=== PATIENT | female | born 1980 | race Caucasian/White ===

== ENCOUNTER 2021-05-07 05:01 | Emergency (ER) | payer SELFPAY ==
[2021-05-07 05:15] VITALS: RESP 20
[2021-05-07] MEDS: Haloperidol Lactate 5 MG/ML VIAL IM (05:15)
[2021-05-07] MEDS: diphenhydrAMINE HCL 50 MG/ML VIAL IM (05:15)
[2021-05-07 05:17] VITALS: BMI 25.0
[2021-05-07 05:30] VITALS: RESP 22
[2021-05-07 05:45] VITALS: RESP 18
--- NOTE | 2021-05-07 05:46 | ED_ITS ---
HPI - Psych General Chief Complaint: Psychiatric Symptoms Stated Complaint: Crisis Time Seen by Provider: 05/07/21 05:46 Source: EMS Mode of arrival: EMS Limitations: altered mental status History of Present Illness HPI Narrative: Patient is brought by EMS and escorted by police department. Patient is under the influence of alcohol. Patient made suicidal statements to hang herself while intoxicated. EMS gave her 2 mg of Versed EN route to the hospital, on arrival patient needed to be restrained, loud, being disruptive, refused to change, threatening the staff. Patient received Haldol 5 mg IM and Benadryl 50 mg IM. Related Data Allergies Allergy/AdvReac Type Severity Reaction Status Date / Time No Known Allergies Allergy Unverified 07/11/20 15:28 [No Known Allergies*] Review of Systems Review of Systems: Yes Unobtainable due to mental status and Other (Intoxicated) [facility] Past Medical History Medical History Alcohol abuse Social History Social History Patient : No Physical Exam Vital Signs: Vital Signs: Last Vital Signs Resp 16 05/07/21 06:15 Body Mass Index 25.0 Appearance: After being physically and chemically restrained, patient is alert, somnolent, easily arousable. Eyes: Pupils equal, round and reactive to light. ENT: Pharynx normal. Mild epistaxis, bleeding controlled Neck: Normal inspection. Neck supple. No lymph nodes noted. No crepitus CVS: Normal heart rate and rhythm. Pulses normal. Normal S1 and S2 Respiratory: No respiratory distress. Breath sounds normal. No Wheezing. No rales Abdomen: Soft and nontender. No rigidity. No distention. good BS x4 Skin: Skin warm and dry. Normal skin color. Normal skin turgor. Extremities: No lower extremity edema. No lower extremity edema. No Lacerations. No Rash Neuro: Oriented X 3. No motor deficit. No sensory deficit. Moving all extermities. No slurred speech. Course Course Course Narrative: Patient was chemically restrained and physically restrained. The restraints were removed 35 minutes after they were 1st placed. Patient is somnolent calm and cooperative. Once patient maurice up, she can be re-evaluated for suicidal ideation. sign out given to DR. Ball Discharge Plan Discharge Clinical Impression: Alcohol intoxication
[2021-05-07 06:00] VITALS: RESP 18
--- NOTE | 2021-05-07 06:00 | PC.NURSE ---
Patient was in mechanical restraint at time of arrival, escorted by PD, loud and disruptive, violent, combative. heavily intoxicated, no [id number], refused to do foreign exchange dealer, patient received 2 mg of versed IM with no effect, patient was put in four point restraint and administered Haldol 5 mg IM and Benadryl 50 IM, administered as ordered, patient was placed on one to one observation, at 0545 RL & LL restraint released as trial, and then @ 0555 LA & RA restraint released as ordered by provider. Patient is not changed to hospital gown, currently appears sleeping, no distress observed/reported, respiration +/=/non-labored bilaterally, will continue to monitor.
[2021-05-07 06:15] VITALS: RESP 16
--- NOTE | 2021-05-07 07:17 | PC.NURSE ---
report taken from khloe underwood pt came in restrained w pd escort d/t aggressive behaviors. ?etoh. on first contact w this rn, pt is attempting to ambulate to restroom, pt appears in street clothes, changed over w security program manager. pt has unsteady gait, but safe w standby assist. back to room w/o incident. breakfast tray at bedside. pt remembers some details about overnight events in recollection w vadim rn. in behavioral control.
[2021-05-07 09:18] LABS: COVID-19 Test Negative (Negative); IDNOW Serial# 9DD0AD1C
--- NOTE | 2021-05-07 09:18 | PC.NURSE ---
pt asking to leave, ambulating w steady gait, appears agitated. educated about pod process and ordered lab tests. pt agreeable to give urine after drinking some cold water. asking to speak w provider once labs have returned, pt in disagreement about circumstances that brought pt to pod under sec 12. denies si/hi thoughts. admits to multi substance use last night, explaining behaviors last night as due to that influence. sitting in [place] watching television in behavioral control.
[2021-05-07 09:39] LABS: Amphetamine Screen Urine Not Detected (Not Detect); Barbiturates, Urine Not Detected (Not Detect); Benzodiazepines Screen Urine POSITIVE (Not Detect); Cannabinoid Screen Urine Not Detected (Not Detect); Cocaine Screen Urine POSITIVE (Not Detect); Opiate Screen Urine Not Detected (Not Detect); Phencyclidine Screen Urine Not Detected (Not Detect)
--- NOTE | 2021-05-07 11:24 | MHC.CARE ---
CARE Team meets with patient, after she presented to the ED early this morning, and threatened to hang herself while under the influence of alcohol, cocaine and benzodiazepines. Pt is now clinically sober and adamantly denies SI. She denies hx of suicide attempt, inpt hospitalization or depression. She does vaguely acknowledge that she is struggling with addiction. Pt is fixated on being discharged from the ED. She does not consent to CARE Team calling her family members who she lives with, seemingly upset that she did not get to go to [place] with them this morning, but she does give verbal permission for CARE Team to call her close friend, Arpan [phone]. CARE Team speaks with Arpan, who is in daily contact with pt. He states that she has been struggling since a recent arrest. Pt was pulled over after going through a red light and was found to have elicit drugs on her. She is now on probation and was sent to rehab. She relapsed after rehab and was recently in a detox program, but relapsed again after leaving this program. 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 She owns a home that is now being rented out because she moved in with her boyfriend, but they recently broke up. Pt moved in with her mother, which has been a significant stressor. Pt's friend Arpan is concerned about pt's drinking and he was provided education regarding the sect 35 process. He denies any concerns relating to suicidality or depression. Pt denies numerous offers for CARE Team to assist her with getting back into substance use tx. Plan is for pt's friend Arpan to come and pick her up at 1230. Plan is discussed with VEE Sampson, who agrees with this plan.
== END 2021-05-07 12:17 | disposition home or self-care (01) ==
PROVIDERS: Emergency Provider Emergency Medicine
DX: F10.129 Alcohol abuse with intoxication, unspecified (principal); Y90.9 Presence of alcohol in blood, level not specified; R45.851 Suicidal ideations; Z20.822 Contact with and (suspected) exposure to COVID-19; Z79.899 Other long term (current) drug therapy
CPT/HCPCS: 36415; 80307; 87635; 96372; 99284; J1200

== ENCOUNTER 2022-11-02 12:04 | Outpatient (REF) | payer MEDICAID, SELFPAY ==
--- NOTE | ~2022-11-02 | MM_ITS ---
EXAMINATION: MM SCREENING DIGITAL BREAST TOMOSYNTHESIS, BILATERAL CLINICAL INFORMATION: Screening. Asymptomatic. The lifetime risk of breast cancer based on the Tyrer-Cuzick Model is 19.6%. Additional annual screening with breast MRI may be of benefit in women with a score of 20% or greater. COMPARISON: Mammography: None TECHNIQUE: Digital breast tomosynthesis is performed in both the craniocaudal and mediolateral oblique views along with computer-aided detection (CAD). Synthesized 2D images are generated from the tomosynthesis. FINDINGS: There are scattered areas of fibroglandular density (ACR BI-RADS breast composition Category b). There are no significant masses, abnormal calcifications, or other abnormalities. MM/MM tomosynthesis screening BI IMPRESSION: No specific mammographic evidence to suggest malignancy. ASSESSMENT: BI-RADS 1: Negative RECOMMENDATION: Routine annual mammography screening. This patient's information was entered into a reminder system with a target due date for their next mammogram.
== END 2022-11-02 12:05 | disposition home or self-care (01) ==
LOC: HO.MAMMO 12:04
PROVIDERS: PCP Registered Nurse; Visit Provider Registered Nurse
DX: Z12.31 Encounter for screening mammogram for malignant neoplasm of breast (principal)
CPT/HCPCS: 77063; 77067

== ENCOUNTER 2023-08-26 10:54 | Outpatient (REF) | payer MEDICAID, SELFPAY | END 2023-08-26 10:55 | disposition home or self-care (01) | LOC: HO.CHCLDS 10:54 | PROVIDERS: Visit Provider Student in an Organized Health Care Education/Training Program | DX: B89 Unspecified parasitic disease (principal) | CPT/HCPCS: 87086 ==

== ENCOUNTER 2023-08-30 13:27 | Outpatient (REF) | payer MEDICAID, SELFPAY ==
[2023-08-30 16:03] LABS: Adenovirus F 40/41 Not Detected (Not Detect.); Astrovirus Not Detected (Not Detect.); Campylobacter Not Detected (Not Detect.); Cryptosporidium Not Detected (Not Detect.); Cyclospora cayetanensis Not Detected (Not Detect.); E. coli EAEC Not Detected (Not Detect.); E. coli EPEC Not Detected (Not Detect.); E. coli ETEC Not Detected (Not Detect.); E. coli STEC Not Detected (Not Detect.); Entamoeba histolytica Not Detected (Not Detect.); Giardia lamblia Not Detected (Not Detect.); Norovirus GI/GII Not Detected (Not Detect.); Plesiomonas shigelloides Not Detected (Not Detect.); Rotavirus A Not Detected (Not Detect.); Salmonella Not Detected (Not Detect.); Sapovirus Not Detected (Not Detect.); Shigella sp./EIEC Not Detected (Not Detect.); Vibrio Not Detected (Not Detect.); Vibrio Cholerae Not Detected (Not Detect.); Yersinia enterocolitica Not Detected (Not Detect.)
== END 2023-08-30 13:28 | disposition home or self-care (01) ==
LOC: HO.CHCLNP 13:27
PROVIDERS: Visit Provider Student in an Organized Health Care Education/Training Program
DX: B89 Unspecified parasitic disease (principal)
CPT/HCPCS: 87507

== ENCOUNTER → 2023-11-08 12:15 | Outpatient (BNV) | payer MEDICAID, SELFPAY | PROVIDERS: PCP Registered Nurse; Visit Provider Radiology Diagnostic Radiology | DX: Z12.31 Encounter for screening mammogram for malignant neoplasm of breast (principal) | CPT/HCPCS: 77063; 77067 ==

== ENCOUNTER 2023-11-08 12:23 | Outpatient (REF) | payer MEDICAID, SELFPAY ==
--- NOTE | ~2023-11-08 | MM_ITS ---
EXAMINATION: MM SCREENING DIGITAL BREAST TOMOSYNTHESIS, BILATERAL CLINICAL INFORMATION: Screening. Asymptomatic. COMPARISON: Mammography: This study is compared with prior exams dating back to 2022. TECHNIQUE: Digital breast tomosynthesis is performed in both the craniocaudal and mediolateral oblique views along with computer-aided detection (CAD). Synthesized 2D images are generated from the tomosynthesis. FINDINGS: There are scattered areas of fibroglandular density (ACR BI-RADS breast composition Category b). There are no significant masses, abnormal calcifications, or other abnormalities. MM/MM tomosynthesis screening BI IMPRESSION: No mammographic evidence of malignancy. ASSESSMENT: BI-RADS BI-RADS 1 - Negative RECOMMENDATION: Routine annual mammography screening. 1 year F/U This examination should not preclude the clinical evaluation of a suspicious palpable abnormality. This patient's information was entered into a reminder system with a target due date for their next mammogram.
== END 2023-11-08 12:24 | disposition home or self-care (01) ==
LOC: HO.MAMMO 12:23
PROVIDERS: PCP Registered Nurse; Visit Provider Registered Nurse
DX: Z12.31 Encounter for screening mammogram for malignant neoplasm of breast (principal)
CPT/HCPCS: 77063; 77067

== ENCOUNTER 2023-11-12 18:53 | Inpatient (IN) | payer MEDICAID, SELFPAY ==
--- NOTE | ~2023-11-12 | CT_ITS ---
EXAMINATION: CT ABDOMEN AND PELVIS WITHOUT CONTRAST CLINICAL INFORMATION: Flank pain. Hematuria. COMPARISON: None available. TECHNIQUE: Multidetector volumetric imaging was performed from the superior aspect of the liver through the pubic symphysis. Sagittal and coronal reformatted images were obtained on the technologist's workstation. This CT examination was performed using dose optimization techniques as appropriate, variously including the following: *Automated exposure control *Adjustment of mA and/or kV according to patient size (this includes techniques or standardized protocols for targeted exams where dose is matched to indication/reason for exam; i.e. extremities or head) *Use of iterative reconstruction technique DLP: 461 mGy-cm FINDINGS: LUNG BASES: The visualized lung bases are unremarkable. LIVER, GALLBLADDER, AND BILIARY TREE: The liver is normal in size, shape, and attenuation. No focal hepatic lesion or biliary ductal dilatation is present. The gallbladder is unremarkable with no evidence of radiopaque gallstones, gallbladder wall thickening, or obvious pericholecystic inflammatory changes. PANCREAS: Unremarkable. SPLEEN: Unremarkable. ADRENAL GLANDS: Unremarkable. KIDNEYS AND URETERS: The kidneys are normal in size, shape, and attenuation. No hydronephrosis, hydroureter, or calculi seen. No perinephric stranding. BLADDER: Unremarkable. GASTROINTESTINAL TRACT: Diverticulosis. The small and large bowel are otherwise unremarkable. The appendix is unremarkable. Small hiatal hernia. Stomach is otherwise normal ABDOMINAL WALL: No significant hernia is appreciated. LYMPH NODES: Normal. VASCULAR: Unremarkable. PELVIC VISCERA: Unremarkable. OSSEOUS STRUCTURES: Left hip replacement. Old trauma to the left acetabulum and several screws CT/CT abdomen pelvis wo IV con IMPRESSION: No stone or hydronephrosis. Diverticulosis. No evidence of diverticulitis. Small esophageal hernia. Fleischner guidelines were followed.
[2023-11-12 19:48] VITALS: BP 162/113; PULSE 84; RESP 18; TEMP 36.3; O2SAT 97; BMI 28.3
--- NOTE | 2023-11-12 19:48 | ED_ITS ---
HPI - Abdominal Pain General Chief Complaint: Urogenital-Female Stated Complaint: ?Kidney issues/seen at urgent care Time Seen by Provider: 11/12/23 21:25 Related Data Home Medications Medication Instructions Recorded Confirmed clonidine HCl 0.1 mg tablet 0.1 mg PO TID PRN Anxiety 11/13/23 11/13/23 hydroxyzine HCl 25 mg tablet 50 mg PO DAILY PRN Anxiety 11/13/23 11/13/23 lisdexamfetamine 50 mg capsule 50 mg PO DAILY 11/13/23 11/13/23 (Vyvanse) quetiapine 100 mg tablet 100 - 200 mg PO DAILY PRN Sleep 11/13/23 11/13/23 topiramate 50 mg tablet 50 mg PO QPM PRN Headache 11/13/23 11/13/23 Allergies Allergy/AdvReac Type Severity Reaction Status Date / Time No Known Allergies Allergy Verified 11/24/23 10:25 [No Known Allergies*] PMFSH Past Medical History Onset Date is defined in the Problem List Problems that require an onset date and time if occurred within 24 hrs of arrival to the ED Aortic Dissection and Rupture; Neurologic impairment; Cardiopulmonary Arrest; Endotracheal Intubation; Insertion or Replacement of Mechanical Circulatory Assist Device Medical History Insomnia ADHD Mood disorder Alcohol abuse Surgical History (Updated 11/24/23 @ 10:27 by Tawana Dinh MA) History of foot surgery History of hip surgery Family History Family History (Updated 11/24/23 @ 10:28 by Tawana Dinh MA) Father Heart disease Paternal Grandfather Diabetes Social History Social History Household Members: None Housing: Apartment Do you presently have visiting nurse or other home services: No Unable to assess alcohol history related to: Refusing to respond Patient Tobacco Use Status: Current everyday Tobacco user Tobacco use type: Cigarette Cigarettes Per Day: 5 Years Smoked: 30 Substance Use Type: Crack/Cocaine and Marijuana service: No Physical Exam ED Vital Signs: BMI result Body Mass Index 28.3 Course Course Course Narrative: RME-19:50PM - 43yoF presenting to the ED with complaints of increased urination, hematuria, bilateral flank pain concerned for kidney issues. Referred by urgent care. Sister has significant history of kidney disease. There is a family history of kidney stones and cyst. Plan: Labs, CT scan of abdomen pelvis, UA. Patient will be sent back to the waiting room to be evaluated the ED. Medical Decision Making Lab Data 11/13/23 04:58 11/13/23 04:58 Labs: Lab Results 11/12/23 11/12/23 11/12/23 Range/Units 20:22 20:23 20:26 WBC 11.5 H (4.8-10.8) X10*3/uL RBC 3.79 L (4.20-5.50) X10*6/uL Hgb 13.0 (12.0-16.0) g/dl Hct 37.8 (37.0-47.0) % MCV 99.7 H (80.0-98.0) fL MCH 34.3 H (27.0-33.0) pg MCHC 34.4 (31.0-35.0) g/dl RDW 12.9 (11.0-16.0) % Plt Count 578 H (160-400) X10*3/uL MPV 11.6 (9.4-12.3) fL Immature Gran % (Auto) 0.3 (0.0-0.4) % Neut % (Auto) 69.8 (45-73) % Lymph % (Auto) 20.3 (20-40) % Canyon % (Auto) 6.5 (2-11) % Eos % (Auto) 1.9 (0-4) % Baso % (Auto) 1.2 (0-2) % Lymph # (Auto) 2.3 (1.2-4.9) X10*3/uL Canyon # (Auto) 0.8 (0.1-1.2) X10*3/uL Eos # (Auto) 0.2 (0.0-0.4) X10*3/uL Baso # (Auto) 0.1 (0.0-0.2) X10*3/uL Abs Immat Gran (auto) 0.04 H (0.00-0.03) X10*3/uL Absolute Neuts (auto) 8.0 (2.0-8.3) x10*3/uL Absolute Nucleated RBC 0.000 (0.0-0.012) X10*3/uL Nucleated RBC % (auto) 0.0 (0.0-0.2) /100WBC PT 11.0 L (11.1-13.3) SEC INR 0.9 (0.9-1.1) Sodium 143 (135-145) mmol/L Potassium 4.1 (3.3-5.1) mmol/L Chloride 104 (96-108) mmol/L Carbon Dioxide 27 (22-29) mmol/L Anion Gap 16 (12-20) BUN 49 H (9-16) mg/dL Creatinine 4.43 H* (0.5-1.4) mg/dL Estim Creat Clear Calc 15.1 Estimated GFR 11 Random Glucose 93 (60-115) mg/dL Calcium 10.4 H (8.4-10.2) mg/dL Magnesium 1.8 (1.6-2.6) mg/dL Total Bilirubin 0.4 (0.0-1.0) mg/dL AST 12 (5-31) U/L ALT 51 H (0-31) U/L Alkaline Phosphatase 88 (39-117) U/L Total Protein 7.4 (6.5-8.0) g/dL Albumin 3.9 (3.5-5.0) g/dL Beta HCG, Quant < 2 mIU/mL Urine Color Yellow Urine Appearance Clear Urine pH 6.5 (5.0-9.0) Ur Specific Seymour 1.010 (1.005-1.025) Urine Protein Trace (Neg-Trace) mg/dL Urine Glucose (UA) Negative (Negative) mg/dL Urine Ketones Negative (Negative) mg/dL Urine Blood Small (1+) H (Negative) Urine Nitrite Negative (Negative) Ur Leukocyte Esterase Trace H (Negative) Urine RBC 0-2 (0-2) /HPF Urine WBC 11-20 H (0-5) /HPF Ur Squamous Epith Cells 0-2 (0-2) /HPF Urine Bacteria None Seen (None Seen) Hyaline Casts 0-2 (0-2) /LPF Medications Administered Discontinued Medications Generic Name Dose Route Start Last Admin Trade Name Freq PRN Reason Stop Dose Admin Acetaminophen 650 mg 11/12/23 22:26 11/13/23 10:57 Acetaminophen 325 Mg Tablet PO 650 mg Q6H PRN Administration Pain, Mild (Pain Scale 1-3) Clonidine HCl 0.1 mg 11/13/23 13:36 11/13/23 15:38 Clonidine Hcl 0.1 Mg Tablet PO 0.1 mg TID PRN Administration Anxiety Protocol Diazepam 5 mg 11/13/23 06:18 11/13/23 06:46 Diazepam 10 Mg/2 Ml Cartridge IVPUSH 11/13/23 06:19 5 mg STAT STA Administration Enoxaparin Sodium 40 mg 11/12/23 22:30 11/13/23 02:41 Enoxaparin Sodium 40 Mg/0.4 Ml Syringe SUBCUT Not Given Q24H ALEJANDRO Enoxaparin Sodium 30 mg 11/12/23 22:46 11/13/23 02:42 Enoxaparin Sodium 40 Mg/0.4 Ml Syringe SUBCUT Not Given Q24H ALEJANDRO Enoxaparin Sodium 30 mg 11/12/23 23:00 11/12/23 23:46 Enoxaparin Sodium 30 Mg/0.3 Ml Syringe SUBCUT 30 mg Q24H ALEJANDRO Administration Hydromorphone HCl 0.5 mg 11/12/23 23:34 11/12/23 23:47 Hydromorphone Hcl 0.5 Mg/0.5 Ml Syringe IVPUSH 11/12/23 23:35 0.5 mg ONCE ONE Administration Protocol Ceftriaxone Sodium 1 gm/ 50 mls @ 100 mls/hr 11/12/23 22:30 11/13/23 02:00 Sodium Chloride IV Infused Q24H ALEJANDRO Infusion Sodium Chloride 1,000 mls @ 999 mls/hr 11/12/23 22:25 11/13/23 02:00 Ns IV 11/12/23 23:25 Infused .Q1H1M STA Infusion Sodium Chloride 1,000 mls @ 75 mls/hr 11/13/23 07:30 11/13/23 10:52 Ns IVCONT Not Given .[id number] ALEJANDRO Oxycodone HCl 5 mg 11/12/23 22:25 11/13/23 10:44 Oxycodone Hcl Immed Release 5 Mg Tablet PO 5 mg Q6H PRN Administration Pain, Severe (Pain Scale 7-10) Quetiapine Fumarate 100 mg 11/13/23 04:07 11/13/23 04:18 Quetiapine Fumarate 100 Mg Tablet PO 11/13/23 04:08 100 mg ONCE ONE Administration Sodium Chloride 3 ml 11/13/23 00:00 11/13/23 15:11 0.9 % Sodium Chloride Flush 3 Ml Syringe IVFLUSH Not Given QSHIFT [facility] Discharge Plan Discharge Clinical Impression: Renal failure, Abdominal pain Patient Disposition: Admitted As Inpatient Interventions: Admission Worksheet (ED) Last Done: 11/13/23 00:27 Discharge Date/Time: 11/13/23 00:52
[2023-11-12 20:27] LABS: MANUAL DIFF FLAG NO
[2023-11-12 20:33] LABS: Appearance Urine Clear; Color Urine Yellow; Glucose Urine UA Negative (Negative); Leukocyte Esterase Urine Trace (Negative); Nitrite Urine Negative (Negative); PH 6.5 (5.0-9.0); UMIC TRIGGER UACC YES; Urine Blood Small (1+) (Negative); Urine Ketones Negative (Negative); Urine Protein Trace mg/dL (Neg-Trace)
[2023-11-12 20:35] LABS: Basophils Absolute Auto 0.1 X10*3/uL (0.0-0.2); Basophils Percent Auto 1.2 % (0-2); Eosinophils Absolute Auto 0.2 X10*3/uL (0.0-0.4); Eosinophils Percent Auto 1.9 % (0-4); Hematocrit 37.8 % (37.0-47.0); Imm Gran Abs Auto 0.04 X10*3/uL (0.00-0.03); Imm Gran Pct Auto 0.3 % (0.0-0.4); Lymphocytes Absolute Auto 2.3 X10*3/uL (1.2-4.9); Lymphocytes Percent Auto 20.3 % (20-40); Mean Corpuscular HGB Conc 34.4 g/dl (31.0-35.0); Mean Corpuscular Hemoglobin 34.3 pg (27.0-33.0); Mean Corpuscular Volume 99.7 fL (80.0-98.0); Mean Platelet Volume 11.6 fL (9.4-12.3); Monocytes Absolute Auto 0.8 X10*3/uL (0.1-1.2); Monocytes Percent Auto 6.5 % (2-11); Neutrophils Percent Auto 69.8 % (45-73); Platelet Count 578 X10*3/uL (160-400); Red Blood Count 3.79 X10*6/uL (4.20-5.50); Red Cell Distribution Width 12.9 % (11.0-16.0); White Blood Count 11.5 X10*3/uL (4.8-10.8)
[2023-11-12 20:39] LABS: Bacteria Urine None Seen (None Seen); Hyaline Casts Urine 0-2 /LPF (0-2); RBC Urine 0-2 /HPF (0-2); Squamous Epithelial Cell Urine 0-2 /HPF (0-2); UACC Culture Trigger YES
[2023-11-12 20:43] LABS: INTERNATIONAL NORM RATIO 0.9 (0.9-1.1)
[2023-11-12 20:48] LABS: Anion Gap 16 (12-20); Carbon Dioxide 27 mmol/L (22-29); Chloride 104 mmol/L (96-108); Magnesium 1.8 mg/dL (1.6-2.6); Potassium 4.1 mmol/L (3.3-5.1); Sodium 143 mmol/L (135-145)
[2023-11-12 20:49] LABS: Alanine Aminotransferase 51 U/L (0-31); Albumin Level 3.9 g/dL (3.5-5.0); Alkaline Phosphatase 88 U/L (39-117); Aspartate Amino Transferase 12 U/L (5-31); Bilirubin Total 0.4 mg/dL (0.0-1.0); Blood Urea Nitrogen 49 mg/dL (9-16); Calcium 10.4 mg/dL (8.4-10.2); Glucose Random 93 mg/dL (60-115); HCG Quantitative < 2 mIU/mL; Total Protein 7.4 g/dL (6.5-8.0)
[2023-11-12 20:51] LABS: Creatinine Clr Calc Pharmacy 15.1; Estimated Glomerular Filt Rate 11
[2023-11-12 21:40] VITALS: BP 151/116; PULSE 89; RESP 14; TEMP 37; O2SAT 96
--- OUTSIDE RECORDS SUMMARY | 2023-11-12 21:50 | XMS_ITS | Continuity of Care Document ---
Author Name Unknown Organization [facility] Address [address] [place] [address]- Care Team Providers Care Licensed Sales Assistant Name Role Phone Ariadna LONG, Amaya Jeffries Primary Care Physici an Encounter [facility] Date(s): 04/04/21 - 05/04/21 [facility] [address], [place] [address] Immunizations Given and Recorded Vaccine Date Status Refusal Reason tetanus/diphtheria/pertussis, acel(Tdap) 04/08/09 Given Medications Ativan 1 mg oral tablet 1 tablet, By Mouth, 3 times a day, PRN Anxiety, 0 Refills Start Date: 04/12/09 Stop Date: 04/19/09 Status: Ordered Crutches See Instructions, # 1 pair, weight bearing crutches, 04/08/09 14:55:54 Start Date: 04/08/09 Status: Ordered esomeprazole 20 mg oral enteric coated capsule 1 capsule = 20 mg, By Mouth, Daily, # 30 capsule, 1 Refills, EC Capsule Start Date: 10/01/09 Stop Date: 12/04/09 Status: Ordered MS Contin 100 mg oral tablet, extended release 1 tablet, By Mouth, Every 12 hours, # 28 tablet, 0 Refills, ER Tablet Start Date: 10/05/09 Stop Date: 10/19/09 Status: Ordered MS Contin 15 mg oral tablet, extended release 1 tablet = 15 mg, By Mouth, Every 8 hours, # 42 tablet, 0 Refills Start Date: 10/05/09 Stop Date: 10/19/09 Status: Ordered MS Contin 15 mg oral tablet, extended release 1 tablet = 15 mg, By Mouth, Every 12 hours, # 28 tablet, 0 Refills Start Date: 10/05/09 Stop Date: 10/19/09 Status: Ordered oxycodone 15 mg oral tablet 1 tablet = 15 mg, By Mouth, Every 4 to 6 hours, PRN Pain , Moderate, # 40 tablet, 0 Refills, Tablet Start Date: 10/21/09 Stop Date: 10/29/09 Status: Ordered oxycodone 15 mg oral tablet 1 tablet = 15 mg, By Mouth, Every 4 to 6 hours, PRN Pain , Moderate, # 60 tablet, 0 Refills, Tablet Start Date: 10/21/09 Stop Date: 10/29/09 Status: Ordered oxycodone 15 mg oral tablet 1 tablet = 15 mg, By Mouth, Every 4 to 6 hours, PRN Pain , Moderate, # 60 tablet, 0 Refills, Tablet Start Date: 10/05/09 Stop Date: 10/12/09 Status: Ordered oxycodone 40 mg oral tablet, extended release 1 tablet = 40 mg, By Mouth, Every 12 hours, # 28 tablet, 0 Refills, ER Tablet Start Date: 10/04/09 Stop Date: 10/19/09 Status: Ordered Vicodin 500 mg-5 mg oral tablet 1 tablet, By Mouth, Every 4 hours, # 18 tablet, 0 Refills Start Date: 04/08/09 Stop Date: 04/11/09 Status: Ordered Zoloft 100 mg oral tablet = 100 mg, By Mouth, Daily, 0 Refills Start Date: 04/12/09 Stop Date: 05/11/09 Status: Ordered Problem List Condition Effective Dates Status Health Status Inform ant Chronic, continuous use of opioids(Confirmed) Active Hypersomnia(Confirmed) Active
--- OUTSIDE RECORDS SUMMARY | 2023-11-12 21:50 | XMS_ITS | Continuity of Care Document ---
Author Name Unknown Organization [facility] [employer] Address [address], [address] [place] [address]- Care Team Providers Care Polisher Eyeglass Frames Name Role Phone Deneen LONG, Hannah Rojas Primary Care Physicia n [id number] [address], [address] [place] [address]- Attending Physician: Thania Hinton MD Admitting Physician: Thania Hinton MD Referring Physician: Hannah Brothers NP Allergies, Adverse Reactions, Alerts No Known Allergies Immunizations Given and Recorded Vaccine Date Status Refusal Reason SARS-CoV-2 (COVID-19) mRNA BNT-162b2 vac 04/20/21 Recorded tetanus/diphtheria/pertussis, acel(Tdap) 04/08/09 Given hepatitis B adult vaccine 12/22/00 Recorded hepatitis B adult vaccine 11/17/00 Recorded Medications cloNIDine 0.1 mg oral tablet 0.1 mg, 1, tablet, By Mouth, Refills 0, Maintenance, 05/04/23 9:55:00 EDT, Partial fill upon patient request if the prescription is for a schedule II opioid drug. Start Date: 05/04/23 Status: Ordered Crutches See Instructions, # 1 pair, weight bearing crutches, 04/08/09 14:55:54 Start Date: 04/08/09 Status: Ordered Disulfiram By Mouth, Refills 0, Maintenance, 05/04/23 9:56:00 EDT, Partial fill upon patient request if the prescription is for a schedule II opioid drug. Start Date: 05/04/23 Status: Ordered QUEtiapine 200 mg oral tablet 200 mg, 1, tablet, By Mouth, Refills 0, Maintenance, 05/04/23 9:55:00 EDT, Partial fill upon patient request if the prescription is for a schedule II opioid drug. Start Date: 05/04/23 Status: Ordered Topiramate By Mouth, 0 Refills, Maintenance, 05/04/23 9:56:00 EDT, Partial fill upon patient request if the prescription is for a schedule II opioid drug. Start Date: 05/04/23 Status: Ordered Vyvanse 50 mg oral capsule 1 capsule = 50 mg, By Mouth, Daily in AM, 0 Refills, Maintenance, 05/04/23 9:51:00 EDT, Capsule, Partial fill upon patient request if the prescription is for a schedule II opioid drug. Start Date: 05/04/23 Status: Ordered Problem List Condition Confirmation Course Effective Dates Status Health St atus Informant Anxiety Confirmed Active Chronic, continuous use of opioids Confirmed Active Hypersomnia Confirmed Active Obese class I Confirmed Active Social History Social History Type Response Smoking Status 5-9 cigarettes (betw een 1/4 to 1/2 pack)/day in last 30 days entered on: 05/03/23 Sex Patient Care team information Care Team Personnel Name: Kareen HOGAN, Elma Position: Crystal SN RN Member Role: Primary Care Nurse Name: Hannah Brothers NP Position: Reference Physician Member Role: PCP Address: Address: [address] [place] [phone]- Care Team Related Persons Name: FRANCISCODENISE Address: home [address] [place] [address] Name: JOSH TURNER Address: [address] [place] [address]
--- OUTSIDE RECORDS SUMMARY | 2023-11-12 21:50 | XMS_ITS | Continuity of Care Document ---
Author Name Unknown Organization [facility] [employer] Address [address], [address] [place] [address]- Care Team Providers Care Senior Systems Architect Name Role Phone Deneen LONG, Hannah Rojas Primary Care Physicia n Encounter [facility] Date(s): 04/07/23 - 05/07/23 [facility] [address], [address] [place] [address]- Allergies, Adverse Reactions, Alerts No Known Allergies [...] Care team information Care Team Personnel Name: Elma Mathur RN Position: Crystal ARIAS RN Member Role: Primary Care Nurse Name: Hannah Brothers NP Position: Reference Physician Member Role: PCP Address: Address: [address] [place] [id number]- Care Team Related Persons Name: DENISE SINGH Address: home [address] [place] [address] Name: AJ TURNER Address: [address] [place] [address]
--- OUTSIDE RECORDS SUMMARY | 2023-11-12 21:50 | XMS_ITS | Continuity of Care Document ---
Author Name Unknown Organization [facility] ter Address [address] [place] [address]- Care Team Providers Care Medical Records Auditor Name Role Phone Ariadna LONG, Amaya Jeffries Primary Care Physici an Encounter [facility] Date(s): 01/05/23 - 01/05/[address] [address]- Discharge Disposition: A-D/C Home Attending Physician: Aaron Hager MD Admitting Physician: Aaron Hager MD Referring Physician: Not on Staff, Referring MD Allergies, Adverse Reactions, Alerts No Known Allergies Immunizations Given and Recorded Vaccine Date Status Refusal Reason SARS-CoV-2 (COVID-19) mRNA BNT-162b2 vac 04/20/21 Recorded tetanus/diphtheria/pertussis, acel(Tdap) 04/08/09 Given hepatitis B adult vaccine 12/22/00 Recorded hepatitis B adult vaccine 11/17/00 Recorded Medications Acetaminophen Tablet 650 mg, Tablet, By Mouth, Once, STAT, 01/05/23 12:50:00 EDT, Stop date 01/05/23 12:50:00 EDT Start Date: 01/05/23 Stop Date: 01/05/23 Status: Completed Ativan 1 mg oral tablet 1 tablet, [...] Date: 10/05/09 Stop Date: 10/19/09 Status: Ordered ondansetron 4 mg oral tablet, disintegrating 1 tablet = 4 mg, By Mouth, Every 8 hours, PRN as needed for nausea/vomiting, for 3 days, # 9 tablet, 0 Refills, Acute 01/08/23 15:01:00 EDT, 01/05/23 15:01:00 EDT, DIS Tablet, [facility] #[id number], Partial fill upon patient request if the presc... Start Date: 01/05/23 Stop Date: 01/08/23 Status: Ordered oxycodone 15 mg oral tablet [...] Date: 10/04/09 Stop Date: 10/19/09 Status: Ordered traZODone 300 mg oral tablet 1 tablet = 300 mg, By Mouth, Daily at bedtime, # 90 tablet, 3 Refills, Maintenance, 04/18/21 11:44:00 EDT, Tablet, [facility] #[id number], Partial fill upon patient request if the prescription is for a schedule II opioid drug., 158, cm, 04/04/21... Start Date: 04/18/21 Stop Date: 04/13/22 Status: Ordered Vicodin 500 mg-5 mg oral tablet 1 tablet, By Mouth, Every 4 hours, # 18 tablet, 0 Refills Start Date: 04/08/09 Stop Date: 04/11/09 Status: Ordered Zoloft 100 mg oral tablet = 100 mg, By Mouth, Daily, 0 Refills Start Date: 04/12/09 Stop Date: 05/11/09 Status: Ordered Problem List Condition Confirmation Course Effective Dates Status Health St atus Informant Chronic, continuous use of opioids Confirmed Active Hypersomnia Confirmed Active Results Radiology Reports * Exam Date Time Procedure Performing Provider Status 01/05/23 12:17 PM Chest 2 Views Frontal and Lat Hugo Kern; Auth (Verified) Notes: (Chest 2 Views Frontal and Lat) Reason For Exam: Angina RESULT: Chest 2 Views Frontal and Lat Chest 2 Views Frontal and Lat Hx of Present Illness: pt BIBA w c o withdrawl symptoms. Pt's last drink this morning. Pt claims she is due to visit her tomorrow with whom she does not drink. Pt claims she does not experience DTs if she has been medicated hospitalized beforehand. No interest in detox; Reason: Angina; Clinical Question(s): CHF COMPARISON: 04/08/2009. Report 02/01/2014. FINDINGS: No acute cardiopulmonary process IMPRESSION: No acute abnormality. WSN: [id number] Ordering Physician: Alessandra Jones Dictated By: Kory Gant MD Dictated Date/Time: 01/05/23 12:28 p Reviewed By: Kory Gant MD Signed By: Kory Gant MD Signed Date/Time: 01/05/23 12:28 pm Transcribed By: ANETTE Transcribed Date/Time: 01/05/23 12:27 pm Vital Signs Most recent to oldest [Reference Range]: 1 2 3 Oxygen Saturation [94-100 %] 99 % (01/05/23 3:53 PM) 98 % (01/05/23 11:36 AM) Pulse Rate [55-90 bpm] 94 bpm *H* (01/05/23 3:53 PM) 60 bpm (01/05/23 2:00 PM) 106 bpm *H* (01/05/23 12:16 PM) Blood Pressure [90-138/55-84 mm Hg] 139/86mm Hg *H* (01/05/23 3:53 PM) 136/90mm Hg (01/05/23 2:00 PM) 139/96mm Hg *H* (01/05/23 12:16 PM) Respiratory Rate [16-30 br/min] 18 br/min (01/05/23 3:53 PM) 16 br/min (01/05/23 2:08 PM) 18 br/min (01/05/23 2:00 PM) Temperature [96.8-100.4 DegF] 97.9 DegF (01/05/23 3:53 PM) 98 DegF (01/05/23 12:16 PM) 98.5 DegF (01/05/23 11:36 AM) Mode of Delivery (Oxygen) Room air (01/05/23 11:36 AM) Temperature Route Oral (01/05/23 3:53 PM) Oral (01/05/23 12:16 PM) Oral (01/05/23 11:36 AM) EKG study * Event Display: ECG 12-Lead Authored Date: Please click on pdf link to open report * Event Display: ECG 12-Lead Authored Date: Ventricular Rate: 99 BPM Atrial Rate: 99 BPM P-R Interval: 154 ms QRS Duration: 82 ms Q-T Interval: 350 ms QTC Calculation(Bazett): 449 ms P Simpson: 53 degrees R Simpson: 29 degrees T Simpson: 26 degrees Normal sinus rhythm Septal infarct , age undetermined Abnormal ECG No previous ECGs available Confirmed by GREGG PORTER DO ([id number]) on 01/05/2023 12:09:35 PM [place]: GREGG PORTER DO * Event Display: EKG Authored Date: Note * Alessandra Martin: PERFORM Event Display: Patient Education Leaflets Authored Date: Alcohol Withdrawal ?? [id number] Alcohol Withdrawal Alcohol withdrawal often starts after prolonged heavy drinking, and then you suddenly stop drinking. Or you cut down on your alcohol use. It is not one thing. It is a complex combination of signs andsymptoms that often occur together and define a certain problem or condition. ??? Alcohol withdrawal is potentially life-threatening. It is a medical emergency. ??? It can startas early as a couple of hours after your last drink. Or it may take 1 to 3 days to develop. ??? It can last from days to a week or more. ??? It can worsen very quickly. Signs and symptoms There are??several stages of alcohol withdrawal. But they overlap, as do their signs and symptoms. In the earlier stages, it most often includes: ??? Anxiety ??? Shakiness ??? Nausea and vomiting ???Sweating ??? Insomnia ??? Headaches ??? Fever ??? Mood swings, irritability, agitation, restlessness ?? Delirium tremens (DTs) DTs are a severe and life-threatening complication. If??DTs happen, they often start about 3 to 5 days after your last drink. They are potentially life threatening, so medical care should be sought. Symptoms of DTs include: ??? Sudden and severe mental or nervous system changes ??? Uncontrollable tremors ??? Severe disorientation, confusion, hallucinations ??? Heart racing, or irregular heartbeat??? High blood pressure ??? Seizures ??? Possible coma and ?? Home care ??? You'll need plenty of rest and fluids over the next several days. Eat regular meals and drink plenty of fluids to prevent dehydration. Don't drink any more alcohol. During this time, itis best that you're not alone. Stay with family or friends who can help and support you. You can also admit yourself to a residential detox program. ??? Don't drive until all symptoms are gone and you are feeling better. If you've had a seizure, don't drive until you've been examined by a healthcare provider. ??? If you were given sedative medicine to reduce your symptoms, don't take it more often than prescribed. Never take it with alcohol. ?? Follow-up care Once you've gone through the withdrawal symptoms, you've fought half of the garrido. To avoid the risk of going back to your past drinking pattern, it's vital that you get follow-up support and treatment. ??? Alcoholics Anonymous (AA) offers support through a self-help fellowship. There are no dues or fees. Search the internet or go to the AA website at www.aa.org to find a local meeting place. ??? [employer] offers support to families of alcohol users. Go to the Al-Anon website at www.al01Games Technologyanon.org . ??? Residential alcohol detox programs are available. Search the internet for treatment centers [facility]. ?? Call 911 Call 911 if any of these occur: ??? Seizure ??? Trouble breathing or slow, irregular breathing ??? Chest pain ??? Sudden weakness on a side of the body or sudden trouble speaking ??? Heavy bleeding or vomiting blood ??? Very drowsy or trouble awakening ??? Fainting or loss of consciousness ??? Rapid heart rate ?? When to get medical advice Call your healthcare provider right away??if any of these occur: ??? Severe shakiness ??? Hallucinations ??? Fever over 100.4?? F (38.0?? C) ??? Headache, confusion, extreme drowsiness, inability to awaken ??? Increasing upper abdominal pain ??? Repeated vomiting ?? Last Reviewed Date: 2021 ?? [id number] [employer]. All rights reserved. This information is not intended as a substitute for professional medical care. Always follow your healthcare professional's instructions. ?? * Pepper , CIS S: JOHNSON Gant MD, Kory P: VERIFY Event Display: Result: Authored Date: [id number] Chest 2 Views Frontal and Lat Hx of Present Illness: pt BIBA w c o withdrawl symptoms. Pt's last drink this morning. Pt claims she is due to visit her tomorrow with whom she does not drink. Pt claims she does not experience DTs if she has been medicated hospitalized beforehand. No interest in detox; Reason: Angina; Clinical Question(s): CHF COMPARISON: 04/08/2009. Report 02/01/2014. FINDINGS: No acute cardiopulmonary process IMPRESSION: No acute abnormality. WSN: [id number] Ordering Physician: Alessandra Jones Dictated By: Kory Gant MD Dictated Date/Time: 01/05/23 12:28 p Reviewed By: Kory Gant MD Signed By: Kory Gant MD Signed Date/Time: 01/05/23 12:28 pm Transcribed By: CSB Transcribed Date/Time: 01/05/23 12:27 pm Patient Care team information Care Team Personnel Name: Elma Mathur RN Position: [facility] SN RN Member Role: Primary Care Nurse Name: Ariadna LONG, Amaya Jeffries Position: [facility] PCO Associate Professional Member Role: PCP Address: Address: [address] [place] [address]- Name: Alessandra Martin Position: [facility] Associate Professional Member Role: ED Physician Scrap Preparer Address: Address: [address] [place] [address] [place] [address]- [place] Name: Anjelica Sharp Position: [facility] ED RN W/OE and Tasks Member Role: Patient Care Provider Name: Aaron Hager MD Position: [facility] ED Medicine MD Member Role: Admitting Physician Address: Address: [address] [facility] [place] [address]- [place] Name: Jackson Arguello Position: [facility] ED TA GERHARD Member Role: Search Engine Optimizer Care Team Related Persons Name: DENISE SINGH Address: home [address] [place] [address] Name: AJ TURNER Address: [address] [place] [address]
--- OUTSIDE RECORDS SUMMARY | 2023-11-12 21:50 | XMS_ITS | Continuity of Care Document ---
Author Name Unknown Organization [facility] ter Address [address] [place] [address]- Care Team Providers Care Answering Service Agent Name Role Phone Deneen LONG, Hannah Rojas Primary Care Physicia n Encounter [facility] Date(s): 06/12/23 - 06/12/[address] [address]- Encounter Diagnosis Right hip pain(Final) - 06/12/23 Congenital hip dysplasia(Final) - 06/12/23 Discharge Disposition: A-D/C Home Attending Physician: Antoni Pitt MD Admitting Physician: Antoni Pitt MD Referring Physician: Not on Staff, Referring [...] Confirmed Active Obese class I Confirmed Active Results Radiology Reports * Exam Date Time Procedure Performing Provider Status 06/12/23 3:11 PM XR Femur 2 Views Right Bein , Julieth; Au th (Verified) Notes: (XR Femur 2 Views Right) Reason For Exam: with Pain;Trauma RESULT: Femur 2 Views Right Femur 2 Views Right INDICATION: Hx of Present Illness: Right hip pain after walking on beach sand. Hx of hip problems and dislocations. Since getting here pt feeling better and now ambulatory but pain still remains; Reason: Trauma; with Pain; Clinical Question(s): Fracture COMPARISON: None. FINDINGS: Unremarkable soft tissue. There is no fracture or dislocation. Joint space is maintained. IMPRESSION: Normal. WSN: [id number] Ordering Physician: Antoni Pitt Dictated By: Jasmin Ward MD Dictated Date/Time: 06/12/23 3:27 pm Reviewed By: Jasmin Ward MD Signed By: Jasmin Ward MD Signed Date/Time: 06/12/23 3:27 pm Transcribed By: ANETTE Transcribed Date/Time: 06/12/23 3:27 pm * Exam Date Time Procedure Performing Provider Status 06/12/23 3:11 PM XR Femur 2 Views Left Bein , Julieth; Aut h (Verified) Notes: (XR Femur 2 Views Left) Reason For Exam: with Pain;Trauma RESULT: Femur 2 Views Left Femur 2 Views Left INDICATION: Hx of Present Illness: Right hip pain after walking on beach sand. Hx of hip problems and dislocations. Since getting here pt feeling better and now ambulatory but pain still remains; Reason: Trauma; with Pain; Clinical Question(s): Fracture COMPARISON: None. FINDINGS: Status post left total hip replacement. Surgical hardware is intact. No fracture or subluxation. Rest of the left femur is intact. IMPRESSION: No acute finding. WSN: [id number] Ordering Physician: Antoni Pitt Dictated By: Jasmin Ward MD Dictated Date/Time: 06/12/23 3:27 pm Reviewed By: Jasmin Ward MD Signed By: Jasmin Ward MD Signed Date/Time: 06/12/23 3:27 pm Transcribed By: ANETTE Transcribed Date/Time: 06/12/23 3:26 pm * Exam Date Time Procedure Performing Provider Status 06/12/23 3:11 PM Pelvis 1 or 2 Views Julieth Lott; Auth (Verified) Notes: (Pelvis 1 or 2 Views) Reason For Exam: With Pain;Trauma RESULT: Pelvis 1 or 2 Views Pelvis 1 or 2 Views Hx of Present Illness: Right hip pain after walking on beach sand. Hx of hip problems and dislocations. Since getting here pt feeling better and now ambulatory but pain still remains; Reason: Trauma;With Pain; Clinical Question(s): Fracture COMPARISON: 10/02/2009 FINDINGS: Status post left total hip replacement. Surgical hardware is intact. No fracture or subluxation. Multiple surgical screws in the left superior acetabulum. Unchanged fallopian tube occlusion device. IMPRESSION: No acute finding. WSN: [id number] Ordering Physician: Antoni Pitt Dictated By: Jasmin Ward MD Dictated Date/Time: 06/12/23 3:26 pm Reviewed By: Jasmin Ward MD Signed By: Jasmin Ward MD Signed Date/Time: 06/12/23 3:26 pm Transcribed By: ANETTE Transcribed Date/Time: 06/12/23 3:24 pm Vital Signs Most recent to oldest [Reference Range]: 1 2 Weight 90 kg (06/12/23 12:49 PM) Oxygen Saturation [94-100 %] 100 % (06/12/23 12:49 PM) 100 % (06/12/23 12:45 PM) Pulse Rate [55-90 bpm] 75 bpm (06/12/23 12:49 PM) 100 bpm *H* (06/12/23 12:45 PM) Blood Pressure [90-138/55-84 mm Hg] 188/ 75mm Hg *H* (06/12/23 12:49 PM) Respiratory Rate [16-30 br/min] 16 br/mi n (06/12/23 12:49 PM) Temperature [96.8-100.4 DegF] 98.0 DegF (06/12/23 12:49 PM) Mode of Delivery (Oxygen) Room air (06/12/23 12:49 PM) Room air (06/12/23 12:45 PM) Blood pressure sites Arm, left (06/12/23 12:49 PM) Temperature Route Oral (06/12/23 12:49 PM) Dry Weight 90 kg (06/12/23 12:49 PM) Social History Social History Type Response Smoking Status 5-9 cigarettes (betw een 1/4 to 1/2 pack)/day in last 30 days entered on: 05/03/23 Sex Patient Care team information Care Team Personnel Name: Elma Mathur RN Position: [facility] SN RN Member Role: Primary Care Nurse Name: Hannah Brothers NP Position: Reference Physician Member Role: PCP Address: Address: [address] [place] [id number] Name: Antoni Pitt MD Position: [facility] ED Medicine MD Member Role: Admitting Physician Address: Address: [address] [place] [address]- Name: Francisco Cooper Position: [facility] ED TA [facility] Member Role: Patient Care Provider Name: Sushila Vizcaino RN Position: [facility] ED RN W/OE and Tasks Member Role: Patient Care Provider Name: Ann Hylton NP Position: [facility] Associate Professional Member Role: ED Physician Wool Washer Address: Address: [address] [place] [address] Care Team Related Persons Name: FRANCISCO, DENISE Address: [address] [place] [address] Name: AJ TURNER Address: [address] [place] [address]
--- OUTSIDE RECORDS SUMMARY | 2023-11-12 21:50 | XMS_ITS | Continuity of Care Document ---
Author Name Unknown Organization [facility] Address [address] [place] [address]- Care Team Providers Care Knockout Man Name Role Phone Kathryn Cannon NP Primary Care Physician Encounter [facility] [place] Date(s): 04/04/21 - 04/11/21 [facility] [address] [place], [place] [address] Attending Physician: Ary Mann NP Immunizations Given and Recorded Vaccine Date Status [...] Date: 04/12/09 Stop Date: 05/11/09 Status: Ordered Vital Signs Most recent to oldest [Reference Range]: 1 Height 158 cm (04/04/21 2:04 PM)
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
--- OUTSIDE RECORDS SUMMARY | 2023-11-12 21:50 | XMS_ITS | Continuity of Care Document ---
Author Name Unknown Organization [facility] Address [address] [place] [address]- Care Team Providers Care Lead Oracle Developer Name Role Phone Deneen LONG, Hannah Rojas Primary Care Physicia n Encounter [facility] [place] Date(s): 04/29/23 - 05/29/23 [facility] [address] [place] [address]- Attending Physician: Stephanie Mendenhall Admitting Physician: AdmtrStephanie Referring Physician: Admtr, Ar8 Allergies, Adverse Reactions, Alerts No Known Allergies [...] Personnel Name: Kareen HOGAN, Elma Position: [facility] RN Member Role: Primary Care Nurse Name: Hannah Brothers NP Position: Reference Physician Member Role: PCP Address: Address: [address] [place] [address]- Care Team Related Persons Name: DENISE SINGH Address: [address] [place] [address] Name: AJ TURNER Address: [address] [place] [address]
--- OUTSIDE RECORDS SUMMARY | 2023-11-12 21:50 | XMS_ITS | Continuity of Care Document ---
Author Name Unknown Organization [facility] ter Address [address] [place] [address]- Care Team Providers Care Social Media Marketing Manager Name Role Phone Deneen LONG, Hannah Rojas Primary Care Physicia n Encounter [facility] [place] Date(s): 06/14/23 - 06/14/[address] [address]- Encounter Diagnosis Formication(Final) - 06/14/23 Cocaine use(Final) - 06/14/23 Alcohol abuse(Final) - 06/14/23 Discharge Disposition: A-D/C Home Attending Physician: Dom Yadav MD Admitting Physician: Dom Yadav MD Referring Physician: Not on Staff, Referring [...] Confirmed Active Obese class I Confirmed Active Vital Signs Most recent to oldest [Reference Range]: 1 Oxygen Saturation [94-100 %] 94 % (06/14/23 12:33 AM) Pulse Rate [55-90 bpm] 120 bpm *H* (06/14/23 12:33 AM) Respiratory Rate [16-30 br/min] 18 br/mi n (06/14/23 12:33 AM) Mode of Delivery (Oxygen) Room air (06/14/23 12:33 AM) Social History Social History Type Response Smoking Status 5-9 cigarettes (betw een 1/4 to 1/2 pack)/day in last 30 days entered on: 05/03/23 Sex Patient Care team information Care Team Personnel Name: Kareen HOGAN, Elma Position: [facility] SN RN Member Role: Primary Care Nurse Name: Hannah Brothers NP Position: Reference Physician Member Role: PCP Address: Address: [address] [place] [address]- Name: Ann Martinez MD Position: [facility] Resident Member Role: ED Resident Address: Address: [address] [place] [address] [place] [address]- Name: Dom Yadav MD Position: [facility] Resident Member Role: ED Attending Physician Address: Address: [address] [place] [address] [place] [address]- [place] Name: Mahnaz Downing RN Position: S ED RN W/OE and Tasks Member Role: Patient Care Provider Care Team Related Persons Name: DENISE SINGH Address: home [address] [place] [address] Name: AJ TURNER Address: [address] [place] [address]
--- OUTSIDE RECORDS SUMMARY | 2023-11-12 21:50 | XMS_ITS | Continuity of Care Document ---
Author Name Unknown Organization [facility] ter Address [address] [place] [address]- Care Team Providers Care Bit Tapper Name Role Phone Deneen LONG, Hannah Rojas Primary Care Physicia n Encounter [facility] [place] Date(s): 07/11/23 - 09/10/[address] [address]- Attending Physician: Thania Hinton MD Admitting Physician: Thania Hinton MD Allergies, Adverse Reactions, Alerts No Known [...] Reference Physician Member Role: PCP Address: Address: [address] [place] [address]- Care Team Related Persons Name: DENISE SINGH Address: [address] [place] [address] Name: JOSH TURNER Address: [address] [place] [address]
--- OUTSIDE RECORDS SUMMARY | 2023-11-12 21:50 | XMS_ITS | Continuity of Care Document ---
Author Name Unknown Organization [facility] ter Address [address] [place] [address]- Care Team Providers Care Instrument Technologist Name Role Phone Ariadna LONG, Amaya Jeffries Primary Care Physici an Encounter [facility] Date(s): 08/28/22 - 08/28/[address] [address]- Encounter Diagnosis Agitation(Final) - 08/28/22 Discharge Disposition: A-D/C Home Attending Physician: Anthony Garcia MD Admitting Physician: Anthony Garcia MD Referring Physician: Not on Staff, Referring MD Allergies, Adverse Reactions, Alerts No Known Allergies Immunizations Given and Recorded Vaccine Date Status Refusal Reason SARS-CoV-2 (COVID-19) mRNA BNT-162b2 vac 04/20/21 Recorded tetanus/diphtheria/pertussis, acel(Tdap) 04/08/09 Given hepatitis B adult vaccine 12/22/00 Recorded hepatitis B adult vaccine 11/17/00 Recorded Medications Ativan 1 mg oral tablet 1 [...] 3 Refills, Maintenance, 04/18/21 11:44:00 EDT, Tablet, [id number], Partial fill upon patient request if the [...] of opioids Confirmed Active Hypersomnia Confirmed Active Vital Signs Most recent to oldest [Reference Range]: 1 2 3 Oxygen Saturation [94-100 %] 95 % (08/28/22 7:18 PM) 97 % (08/28/22 3:06 PM) 88 % *L* (08/28/22 3:00 PM) Pulse Rate [55-90 bpm] 109 bpm *H* (08/28/22 7:18 PM) 93 bpm *H* (08/28/22 3:06 PM) 105 bpm *H* (08/28/22 1:26 PM) Blood Pressure [90-138/55-84 mm Hg] 103/80mm Hg (08/28/22 7:18 PM) 139/107mm Hg *H* (08/28/22 1:26 PM) Respiratory Rate [16-30 br/min] 16 br/min (08/28/22 7:18 PM) 22 br/min (08/28/22 1:26 PM) Temperature [96.8-100.4 DegF] 98.3 DegF (08/28/22 1:26 PM) Liters per Minute 2 L/min (08/28/22 3:06 PM) Mode of Delivery (Oxygen) Room air (08/28/22 7:18 PM) Nasal cannula (08/28/22 3:06 PM) Room air (08/28/22 3:00 PM) Blood pressure sites Arm, right (08/28/22 7:18 PM) Arm, left (08/28/22 1:26 PM) Temperature Route Oral (08/28/22 1:26 PM) Weight Obtained Via UTO (08/28/22 1:26 PM) Dry Weight Obtained Via UTO (08/28/22 1:26 PM) Patient Care team information Personnel Name: Ariadna LONG, Amaya Jeffries Address: Address: [address] [place] [address]
--- OUTSIDE RECORDS SUMMARY | 2023-11-12 21:50 | XMS_ITS | Continuity of Care Document ---
Author Name Unknown Organization [facility] ter Address [address] [place] [address]- Care Team Providers Care Title I Director Name Role Phone Ariadna LONG, Amaya Jeffries Primary Care Physici an Encounter [facility] [place] Date(s): 03/26/22 - 03/26/[address] [address]- Discharge Disposition: A-D/C Walkout Attending Physician: Not on Staff, Attending MD Admitting Physician: Not on Staff, Admitting MD Referring Physician: Not on Staff, Referring MD Immunizations Given and Recorded Vaccine Date [...]
--- OUTSIDE RECORDS SUMMARY | 2023-11-12 21:50 | XMS_ITS | Continuity of Care Document ---
Author Name Unknown Organization [facility] Yulissa Mercado [id number] Group Address [address] [facility], [address] [place] [address]- Care Team Providers Care Bin Cleaner Name Role Phone Deneen LONG, Hannah Rojas Primary Care Physicia n [id number]): [facility] - 09[facility]08[facility]23 [facility] [id number] [facility] [address] [facility] [address] [facility], [address] [place] [address]- Attending Physician: Thania Hinton MD Admitting Physician: [...] Reference Physician Member Role: PCP Address: Address: [address] [place] [id number]- Care Team Related Persons Name: FRANCISCODENISE Address: home [address] [place] [address] Name: JOSH TURNER Address: [address] [place] [address]
--- OUTSIDE RECORDS SUMMARY | 2023-11-12 21:50 | XMS_ITS | Continuity of Care Document ---
Author Name Unknown Organization [facility] Yulissa Mercado n's Group Address [address] [facility], [address] [place] [address]- Care Team Providers Care Strap Maker Name Role Phone Deneen LONG, Hannah Rojas Primary Care Physicia n Encounter [facility] Date(s): 03/01/23 - 03/31/23 [facility] [address] [facility], 4th [place] [address]- Allergies, Adverse Reactions, Alerts No Known Allergies [...] 3 Refills, Maintenance, 04/18/21 11:44:00 EDT, Tablet, [id number], Partial fill upon patient request if the [...] of opioids Confirmed Active Hypersomnia Confirmed Active Patient Care team information Care Team Personnel Name: Kareen RN, Elma Position: S SN RN Member Role: Primary Care Nurse Name: Deneen LONG, Hannah Rojas Position: Reference Physician Member Role: PCP Address: Address: [address] [place] [address]- Care Team Related Persons Name: DENISE SINGH Address: home [address] [place] [address] Name: AJ TURNER Address: [address] [place] [address]
--- OUTSIDE RECORDS SUMMARY | 2023-11-12 21:50 | XMS_ITS | Continuity of Care Document ---
Author Name Unknown Organization [facility] Address [address] [place] [address]- Care Team Providers Care Castings Drafter Name Role Phone Ariadna LONG, Amaya Jeffries Primary Care Physici an Encounter [facility] Date(s): 04/04/21 - 05/04/21 [facility] [address] [place], [place] [address] Attending Physician: Stephanie Mendenhall Admitting Physician: Stephanie Mendenhall Referring Physician: AdmtrStephanie Immunizations Given and Recorded Vaccine Date Status [...]
--- OUTSIDE RECORDS SUMMARY | 2023-11-12 21:50 | XMS_ITS | Continuity of Care Document ---
Author Name Unknown Organization [facility] Yulissa Mercado nBIOCUREXs Group Address [address] [facility], [address] [place] [address]- Care Team Providers Care Prototype Fabricator Name Role Phone Deneen LONG, Hannah Rojas Primary Care Physicia n [place] [facility] Date(s): 08/30/23 - 09/29/23 [facility]uliss[facility]ley PradhanBIOCUREXs [facility] [address] [facility], [address] [place] [address]- Attending Physician: Admlacie, Stephanie Admitting Physician: [id number] Referring Physician: Admtr, Ar8 Allergies, Adverse Reactions, [...] Reference Physician Member Role: PCP Address: Address: [address] [place] [address]- Care Team Related Persons Name: FRANCISCODENISE Address: [address] [place] [address] Name: JOSH TURNER Address: home [address] [place] [address]
--- NOTE | 2023-11-12 22:20 | ED_ITS ---
HPI - Female Genitourinary General Chief complaint: Urogenital-Female Stated complaint: ?Kidney issues/seen at urgent care Time Seen by Provider: 11/12/23 21:25 History of Present Illness HPI Narrative: Patient is a 43-year-old female presented today from urgent care with having increasing pain to the flank and abdomen area bilaterally. Pain on urination. Patient feels an increased hunger frequent weight loss been ongoing for the last few weeks. Came to the ED for further evaluation. Is no fever no chills. Did no leg swelling. Positive history of NSAID use. Patient has been using Motrin for the abdominal pain. Related Data Allergies Allergy/AdvReac Type Severity Reaction Status Date / Time No Known Allergies Allergy Verified 11/12/23 19:47 [No Known Allergies*] Review of Systems 2 Review of Systems: Positive abdominal pain ongoing for days Yes all other systems are reviewed and are negative PMFSH Past Medical History Onset Date is defined in the Problem List Problems that require an onset date and time if occurred within 24 hrs of arrival to the ED Aortic Dissection and Rupture; Neurologic impairment; Cardiopulmonary Arrest; Endotracheal Intubation; Insertion or Replacement of Mechanical Circulatory Assist Device Medical History Alcohol abuse Social History Social History Smoked in Last 30 Days: Yes Use of substances other than those prescribed or required for medical reasons: Yes Substance Use Type: Crack/Cocaine Substance Use Frequency: Occasionally Last Used Substance: Unknown Any prior treatment program specific to substance use: No Advance Directives: No Advance Directives Information Provided: No Patient : No Physical Exam 2 Vital Signs: Vital Signs: Last Vital Signs Temp 98.6 F 11/12/23 21:40 Pulse 89 11/12/23 21:40 Resp 14 11/12/23 21:40 BP 151/116 H 11/12/23 21:40 Pulse Ox 96 11/12/23 21:40 O2 Del Method Room Air 11/12/23 21:40 BMI result Body Mass Index 28.3 Appearance: Alert. Oriented X3. No acute distress. Eyes: Pupils equal, round and reactive to light. ENT: Pharynx normal. Neck: Normal inspection. Neck supple. No lymph nodes noted. No crepitus CVS: Normal heart rate and rhythm. Pulses normal. Normal S1 and S2 Respiratory: No respiratory distress. Breath sounds normal. No Wheezing. No rales Abdomen: Soft and nontender. No rigidity. No distention. good BS x4 Skin: Skin warm and dry. Normal skin color. Normal skin turgor. Extremities: No lower extremity edema. Neurovascular intact to all extremities. No Lacerations. No Rash Neuro: Oriented X 3. No motor deficit. No sensory deficit. Moving all extermities. No slurred speech Medical Decision Making Medical Decision Making [facility] Narrative: Patient's blood pressure elevated here in the emergency department of 150/116. Urine showed no evidence of infection but did have trace protein. Patient's creatinine is 4. There is no old creatinine to compare. CT scan of the abdomen pelvis was done. There was no acute evidence of post obstructive renal failure. The CT scan showed no acute finding no evidence of diverticulitis no evidence of abscess no evidence of perforation. IV fluids started. Will admit patient for further evaluation. Patient's hemoglobin is 13. Differential Diagnosis Differential Diagnoses: The differential diagnosis associated with the presentation includes Renal failure, obstruction, abscess, diverticulitis Admission/Observation Consideration of admission/observation: Escalation of care including admission/observation considered Lab Data [facility] Lab Attestation statement: I reviewed the patient's lab results. 11/12/23 20:23 11/12/23 20:22 Labs: Lab Results 11/12/23 11/12/23 11/12/23 Range/Units 20:22 20:23 20:26 WBC 11.5 H (4.8-10.8) X10*3/uL RBC 3.79 L (4.20-5.50) X10*6/uL Hgb 13.0 (12.0-16.0) g/dl Hct 37.8 (37.0-47.0) % MCV 99.7 H (80.0-98.0) fL MCH 34.3 H (27.0-33.0) pg MCHC 34.4 (31.0-35.0) g/dl RDW 12.9 (11.0-16.0) % Plt Count 578 H (160-400) X10*3/uL MPV 11.6 (9.4-12.3) fL Immature Gran % (Auto) 0.3 (0.0-0.4) % Neut % (Auto) 69.8 (45-73) % Lymph % (Auto) 20.3 (20-40) % [place] % (Auto) 6.5 (2-11) % Eos % (Auto) 1.9 (0-4) % Baso % (Auto) 1.2 (0-2) % Lymph # (Auto) 2.3 (1.2-4.9) X10*3/uL [place] # (Auto) 0.8 (0.1-1.2) X10*3/uL Eos # (Auto) 0.2 (0.0-0.4) X10*3/uL Baso # (Auto) 0.1 (0.0-0.2) X10*3/uL Abs Immat Gran (auto) 0.04 H (0.00-0.03) X10*3/uL Absolute Neuts (auto) 8.0 (2.0-8.3) x10*3/uL Absolute Nucleated RBC 0.000 (0.0-0.012) X10*3/uL Nucleated RBC % (auto) 0.0 (0.0-0.2) /100WBC PT 11.0 L (11.1-13.3) SEC INR 0.9 (0.9-1.1) Sodium 143 (135-145) mmol/L Potassium 4.1 (3.3-5.1) mmol/L Chloride 104 (96-108) mmol/L Carbon Dioxide 27 (22-29) mmol/L Anion Gap 16 (12-20) BUN 49 H (9-16) mg/dL Creatinine 4.43 H* (0.5-1.4) mg/dL Estim Creat Clear Calc 15.1 Estimated GFR 11 Random Glucose 93 (60-115) mg/dL Calcium 10.4 H (8.4-10.2) mg/dL Magnesium 1.8 (1.6-2.6) mg/dL Total Bilirubin 0.4 (0.0-1.0) mg/dL AST 12 (5-31) U/L ALT 51 H (0-31) U/L Alkaline Phosphatase 88 (39-117) U/L Total Protein 7.4 (6.5-8.0) g/dL Albumin 3.9 (3.5-5.0) g/dL Beta HCG, Quant < 2 mIU/mL Urine Color Yellow Urine Appearance Clear Urine pH 6.5 (5.0-9.0) Ur Specific [place] 1.010 (1.005-1.025) Urine Protein Trace (Neg-Trace) mg/dL Urine Glucose (UA) Negative (Negative) mg/dL Urine Ketones Negative (Negative) mg/dL Urine Blood Small (1+) H (Negative) Urine Nitrite Negative (Negative) Ur Leukocyte Esterase Trace H (Negative) Urine RBC 0-2 (0-2) /HPF Urine WBC 11-20 H (0-5) /HPF Ur Squamous Epith Cells 0-2 (0-2) /HPF Urine Bacteria None Seen (None Seen) Hyaline Casts 0-2 (0-2) /LPF Independent Interpretation I performed an independent interpretation of an: CT Scan (No natalia obstruction noted) Radiology Impression Discussion of test interpretation with radiology: I have reviewed the radiologist's reading. External Record Review External record reviewed: Inpatient record Discharge Plan Discharge Clinical Impression: Renal failure, Abdominal pain Patient Disposition: Admitted As Inpatient
--- NOTE | 2023-11-12 22:27 | P.HPHOSP_ITS ---
History of Present Illness Date of Service: 11/12/23 Chief Complaint: Flank pain This is a 43-year-old female with pertinent history of mood disorder, insomnia who presents to the emergency department for evaluation of flank pain. Patient states that over the last 2 days, she has been having progressively worse bilateral flank pain which is without any relief. She states she has been sick over the last 2 weeks with nausea, nonbloody emesis, generalized fatigability. Also complains of increasing urinary frequency and intermittent hematuria. States she had a fever of 101 at home and has been having chills. Does use NSAIDs. Patient admits poor p.o. intake over the last 2 weeks as she was sick. Sister with history of glomerulonephritis and aunt has some kidney issues. Patient states that as far as she knows she does not have any kidney issues. No chest discomfort, palpitations, shortness of breath, changes in bowel habits. States she took p.o. antibiotics prior to coming to the ER as she thought she had a kidney infection. In the emergency department, creatinine found to be elevated. Review of Systems 2 Constitutional: Constitutional: Reports chills, Reports fatigue, Reports fever(s), Reports lethargy, Reports malaise and Reports weakness Cardiovascular: Cardiovascular: Reports no additional cardiovascular complaints Respiratory: Respiratory: Reports no additional respiratory complaints Gastrointestinal: Gastrointestinal: Reports nausea Genitourinary: Genitourinary: Reports hematuria and Reports urinary urgency Neurologic: Reports weakness Endocrine: Endocrine: Reports fatigue PMFSH Medical History Insomnia ADHD Mood disorder Alcohol abuse Pertinent family history: Sister with GN and aunt with kidney and thyroid issues Social History Smoked in Last 30 Days: Yes Use of substances other than those prescribed or required for medical reasons: Yes Substance Use Type: Crack/Cocaine Substance Use Frequency: Occasionally Last Used Substance: Unknown Any prior treatment program specific to substance use: No Advance Directives: No Advance Directives Information Provided: No Patient : No Meds Allergies Allergy/AdvReac Type Severity Reaction Status Date / Time No Known Allergies Allergy Verified 11/12/23 19:47 [No Known Allergies*] Active Medications: Current Medications Ceftriaxone Sodium 1 gm/ (Sodium Chloride) 50 mls @ 100 mls/hr IV Q24H ALEJANDRO Sodium Chloride (Ns) 1,000 mls @ 999 mls/hr IV .Q1H1M STA Stop: 11/12/23 23:25 Oxycodone HCl (Oxycodone Hcl Immed Release 5 Mg Tablet) 5 mg PO Q6H PRN PRN Reason: Pain, Severe (Pain Scale 7-10) Physical Exam 2 Vital Signs and Narrative: Vital Signs: Last Vital Signs Temp 98.6 F 11/12/23 21:40 Pulse 89 11/12/23 21:40 Resp 14 11/12/23 21:40 BP 151/116 H 11/12/23 21:40 Pulse Ox 96 11/12/23 21:40 O2 Del Method Room Air 11/12/23 21:40 BMI result Body Mass Index 28.3 Middle-aged female lying in bed in my distress Neck supple, no JVD Regular rate and rhythm, S1-S2 heard Regular breath sounds bilaterally, no wheezing or crackles appreciated Abdomen with bilateral CVA tenderness, no guarding, no rigidity, no rebound tenderness Patient is awake, alert and oriented to self, place, time and person ; no focal motor deficit Psych: Normal mood No pedal edema Results Labs 11/12/23 20:23 11/12/23 20:22 Labs: Laboratory Results - last 24 hr 11/12/23 11/12/23 11/12/23 20:22 20:23 20:26 MCV 99.7 H MCH 34.3 H MCHC 34.4 RDW 12.9 Plt Count 578 H MPV 11.6 Immature Gran % (Auto) 0.3 Neut % (Auto) 69.8 Lymph % (Auto) 20.3 [place] % (Auto) 6.5 Eos % (Auto) 1.9 Baso % (Auto) 1.2 Lymph # (Auto) 2.3 [place] # (Auto) 0.8 Eos # (Auto) 0.2 Baso # (Auto) 0.1 Abs Immat Gran (auto) 0.04 H Absolute Neuts (auto) 8.0 Absolute Nucleated RBC 0.000 Nucleated RBC % (auto) 0.0 PT 11.0 L INR 0.9 Anion Gap 16 Estim Creat Clear Calc 15.1 Estimated GFR 11 Random Glucose 93 Calcium 10.4 H Magnesium 1.8 Total Bilirubin 0.4 AST 12 ALT 51 H Alkaline Phosphatase 88 Total Protein 7.4 Albumin 3.9 Beta HCG, Quant < 2 Urine Color Yellow Urine Appearance Clear Urine pH 6.5 Ur Specific [place] 1.010 Urine Protein Trace Urine Glucose (UA) Negative Urine Ketones Negative Urine Blood Small (1+) H Urine Nitrite Negative Ur Leukocyte Esterase Trace H Urine RBC 0-2 Urine WBC 11-20 H Ur Squamous Epith Cells 0-2 Urine Bacteria None Seen Hyaline Casts 0-2 Imaging Radiologist's Impressions: Impressions Abdomen/Pelvis CT 11/12/23 21:26 IMPRESSION: No stone or hydronephrosis. Diverticulosis. No evidence of diverticulitis. Small esophageal hernia. Fleischner guidelines were followed. Assessment and Plan (1) Acute kidney injury: Status: Acute Plan This is a 43-year-old female with pertinent history of mood disorder, insomnia who presents to the emergency department for evaluation of flank pain and will be admitted for evaluation of elevated creatinine. #. Clinical pyelonephritis: Will initiate empiric IV antibiotics. No sepsis. UA with 15-20 WBC, no bacteria but patient took p.o. antibiotics prior to coming to the ER. #. Acute kidney injury: Unclear baseline. UA with trace protein, will quantify. Urine sodium and creatinine pending. Monitor creatinine and urine output with crystalloid resuscitation. Avoid nephrotoxins. Nephrology consult #. Mood disorder: Continue home mood stabilizers Med rec pending DVT prophylaxis: Lovenox Full code Admit as inpatient and will require two night minimum hospital stay for closely monitoring of kidney function (as above), which is not possible in a lesser acute setting. Quality Stroke Does the patient have a stroke diagnosis?: No VTE Prior VTE?: No VTE Risk Level:: Medical - moderate - high VTE Device Contraindication: Treatment Not Indicated VTE Drug Contraindication: N/A - Med Ordered
[2023-11-12] MEDS: Enoxaparin Sodium 30 MG/0.3 ML SYRINGE SUBCUT (23:46)
[2023-11-12] MEDS: 0.9 % Sodium Chloride 1,000 ML 999 ML IV (23:46)
[2023-11-12] MEDS: cefTRIAXone sodium 1 GM in 0.9 % Sodium Chloride 50 ML IV (23:46)
[2023-11-12] MEDS: HYDROmorphone HCl 0.5 MG/0.5 ML SYRINGE IVPUSH (23:47)
[2023-11-13 01:08] VITALS: BP 160/98; PULSE 98; RESP 18; TEMP 36.6; O2SAT 98
[2023-11-13] MEDS: oxyCODONE HCl Immed Release 5 MG TABLET PO ×2 (01:20→10:44)
[2023-11-13] MEDS: Acetaminophen 325 MG TABLET 650 MG PO ×2 (01:20→10:57)
[2023-11-13] MEDS: 0.9 % Sodium Chloride Flush 3 ML SYRINGE IVFLUSH (01:21)
[2023-11-13 01:27] VITALS: BMI 29.4
[2023-11-13 02:59] LABS: Creatinine Urine 34.06 mg/dL; Total Protein Urine Random 32 mg/dL (<12)
[2023-11-13 03:23] VITALS: BP 136/94; PULSE 102; RESP 18; TEMP 36.9; O2SAT 98
[2023-11-13] MEDS: QUEtiapine Fumarate 100 MG TABLET PO (04:18)
[2023-11-13 06:10] LABS: MANUAL DIFF FLAG NO
[2023-11-13 06:15] LABS: Basophils Absolute Auto 0.2 X10*3/uL (0.0-0.2); Basophils Percent Auto 1.3 % (0-2); Eosinophils Absolute Auto 0.3 X10*3/uL (0.0-0.4); Eosinophils Percent Auto 2.6 % (0-4); Hematocrit 38.2 % (37.0-47.0); Hemoglobin 12.8 g/dl (12.0-16.0); Imm Gran Abs Auto 0.06 X10*3/uL (0.00-0.03); Imm Gran Pct Auto 0.5 % (0.0-0.4); Lymphocytes Absolute Auto 1.9 X10*3/uL (1.2-4.9); Lymphocytes Percent Auto 14.8 % (20-40); Mean Corpuscular HGB Conc 33.5 g/dl (31.0-35.0); Mean Corpuscular Hemoglobin 33.9 pg (27.0-33.0); Mean Corpuscular Volume 101.1 fL (80.0-98.0); Monocytes Absolute Auto 0.8 X10*3/uL (0.1-1.2); Monocytes Percent Auto 6.7 % (2-11); Neutrophils Absolute Auto 9.3 x10*3/uL (2.0-8.3); Neutrophils Percent Auto 74.1 % (45-73); Platelet Count 541 X10*3/uL (160-400); Red Blood Count 3.78 X10*6/uL (4.20-5.50); Red Cell Distribution Width 12.7 % (11.0-16.0); White Blood Count 12.5 X10*3/uL (4.8-10.8)
--- NOTE | 2023-11-13 06:17 | PM.EVENT ---
Event Note Date of Service: 11/13/23 Event Note: Admits to smoking crack 3 days prior to presentation. Also admits to using marijuana. Will obtain urine drug screen, consulted Addiction Team and monitor for withdrawals. Monitor CIWA Time Spent With Patient Time: Total time managing care of this patient today ____ minutes.
[2023-11-13 06:37] LABS: Anion Gap 18 (12-20); Blood Urea Nitrogen 43 mg/dL (9-16); Calcium 10.2 mg/dL (8.4-10.2); Carbon Dioxide 25 mmol/L (22-29); Chloride 102 mmol/L (96-108); Creatinine Clr Calc Pharmacy 19.1; Estimated Glomerular Filt Rate 14; Ethanol < 10 mg/dL; Glucose Random 90 mg/dL (60-115); Sodium 141 mmol/L (135-145)
[2023-11-13] MEDS: diazePAM 10 MG/2 ML CARTRIDGE 5 MG IVPUSH (06:46)
[2023-11-13 06:49] LABS: Amphetamine Screen Urine Not Detected (Not Detect); Barbiturates, Urine Not Detected (Not Detect); Benzodiazepines Screen Urine Not Detected (Not Detect); Cannabinoid Screen Urine POSITIVE (Not Detect); Cocaine Screen Urine POSITIVE (Not Detect); Fentanyl, urine Not Detected (Not Detect); Opiate Screen Urine Not Detected (Not Detect); Phencyclidine Screen Urine Not Detected (Not Detect)
--- NOTE | 2023-11-13 07:30 | PC.NURSE ---
Pt admitted to s3 at 01:00 hour from ED via stretcher for BHAVESH/pyelonephritis. On arrival pt appeared manic, was talking fast and required frequent redirection during admission assessment. pt gave vague responses to many admission questions including alcohol questions, stating Some nights I drink a lot, some nights I drink a little . When asked to give an average number of drinks per night pt changed the subject. Pt did however admit to using crack cocaine 72 hours prior to admission, as well as marijuana earlier in the day before coming to the hospital, though pt later denied ever saying this. Covering Dr. Goetz notified; CIWAs ordered and addiction medicine consult placed. Pt declined to change into offered hospital gown and would not let this creative services writer complete a full skin assessment, opted to remain in her own clothing. Bruising noted to visible BUEs. Pt c/o 9/10 pain on arrival indicated in LLQ. Pt requested ?a dilaudid pill instead of oxycodone?. Per chart review, pt was given a 1x IV dilaudid in the ED. Pt was offered the ordered prn oxycodone and tylenol which she agreed to take and reported +effect on reassessment. On later rounding pt requested more oxycodone, stating ?I hope he put in two this time?. Pt also requested seroquel. notified of pt requests. When pt was offered the ordered 100mg seroquel she became very upset and stated, ?It?s not ordered that way, but I sometimes take 200mg at home?. RN witness present during this interaction. +BSx4. Abdomen soft, round, TTP to LLQ. Heat packs provided for pain as per pt request; packs provided in pillow case though pt refused to use case, removing them and placing them directly onto her abdomen despite education about potential santo to skin. Pt c/o nausea but refused offered prn zofran. No vomiting noted. Pt tolerated her requested sandwich and meds. Pt reports hematuria though none is visible to this creative services writer. Cr/Na/total protein urine lab sample sent, odorless cyu. UTox later obtained from this same sample per lab. order placed for IV valium for potential withdrawal, tele and spo2 monitor placed and med given. Pt reported a recent fall at home this last week. Despite education on high falls risk measures for safety due to recent fall and sedating meds, pt is refusing her bed alarm. In-room camera in place for safety. Covering Dr. Goetz made aware. Handoff report given 06:47.
--- NOTE | 2023-11-13 07:43 | PC.NURSE ---
RN on duty for slot shift manager asked that I witness her interaction with this patient as patient was upset, uncooperative. Patient was upset RN brought only 100mg Seroquel, and stated that although her prescription isn't written as such, she stated she takes 200 instead of the 100mg. Patient was upset about dosage, and irritable and argumentative toward RN. Patient very vocal about not getting sleeping pill and being unable to sleep, laughed at nurse as she was calmly trying to explain Seroquel dosage and safety. Patient was asking for more Oxycodone, upset that she could not have at that time.
[2023-11-13 07:51] VITALS: BP 131/92; PULSE 100; RESP 18; TEMP 36.9; O2SAT 96
--- NOTE | 2023-11-13 08:31 | P.PNIM_ITS ---
Subjective Subjective Date of Service: 11/13/23 Interval History: insomnia, left flank pain Physical Exam 2 Vital Signs: Vital Signs: Last Vital Signs Temp 98.4 F 11/13/23 07:51 Pulse 100 11/13/23 07:51 Resp 18 11/13/23 07:51 BP 131/92 H 11/13/23 07:51 Pulse Ox 96 11/13/23 07:51 O2 Del Method Room Air 11/13/23 07:51 BMI result Body Mass Index 29.4 General: AO X 3, no acute distress Resp: CTA bilateral, no accessory muscles used CVS: S1,S2,RRR GI: soft, non tender, non distended Neuro: motor grossly intact, alert Psych: appropriate affect, appropriate insight Objective Data Active Medications Acetaminophen (Acetaminophen 325 Mg Tablet) 650 mg PO Q6H PRN PRN Reason: Pain, Mild (Pain Scale 1-3) Last Admin: 11/13/23 01:20 Dose: 650 mg Documented By: MATTHIAS Enoxaparin Sodium (Enoxaparin Sodium 30 Mg/0.3 Ml Syringe) 30 mg SUBCUT Q24H [facility] Last Admin: 11/12/23 23:46 Dose: 30 mg Documented By: RUBEN Ceftriaxone Sodium 1 gm/ (Sodium Chloride) 50 mls @ 100 mls/hr IV Q24H [facility] Last Infusion: 11/13/23 02:00 Dose: Infused Documented By: MATTHIAS Sodium Chloride (Ns) 1,000 mls @ 75 mls/hr IVCONT .[id number] [facility] Melatonin (Melatonin 3 Mg Tablet) 6 mg PO BEDTIME PRN PRN Reason: Insomnia Ondansetron HCl (Ondansetron Hcl 4 Mg/2 Ml Vial) 4 mg IVPUSH Q8H PRN PRN Reason: Nausea and Vomiting Oxycodone HCl (Oxycodone Hcl Immed Release 5 Mg Tablet) 5 mg PO Q6H PRN PRN Reason: Pain, Severe (Pain Scale 7-10) Last Admin: 11/13/23 01:20 Dose: 5 mg Documented By: MATTHIAS Sodium Chloride (0.9 % Sodium Chloride Flush 3 Ml Syringe) 3 ml IVFLUSH QSHI Last Admin: 11/13/23 01:21 Dose: 3 ml Documented By: MATTHIAS Labs 11/13/23 04:58 11/13/23 04:58 Labs: Laboratory Results - last 24 hr 11/12/23 11/12/23 11/12/23 20:22 20:23 20:26 MCV 99.7 H MCH 34.3 H MCHC 34.4 RDW 12.9 Plt Count 578 H MPV 11.6 Immature Gran % (Auto) 0.3 Neut % (Auto) 69.8 Lymph % (Auto) 20.3 Bledsoe % (Auto) 6.5 Eos % (Auto) 1.9 Baso % (Auto) 1.2 Lymph # (Auto) 2.3 Bledsoe # (Auto) 0.8 Eos # (Auto) 0.2 Baso # (Auto) 0.1 Abs Immat Gran (auto) 0.04 H Absolute Neuts (auto) 8.0 Absolute Nucleated RBC 0.000 Nucleated RBC % (auto) 0.0 PT 11.0 L INR 0.9 Anion Gap 16 Estim Creat Clear Calc 15.1 Estimated GFR 11 Random Glucose 93 Calcium 10.4 H Magnesium 1.8 Total Bilirubin 0.4 AST 12 ALT 51 H Alkaline Phosphatase 88 Total Creatine Kinase Total Protein 7.4 Albumin 3.9 Beta HCG, Quant < 2 Urine Color Yellow Urine Appearance Clear Urine pH 6.5 Ur Specific Asher 1.010 Urine Protein Trace Urine Glucose (UA) Negative Urine Ketones Negative Urine Blood Small (1+) H Urine Nitrite Negative Ur Leukocyte Esterase Trace H Urine RBC 0-2 Urine WBC 11-20 H Ur Squamous Epith Cells 0-2 Urine Bacteria None Seen Hyaline Casts 0-2 U Random Total Protein Ur Random Sodium Urine Creatinine Urine Opiates Screen Urine Fentanyl Screen Ur Barbiturates Screen Ur Phencyclidine Scrn Ur Amphetamines Screen U Benzodiazepines Scrn Urine Cocaine Screen U Marijuana (THC) Screen Ethyl Alcohol 11/12/23 11/13/23 11/13/23 23:38 01:20 04:58 MCV 101.1 H MCH 33.9 H MCHC 33.5 RDW 12.7 Plt Count 541 H MPV 12.0 Immature Gran % (Auto) 0.5 H Neut % (Auto) 74.1 H Lymph % (Auto) 14.8 L Bledsoe % (Auto) 6.7 Eos % (Auto) 2.6 Baso % (Auto) 1.3 Lymph # (Auto) 1.9 Bledsoe # (Auto) 0.8 Eos # (Auto) 0.3 Baso # (Auto) 0.2 Abs Immat Gran (auto) 0.06 H Absolute Neuts (auto) 9.3 H Absolute Nucleated RBC 0.000 Nucleated RBC % (auto) 0.0 PT INR Anion Gap 18 Estim Creat Clear Calc 19.1 Estimated GFR 14 Random Glucose 90 Calcium 10.2 Magnesium Total Bilirubin AST ALT Alkaline Phosphatase Total Creatine Kinase 23 L Total Protein Albumin Beta HCG, Quant Urine Color Urine Appearance Urine pH Ur Specific Asher Urine Protein Urine Glucose (UA) Urine Ketones Urine Blood Urine Nitrite Ur Leukocyte Esterase Urine RBC Urine WBC Ur Squamous Epith Cells Urine Bacteria Hyaline Casts U Random Total Protein 32 H Ur Random Sodium 88.0 Urine Creatinine 34.06 Urine Opiates Screen Not Detected Urine Fentanyl Screen Not Detected Ur Barbiturates Screen Not Detected Ur Phencyclidine Scrn Not Detected Ur Amphetamines Screen Not Detected U Benzodiazepines Scrn Not Detected Urine Cocaine Screen POSITIVE H U Marijuana (THC) Screen POSITIVE H Ethyl Alcohol < 10 Assessment and Plan (1) Acute kidney injury: Status: Acute Plan 43F PMH etoh dependence, cocaine use, mood disorder, presented with flank pain, hematuria, found to have tanner tanner ivf, follow up nephro, monitor bmp etohd ependence last drink 10/27/23 no withdrawal mood disorder seroquel once dose verified dvt prophylaxis - lovenox full code reason for continued hospitalization:tanner Quality Stroke Does the patient have a stroke diagnosis?: No VTE Prior VTE?: No VTE Risk Level:: Medical - moderate - high VTE Device Contraindication: Treatment Not Indicated VTE Drug Contraindication: N/A - Med Ordered
--- NOTE | 2023-11-13 08:59 | PHA.MEDREC ---
Pharmacy Consult ? Medication Reconciliation Pharmacy has completed the medication reconciliation. spoke with patient to confirm medications. When asked about the disulfiram she verbalized that she does not take it. She reports taking 1-2 tablets of the 100mg seroquel as needed. She explained she takes the topiramate as needed for headaches caused by the disulfiram. She explained that she takes 50mg of the hydroxyzine as needed instead of 25mg as prescribed.
--- NOTE | 2023-11-13 11:06 | MHC.CM.PN ---
PATIENT IS FROM HOME ALONE. INDEPENDENT. NO SERVICES OR MEDICAL EQUIPMENT. PCP: NIKHIL SHEN NO HCP. CM PROVIDED EDUCATION AND OFFERED ASSISTANCE. PT DECLINES AT THIS TIME, DP: GOAL IS HOME SELF CARE. HAS OWN TRANSPORTATION. CM WILL CONTINUE TO FOLLOW.
--- NOTE | 2023-11-13 13:34 | PC.NURSE ---
Pt rang stating she is going to leave the floor to smoke, pt told she can't leave the unit while inpatient. MD notified via tiger text, attempting to call security.
--- NOTE | 2023-11-13 14:00 | PC.NURSE ---
Vape pen seen given to patient from daughter and VMT. Security waiting to intervene.
[2023-11-13 15:13] VITALS: BP 161/98; PULSE 82; RESP 18; TEMP 37.1; O2SAT 96
[2023-11-13] MEDS: cloNIDine HCL 0.1 MG TABLET PO (15:38)
--- NOTE | 2023-11-13 16:41 | MHC.RECOVRN ---
Met with pt in 343 after consult placed to Addiction Medicine for cocaine use. Pt had presented to the ED, referred from for CT to rule out obstructing, elevated blood pressure, bilateral flank pain, increased urination w hematuria, increased hunger, wt loss, x a few weeks, black stool w intermittent diarrhea. Upon evaluation, pt admitted for BHAVESH. Pt standing in room, walking around, hyperverbal, manic, very difficult to engage in conversation. Pt reports she does not have an addiction, reports she uses cocaine recreationally. Pt reports hx OUD, last use in 2020. Pt does report alcohol use, last on 10/27. Pt reports some days it's 56 shots of whiskey, some days it's 10. Pt reports hx of Campral and disulfiram, however, states I don't take it because I want to drink. Unable to engage pt in conversation regarding recovery. Pt denies questions or concerns for t/w. T/w available as needed.
--- NOTE | 2023-11-13 17:36 | PC.NURSE ---
Pt came to the nurses station screaming, Disconnect me right now! Patient with posturing and threatening behavior. Iv was disconnected, pt asked to go to her room. Pt swearing at nursing staff. Security was called. Security witness patient behavior. Pt educated to be calm and treat hospital staff with respect.
--- NOTE | 2023-11-13 18:28 | PC.NURSE ---
Patient left AMA, Dr. Diaz at bedside, patient educated on consequences of leaving without treatment, patient insisted on leaving, IV removed, AMA formed signed
--- NOTE | 2023-11-14 06:54 | P.DS_ITS ---
DS: Providers Provider Date of Service: 11/13/23 Date of admission: 11/12/23 22:26 Primary care physician: NIKHIL Burr Consults: 11/12/23 22:46 Consult to Nephrology Routine Consulting Provider: [facility] Reason for consultation: BHAVESH 11/13/23 06:17 Addiction Medicine Stat Consulting Provider: Addiction Covering Reason for consultation: Cocaine use disorder DS: Diagnosis Discharge Diagnosis (1) Acute kidney injury: Status: Acute DS: Summary Hospital Course Hospital Course: from initial hpi: 43-year-old female with pertinent history of mood disorder, insomnia who present s to the emergency department for evaluation of flank pain. Patient states that over the last 2 days, she has been having progressively worse bilateral flank pain which is without any relief. She states she has been sick over the last 2 weeks with nausea, nonbloody emesis, generalized fatigability. Also complains of increasing urinary frequency and intermittent hematuria. States she had a fever of 101 at home and has been having chills. Does use NSAIDs. Patient admits poor p.o. intake over the last 2 weeks as she was sick. Sister with history of glomerulonephritis and aunt has some kidney issues. Patient states that as far as she knows she does not have any kidney issues. No chest discomfort, palpitations, shortness of breath, changes in bowel habits. States she took p.o. antibiotics prior to coming to the ER as she thought she had a kidney infection. In the emergency department, creatinine found to be elevated. hospital course: patient was admitted for BHAVESH, etiology was unclear, work up ongoing, however, patient decided to leave against medical advice. she was able to demonstrate understanding of the risks of doing so including . for etoh dependnce she was not in withdrawal. for moo didsorder her sertowuel and clonidine were continued. Time Attestation Discharge coordination time: Less than 30 minutes Quality: Safe Use of Opioids Does Pt have an Active Cancer Diagnosis on the Problem List?: No Quality: Stroke Does the patient have a stroke diagnosis?: No Physical Exam Vital Signs: Vital Signs: Last Vital Signs Temp 98.8 F 11/13/23 15:13 Pulse 82 11/13/23 15:13 Resp 18 11/13/23 15:13 BP 161/98 H 11/13/23 15:13 Pulse Ox 96 11/13/23 15:13 O2 Del Method Room Air 11/13/23 15:13 BMI result Body Mass Index 29.4 General: AO X 3, no acute distress Resp: CTA bilateral, no accessory muscles used CVS: S1,S2,RRR GI: soft, non tender, non distended Neuro: motor grossly intact, alert Psych: appropriate affect, appropriate insight DS: Data Data Completed and Pending Labs on day of discharge: Preliminary micro results at discharge 11/12/23 Unknown Urine Culture - Preliminary Urine clean catch - Urine bledsoe top No growth to date. Discharge Plan Discharge Anticipated Discharge Date/Time: 11/13/23 06:58 Patient Disposition: Left Against Medical Advice Discharge Diagnosis: bhavesh Referrals: Hannah Brothers FNP [Primary Care Provider] - 1 Week Discharge Medications: No Action clonidine HCl 0.1 mg tablet 0.1 mg PO TID PRN (Reason: Anxiety) quetiapine 100 mg tablet 100 - 200 mg PO DAILY PRN (Reason: Sleep) hydroxyzine HCl 25 mg tablet 50 mg PO DAILY PRN (Reason: Anxiety) topiramate 50 mg tablet 50 mg PO QPM PRN (Reason: Headache) lisdexamfetamine [Vyvanse] 50 mg capsule 50 mg PO DAILY Discharge Orders: Discharge Order (Routine); Ordered 11/14/23 Ordered By: Angel Bond Care Plan Goals: recovery Health Concerns: bhavesh Plan of Treatment: cannot treat as patient left ama Assessment: see above Discharge Date/Time: 11/13/23 18:28
== END 2023-11-13 18:28 | disposition left against medical advice (07) | DRG 469 ==
LOC: HO.ED 22:25 → HO.EDOVER 23:14 → HO.S3 23:40
PROVIDERS: Physician Assistant Medical; Admitting Provider Student in an Organized Health Care Education/Training Program; Emergency Provider Emergency Medicine Emergency Medical Services; PCP Registered Nurse; Visit Provider Internal Medicine
DX: N17.9 Acute kidney failure, unspecified (principal); F10.20 Alcohol dependence, uncomplicated; N12 Tubulo-interstitial nephritis, not specified as acute or chronic; F17.210 Nicotine dependence, cigarettes, uncomplicated; F39 Unspecified mood [affective] disorder; F90.9 Attention-deficit hyperactivity disorder, unspecified type; Z71.6 Tobacco abuse counseling; Z79.899 Other long term (current) drug therapy
CPT/HCPCS: 36415; 74176; 80048; 80053; 80307; 81001; 82550; 82570; 83735; 84156; 84300; 84702; 85025; 85610; 87086; 92950; 99285; J0696; J1170; J1650; J3360

== ENCOUNTER → 2023-11-12 21:48 | Outpatient (BNV) | payer MEDICAID, SELFPAY | PROVIDERS: Emergency Provider Emergency Medicine Emergency Medical Services; PCP Registered Nurse; Visit Provider Student in an Organized Health Care Education/Training Program | DX: N17.9 Acute kidney failure, unspecified (principal) | CPT/HCPCS: 99222; 99238 ==

== ENCOUNTER 2023-11-24 10:11 | Outpatient (AMB) | payer MEDICAID, SELFPAY ==
[2023-11-24 10:21] VITALS: BP 112/70; PULSE 90; O2SAT 98; BMI 27.5
--- NOTE | 2023-11-24 10:21 | HO.NEPHOV ---
HPI HPI Comments History of Present Illness Details 43-year-old female with history of mood disorder, insomnia who recently presented to the emergency department for evaluation of flank pain.2 days prior to presentation, she has been having progressively worse bilateral flank pain which is without any relief. she has been sick over the last 2 weeks with nausea, nonbloody emesis, generalized fatigability. Also complains of increasing urinary frequency and intermittent hematuria with a fever of 101 at home and has been having chills. Patient had poor p.o. intake over the last 2 weeks as she was sick. Sister with history of glomerulonephritis and aunt has some kidney issues. She has history of cocaine abuse. She had no chest discomfort, palpitations, shortness of breath, changes in bowel habits and the time of hospital presentation. She claimed that she took p.o. antibiotics prior to coming to the ER as she thought she had a kidney infection. In the ER she was found to have BHAVESH, etiology was unclear, work up was ongoing, however, patient decided to leave against medical advice. She is currently seen in consultation for her BHAVESH in the office. She feels improved. She does not have any nausea, vomiting, diarrhea, shortness of breath, paroxysmal nocturnal dyspnea, orthopnea or any urinary symptoms. She continues to abuse cocaine and has history of alcohol abuse disorder. [facility] Medical History Insomnia ADHD Mood disorder Alcohol abuse Surgical History (Updated 11/24/23 @ 10:27 by Tawana Dinh MA) History of foot surgery History of hip surgery Family History (Updated 11/24/23 @ 10:28 by Tawana Dinh MA) Father Heart disease Paternal Grandfather Diabetes Social History Household Members: None Housing: Apartment Do you presently have visiting nurse or other home services: No Unable to assess alcohol history related to: Refusing to respond Patient Tobacco Use Status: Current everyday Tobacco user Tobacco use type: Cigarette Cigarettes Per Day: 5 Years Smoked: 30 Substance Use Type: Crack/Cocaine and Marijuana service: No Vital Signs 11/24/23 10:21 Height 5 ft 2 in Weight 150 lb 8 oz BMI 27.5 BP 112/70 Blood Pressure Location Lt brachial Position Sitting Pulse 90 Pulse Source Pulse Oximeter Pulse Oximetry (%) 98 Oxygen Delivery Method Room Air Physical Exam Vital Signs: Last Vital Signs Pulse 90 11/24/23 10:21 BP 112/70 11/24/23 10:21 Pulse Ox 98 11/24/23 10:21 Oxygen Delivery Method Room Air 11/24/23 10:21 BMI result Body Mass Index 27.5 Const General: comfortable and no acute distress Orientation/consciousness: patient oriented x3 HEENT Head: Yes normocephalic Mouth: Normal oral and palatal mucosa present Eyes EOM: EOMs intact bilaterally Neck Neck: Yes supple Resp Auscultation: clear to auscultation bilaterally Cardio Jugular venous distension: no JVD Rate: regular rate GI Palpation (GI): Soft to palpation Auscultation: normal bowel sounds General: Yes no CVA tenderness Back/Spine/Pelvis Back: no CVA tenderness Skin General skin exam: no rashes or lesions noted Neuro General: patient oriented x3 and moves all extremities Extrem General: Yes no pedal edema Assessment & Plan Assessment & Plan (1) Acute kidney injury: Code(s): N17.9 - Acute kidney failure, unspecified Plan Rachelle most likely had BHAVESH from tubular injury. Differential diagnosis include jeffry infectious GN(unlikely) or ANCA vasculitis(unlikely) given her history of cocaine abuse. She also might have had renal vasoconstriction from cocaine. Her urine output is good and there is no reason to suspect any obstructive uropathy. I have ordered complement levels, Anca repeat blood chemistry. I also had urine culture given she recently had urinary tract infection. She is hemodynamically stable and her volume status is optimal. She has no orthostatic symptoms. She maintains good hydration. I counseled her to avoid cocaine and abstain from nonsteroidal anti-inflammatories to the best she can. Hopefully just with supportive care, her renal functions have settled to baseline. I answered all her questions. Follow-up appointment given Orders: Orders Complete Blood Count Auto Diff 11/24/23 N17.9 - Acute kidney failure, unspecified Electrolytes 11/24/23 N17.9 - Acute kidney failure, unspecified Calcium 11/24/23 N17.9 - Acute kidney failure, unspecified Blood Urea Nitrogen 11/24/23 N17.9 - Acute kidney failure, unspecified Complement C3 11/24/23 N17.9 - Acute kidney failure, unspecified Complement C4 11/24/23 N17.9 - Acute kidney failure, unspecified ANCA Vasculitides 11/24/23 N17.9 - Acute kidney failure, unspecified Creatinine 11/24/23 N17.9 - Acute kidney failure, unspecified Urine Culture 11/24/23 N17.9 - Acute kidney failure, unspecified Coding Level of Care Code New Pt Level 4 (63743) Diagnoses Acute kidney injury N17.9 Results Reviewed Nephrology Results: Hgb 12.8 g/dl (12.0-16.0) 11/13/23 WBC 12.5 X10*3/uL (4.8-10.8) H 11/13/23 Plt Count 541 X10*3/uL (160-400) H 11/13/23 Sodium 139 mmol/L (135-145) 11/30/23 Potassium 3.8 mmol/L (3.3-5.1) 11/30/23 Chloride 104 mmol/L (96-108) 11/30/23 Carbon Dioxide 25 mmol/L (22-29) 11/30/23 BUN 16 mg/dL (9-16) 11/30/23 Creatinine 1.03 mg/dL (0.5-1.4) 11/30/23 Calcium 9.8 mg/dL (8.4-10.2) 11/30/23 Urine Protein Trace mg/dL (Neg-Trace) 11/12/23 Urine Creatinine 34.06 mg/dL 11/13/23
== END 2023-11-24 11:40 | disposition home or self-care (01) ==
PROVIDERS: PCP Registered Nurse; Visit Provider Internal Medicine Nephrology
DX: N17.9 Acute kidney failure, unspecified (principal)
CPT/HCPCS: 99204

== ENCOUNTER → 2023-11-24 10:11 | Outpatient (BNVA) | payer MEDICAID, SELFPAY | PROVIDERS: PCP Registered Nurse; Visit Provider Internal Medicine Nephrology | DX: N17.9 Acute kidney failure, unspecified (principal) | CPT/HCPCS: 99202 ==

== ENCOUNTER 2023-11-30 13:33 | Outpatient (REF) | payer MEDICAID, SELFPAY ==
[2023-11-30 14:44] LABS: Alanine Aminotransferase 28 U/L (0-31); Albumin Level 4.1 g/dL (3.5-5.0); Alkaline Phosphatase 92 U/L (39-117); Anion Gap 14 (12-20); Aspartate Amino Transferase 35 U/L (5-31); Bilirubin Direct 0.1 mg/dL (0.0-0.5); Bilirubin Total 0.3 mg/dL (0.0-1.0); Blood Urea Nitrogen 16 mg/dL (9-16); Calcium 9.8 mg/dL (8.4-10.2); Carbon Dioxide 25 mmol/L (22-29); Chloride 104 mmol/L (96-108); Estimated Glomerular Filt Rate 59; Glucose Random 74 mg/dL (60-115); Potassium 3.8 mmol/L (3.3-5.1); Sodium 139 mmol/L (135-145); Total Protein 7.3 g/dL (6.5-8.0)
== END 2023-11-30 13:34 | disposition home or self-care (01) ==
LOC: HO.LAB 13:33
PROVIDERS: PCP Registered Nurse; Visit Provider Registered Nurse
DX: N17.9 Acute kidney failure, unspecified (principal)
CPT/HCPCS: 36415; 80048; 80076

== ENCOUNTER 2024-01-21 09:48 | Outpatient (AMB) | payer MEDICAID, SELFPAY ==
[2024-01-21 09:59] VITALS: BP 112/80; PULSE 99; O2SAT 99; BMI 27.3
--- NOTE | 2024-01-21 09:59 | HO.NEPHOV_ITS ---
HPI HPI Comments History of Present Illness Details 43-year-old female with history of mood disorder, insomnia who recently presented to the emergency department for evaluation of flank pain.2 days prior to presentation, she has been having progressively worse bilateral flank pain which is without any relief. she has been sick over the last 2 weeks with nausea, nonbloody emesis, generalized fatigability. Also complains of increasing urinary frequency and intermittent hematuria with a fever of 101 at home and has been having chills. Patient had poor p.o. intake over the last 2 weeks as she was sick. Sister with history of glomerulonephritis and aunt has some kidney issues. She has history of cocaine abuse. She had no chest discomfort, palpitations, shortness of breath, changes in bowel habits and the time of hospital presentation. She claimed that she took p.o. antibiotics prior to coming to the ER as she thought she had a kidney infection. In the ER she was found to have BHAVESH, etiology was unclear, work up was ongoing, however, patient decided to leave against medical advice. She is currently seen in consultation for her BHAVESH in the office. She feels improved. She does not have any nausea, vomiting, diarrhea, shortness of breath, paroxysmal nocturnal dyspnea, orthopnea or any urinary symptoms. She continues to abuse cocaine and has history of alcohol abuse disorder. [facility] Medical History Insomnia ADHD Mood disorder Alcohol abuse Surgical History History of foot surgery History of hip surgery Family History Father Heart disease Paternal Grandfather Diabetes Social History Household Members: None Housing: Apartment Do you presently have visiting nurse or other home services: No Unable to assess alcohol history related to: Refusing to respond Patient Tobacco Use Status: Current everyday Tobacco user Tobacco use type: Cigarette Cigarettes Per Day: 5 Years Smoked: 30 Substance Use Type: Crack/Cocaine and Marijuana service: No Vital Signs 01/21/24 09:59 Height 5 ft 2 in Weight 149 lb 4 oz BMI 27.3 BP 112/80 Blood Pressure Location Lt brachial Position Sitting Pulse 99 Pulse Source Pulse Oximeter Pulse Oximetry (%) 99 Oxygen Delivery Method Room Air Physical Exam Vital Signs: Last Vital Signs Pulse 99 01/21/24 09:59 BP 112/80 01/21/24 09:59 Pulse Ox 99 01/21/24 09:59 Oxygen Delivery Method Room Air 01/21/24 09:59 BMI result Body Mass Index 27.3 Const General: comfortable and no acute distress Orientation/consciousness: patient oriented x3 HEENT Head: Yes normocephalic Mouth: Normal oral and palatal mucosa present Eyes EOM: EOMs intact bilaterally Neck Neck: Yes supple Resp Auscultation: clear to auscultation bilaterally Cardio Jugular venous distension: no JVD Rate: regular rate GI Palpation (GI): Soft to palpation Auscultation: normal bowel sounds General: Yes no CVA tenderness Back/Spine/Pelvis Back: no CVA tenderness Skin General skin exam: no rashes or lesions noted Neuro General: patient oriented x3 and moves all extremities Extrem General: Yes no pedal edema Assessment & Plan Assessment & Plan (1) Acute kidney injury: Code(s): N17.9 - Acute kidney failure, unspecified Plan Rachelle most likely had BHAVESH from tubular injury which has been resolved. Differential diagnosis for BHAVESH included jeffry infectious GN(unlikely) or ANCA vasculitis(unlikely) given her history of cocaine abuse. She also might have had renal vasoconstriction from cocaine. Her urine output is good and there is no reason to suspect any obstructive uropathy. All the W/U was negative. She is hemodynamically stable and her volume status is optimal. She has no orthostatic symptoms. She maintains good hydration. I counseled her to avoid cocaine and abstain from nonsteroidal anti-inflammatories to the best she can. I answered all her questions. Follow-up as needed Coding Level of Care Code Est Pt Level 3 (19311) Diagnoses Acute kidney injury N17.9 Results Reviewed Nephrology Results: Hgb 12.8 g/dl (12.0-16.0) 11/13/23 WBC 12.5 X10*3/uL (4.8-10.8) H 11/13/23 Plt Count 541 X10*3/uL (160-400) H 11/13/23 Sodium 139 mmol/L (135-145) 11/30/23 Potassium 3.8 mmol/L (3.3-5.1) 11/30/23 Chloride 104 mmol/L (96-108) 11/30/23 Carbon Dioxide 25 mmol/L (22-29) 11/30/23 BUN 16 mg/dL (9-16) 11/30/23 Creatinine 1.03 mg/dL (0.5-1.4) 11/30/23 Calcium 9.8 mg/dL (8.4-10.2) 11/30/23 Urine Protein Trace mg/dL (Neg-Trace) 11/12/23 Urine Creatinine 34.06 mg/dL 11/13/23
== END 2024-01-21 10:20 | disposition home or self-care (01) ==
PROVIDERS: Family Provider Registered Nurse; PCP Registered Nurse; Visit Provider Internal Medicine Nephrology
DX: N17.9 Acute kidney failure, unspecified (principal)
CPT/HCPCS: 99213

== ENCOUNTER → 2024-01-21 09:48 | Outpatient (BNVA) | payer MEDICAID, SELFPAY | PROVIDERS: PCP Registered Nurse; Visit Provider Internal Medicine Nephrology | DX: N17.9 Acute kidney failure, unspecified (principal) | CPT/HCPCS: 99212 ==

== ENCOUNTER 2024-05-11 13:28 | Emergency (ER) | payer MEDICAID, SELFPAY ==
--- NOTE | 2024-05-11 13:35 | ED.PSYCH ---
HPI - Psych General Chief Complaint: ETOH/Substance Use Stated Complaint: SECTION 12 ETOH, AGGRESION AND UNCOOPERTIVE Time Seen by Provider: 05/11/24 13:32 Source: patient Mode of arrival: EMS Limitations: altered mental status History of Present Illness ED Provider: Dr. Myron Pinzon HPI Narrative: 44-year-old female with a history of alcohol use disorder who was brought to emergency department on a Section 12. The patient was intoxicated and belligerent and she would not answer questions. The following was obtained from the patient's Section 12: ?Suicidal, depression ? ?Rachelle is heavily intoxicated and attempted suicide. Rachelle wrapped a cord around her neck and attempted to hang herself by the ceiling fan ? Related Data Home Medications ?Medication ?Instructions ?Recorded ?Confirmed lisdexamfetamine 40 mg capsule 40 mg PO DAILY 05/11/24 05/11/24 (Vyvanse) lisdexamfetamine 60 mg capsule 60 mg PO QAM 05/11/24 05/11/24 (Vyvanse) quetiapine 50 mg tablet 50 mg PO BEDTIME PRN Insomnia 05/11/24 05/11/24 Allergies Allergy/AdvReac Type Severity Reaction Status Date / Time No Known Allergies Allergy Verified 05/11/24 14:00 [No Known Allergies*] Review of Systems Review of Systems: Yes all other systems are reviewed and are negative PMFSH Past Medical History Medical History Insomnia ADHD Mood disorder Alcohol abuse Surgical History History of foot surgery History of hip surgery Family History Family History Father Heart disease Paternal Grandfather Diabetes Social History Social History Household Members: None Housing: Apartment Do you presently have visiting nurse or other home services: No Unable to assess alcohol history related to: Refusing to respond Patient Tobacco Use Status: Current everyday Tobacco user Tobacco use type: Cigarette Cigarettes Per Day: 5 Years Smoked: 30 Substance Use Type: Crack/Cocaine and Marijuana Advance Directives: No service: No Physical Exam Vital Signs: Vital Signs: Last Vital Signs Temp 98 F 05/11/24 13:52 Pulse 96 05/11/24 14:45 Resp 16 05/11/24 14:45 BP 104/61 05/11/24 14:45 Pulse Ox 94 05/11/24 14:45 O2 Del Method Room Air 05/11/24 14:45 BMI result Body Mass Index 25.6 Vital signs were normal Exam: General: Patient was acutely intoxicated, she was belligerent, she was yelling at staff, she was threatening the police communications dispatcher that put her on a Section 12, to strong odor of alcohol on her breath Head: Normocephalic, atraumatic EENT: PERRL, Lids normal, sclera normal, conjunctiva normal, nose normal , ears normal, throat without erythema or exudates Neck: Supple, no adenopathy Lung: breath sounds symmetric, no wheezing, rales or rhonchi Chest: symmetric movement, nontender Heart: regular rate and rhythm, normal S1, S2 no murmurs or rubs Abdomen: soft, non-tender, nondistended, normal bowel sounds Back: no vertebral tenderness, no CVAT Extremities: no deformities, moves all extremities symmetrically Neuro: Awake, alert, oriented to person, slurred, pressured speech, cranial nerves intact, moves all extremities symmetrically Psych: Acutely intoxicated Medications Administered Discontinued Medications Generic Name Dose Route Start Last Admin Trade Name Freq PRN Reason Stop Dose Admin Diphenhydramine HCl 50 mg 05/11/24 13:35 05/11/24 13:45 Diphenhydramine Hcl 50 Mg/Ml Vial IM 05/11/24 13:36 50 mg ONCE ONE Administration Haloperidol Lactate 10 mg 05/11/24 13:35 05/11/24 13:45 Haloperidol Lactate 5 Mg/Ml Vial IM 05/11/24 13:36 10 mg STAT STA Administration Lorazepam 2 mg 05/11/24 13:35 05/11/24 13:45 Lorazepam 2 Mg/Ml Vial IM 05/11/24 13:36 2 mg STAT STA Administration Medical Decision Making Medical Decision Making MDM Narrative: 44-year-old female with a history of alcohol use disorder who was brought to emergency department on a Section 12 for acute alcohol intoxication depression, suicidal ideation and suicide attempt-the patient wrapped a extension cord around her neck and try to hang herself on the ceiling fan. Vital signs were normal. Physical examination was consistent with acute alcohol intoxication. Differential diagnosis: ?Includes but is not limited to suicidal ideation, depression, alcohol intoxication, polysubstance use, anemia, electrolyte abnormalities Patient was initially treated with the following: Haldol 10 mg IM, Ativan 2 mg IM, Benadryl 50 mg IM Course: 16:31 Start physician observation. My independent interpretation patient's laboratory in his following: H&H was normal. Elevated MCV of 101-most likely secondary malnutrition/alcohol use disorder. Potassium was low 2.7. CO2 low 20, sodium and chloride elevated 146 and 109 consistent with dehydration. Glucose was elevated 134. AST and ALT elevated 140 and 69. Ethanol level elevated 301. The patient had a good response to the chemical restraint and is currently resting comfortably. Patient's labs are consistent with her alcohol use disorder and dehydration. I did order potassium chloride 40 mEq orally and instructed the nurses to have the patient drink fluid when she wakes up. The patient will be placed in physician observation until she is sober enough to talk to care team. I also ordered CIWA scale q.4 hours while the patient is in the emergency department. Patient will remain in the emergency department Behavioral Health Unit until disposition can be determined or until patient's symptoms improve over time. At the end of my shift, patient's care was turned over to my colleague, Dr. Lizeth Noriega Admission/Observation Consideration of admission/observation: Escalation of care including admission/observation considered Lab Data MDM Lab Attestation statement: I reviewed the patient's lab results. 05/11/24 14:13 05/11/24 14:13 Labs: Lab Results 05/11/24 Range/Units 14:13 WBC 6.8 (4.8-10.8) X10*3/uL RBC 4.13 L (4.20-5.50) X10*6/uL Hgb 14.6 (12.0-16.0) g/dl Hct 41.7 (37.0-47.0) % MCV 101.0 H (80.0-98.0) fL MCH 35.4 H (27.0-33.0) pg MCHC 35.0 (31.0-35.0) g/dl RDW 13.3 (11.0-16.0) % Plt Count 330 D (160-400) X10*3/uL MPV 10.7 (9.4-12.3) fL Immature Gran % (Auto) 0.3 (0.0-0.4) % Neut % (Auto) 71.2 (45-73) % Lymph % (Auto) 21.3 (20-40) % [place] % (Auto) 5.1 (2-11) % Eos % (Auto) 0.6 (0-4) % Baso % (Auto) 1.5 (0-2) % Lymph # (Auto) 1.5 (1.2-4.9) X10*3/uL [place] # (Auto) 0.4 (0.1-1.2) X10*3/uL Eos # (Auto) 0.0 (0.0-0.4) X10*3/uL Baso # (Auto) 0.1 (0.0-0.2) X10*3/uL Abs Immat Gran (auto) 0.02 (0.00-0.03) X10*3/uL Absolute Neuts (auto) 4.9 (2.0-8.3) x10*3/uL Absolute Nucleated RBC 0.000 (0.0-0.012) X10*3/uL Nucleated RBC % (auto) 0.0 (0.0-0.2) /100WBC Sodium 146 H (135-145) mmol/L Potassium 2.7 L* D (3.3-5.1) mmol/L Chloride 109 H (96-108) mmol/L Carbon Dioxide 20 L (22-29) mmol/L Anion Gap 20 (12-20) BUN 6 L (9-16) mg/dL Creatinine 1.00 (0.5-1.4) mg/dL Estim Creat Clear Calc 63.5 Estimated GFR > 60 Random Glucose 134 H (60-115) mg/dL Calcium 9.5 (8.4-10.2) mg/dL Total Bilirubin 0.2 (0.0-1.0) mg/dL AST 140 H (5-31) U/L ALT 69 H (0-31) U/L Alkaline Phosphatase 71 (39-117) U/L Total Protein 7.1 (6.5-8.0) g/dL Albumin 4.4 (3.5-5.0) g/dL Ethyl Alcohol 301 H* mg/dL Independent Historian Clinical information obtained from an independent historian. History obtained from or confirmed by: EMS External Record Review Section 12 Discharge Plan Discharge Clinical Impression: Alcohol intoxication, Acute hypokalemia, Acute dehydration, Suicide gesture Patient Disposition: Still a Patient Prescriptions: No Action quetiapine 50 mg tablet 50 mg PO BEDTIME PRN (Reason: Insomnia) lisdexamfetamine [Vyvanse] 40 mg capsule 40 mg PO DAILY lisdexamfetamine [Vyvanse] 60 mg capsule 60 mg PO QAM Print Language: Andorran
[2024-05-11 13:45] VITALS: RESP 24
[2024-05-11] MEDS: Haloperidol Lactate 5 MG/ML VIAL 10 MG IM (13:45)
[2024-05-11] MEDS: diphenhydrAMINE HCL 50 MG/ML VIAL IM (13:45)
[2024-05-11] MEDS: LORazepam 2 MG/ML VIAL IM (13:45)
[2024-05-11 13:52] VITALS: BP 121/86; BP 160/92; PULSE 115; PULSE 142; RESP 18; TEMP 36.6; O2SAT 95; O2SAT 97; BMI 25.6
[2024-05-11 14:00] VITALS: RESP 20
[2024-05-11 14:15] VITALS: RESP 18
[2024-05-11 14:17] LABS: MANUAL DIFF FLAG NO
[2024-05-11 14:19] LABS: Basophils Absolute Auto 0.1 X10*3/uL (0.0-0.2); Basophils Percent Auto 1.5 % (0-2); Eosinophils Percent Auto 0.6 % (0-4); Hematocrit 41.7 % (37.0-47.0); Hemoglobin 14.6 g/dl (12.0-16.0); Imm Gran Abs Auto 0.02 X10*3/uL (0.00-0.03); Imm Gran Pct Auto 0.3 % (0.0-0.4); Lymphocytes Absolute Auto 1.5 X10*3/uL (1.2-4.9); Lymphocytes Percent Auto 21.3 % (20-40); Mean Corpuscular Hemoglobin 35.4 pg (27.0-33.0); Mean Platelet Volume 10.7 fL (9.4-12.3); Monocytes Absolute Auto 0.4 X10*3/uL (0.1-1.2); Monocytes Percent Auto 5.1 % (2-11); Neutrophils Absolute Auto 4.9 x10*3/uL (2.0-8.3); Neutrophils Percent Auto 71.2 % (45-73); Platelet Count 330 X10*3/uL (160-400); Red Blood Count 4.13 X10*6/uL (4.20-5.50); Red Cell Distribution Width 13.3 % (11.0-16.0); White Blood Count 6.8 X10*3/uL (4.8-10.8)
[2024-05-11 14:30] VITALS: RESP 18
[2024-05-11 14:35] LABS: Alanine Aminotransferase 69 U/L (0-31); Albumin Level 4.4 g/dL (3.5-5.0); Alkaline Phosphatase 71 U/L (39-117); Anion Gap 20 (12-20); Aspartate Amino Transferase 140 U/L (5-31); Bilirubin Total 0.2 mg/dL (0.0-1.0); Blood Urea Nitrogen 6 mg/dL (9-16); Calcium 9.5 mg/dL (8.4-10.2); Carbon Dioxide 20 mmol/L (22-29); Chloride 109 mmol/L (96-108); Creatinine Clr Calc Pharmacy 63.5; Estimated Glomerular Filt Rate > 60; Ethanol 301 mg/dL; Glucose Random 134 mg/dL (60-115); Sodium 146 mmol/L (135-145); Total Protein 7.1 g/dL (6.5-8.0)
[2024-05-11 14:36] LABS: Potassium 2.7 mmol/L (3.3-5.1)
[2024-05-11 14:45] VITALS: BP 104/61; PULSE 96; RESP 16; O2SAT 94
--- NOTE | 2024-05-11 16:59 | PC.NURSE ---
late note: pt arrived to ED very agitated, yelling, threatening staff, not compliant w change control analyst requests. pt medicated per DEC w physical hold for medication administration. security and PD at bedside. pt changed over w belongings secured in locker. per PD, pt found w cable wrapped around her neck attached to ceiling fan by her neighbour. ETOH - large amount of vodka consumed. section [address] pt agreeable to vitals and labs after medications administration. pt denies SI/HI, reports people are lying and trying to frame her. reports increased stressors d/t needing to move in 15 days, pt reports that she is trying to move [place] the country. pt pending urine sample, per provider medicate when pt wakes up and encourage PO fluid intake. plan for CARE team consult in am when clinically sober.
[2024-05-11] MEDS: Potassium Chloride Packet 20 MEQ PACKET 40 MEQ PO (18:47)
[2024-05-11 22:38] LABS: Appearance Urine Clear; Color Urine Yellow; Glucose Urine UA Negative (Negative); Leukocyte Esterase Urine Negative (Negative); Nitrite Urine Negative (Negative); PH 6.5 (5.0-9.0); Specific Gravity - Urine 1.025 (1.005-1.025); UMIC TRIGGER UACC YES; Urine Blood Trace (Negative); Urine Ketones Trace mg/dL (Negative); Urine Protein 30 (1+) mg/dL (Neg-Trace)
[2024-05-11 22:39] LABS: UPreg QC Valid YES; Urine Pregnancy NEGATIVE (NEGATIVE)
[2024-05-11 22:40] LABS: Bacteria Urine 2+ (None Seen); Hyaline Casts Urine 0-2 /LPF (0-2); WBC Urine 0-5 /HPF (0-5)
[2024-05-11 22:45] LABS: Amphetamine Screen Urine Not Detected (Not Detect); Barbiturates, Urine Not Detected (Not Detect); Benzodiazepines Screen Urine Not Detected (Not Detect); Buprenorphine Scr Not Detected (Not Detect); Cannabinoid Screen Urine POSITIVE (Not Detect); Cocaine Screen Urine POSITIVE (Not Detect); Fentanyl, urine Not Detected (Not Detect); Methadone Screen, Urine Not Detected (Not Detect); Opiate Screen Urine Not Detected (Not Detect); Oxycodone Screen Urine Not Detected (Not Detect); Phencyclidine Screen Urine Not Detected (Not Detect)
[2024-05-12] MEDS: Potassium Chloride Packet 20 MEQ PACKET 40 MEQ PO (02:53)
[2024-05-12 04:00] VITALS: BP 147/101; PULSE 90; RESP 16; TEMP 36.9; O2SAT 98
--- NOTE | 2024-05-12 05:54 | PC.NURSE ---
Patient is alert and oriented x3, cooperative with care. VSS. Patient denies any pain. Patient medicated with Potassium 40 meq PO, repeat BMP drawn and sent to lab.
--- NOTE | 2024-05-12 07:03 | PC.NURSE ---
Assumed care of patient at 0645, patient appears to be sleeping at this time, respirations even and unlabored, no apparent distress noted. Pending CARE team sonal
--- NOTE | 2024-05-12 10:13 | PC.NURSE ---
Pt visiting with daughters at this time, offering no complaints to this RN
[2024-05-12 11:30] LABS: Anion Gap 14 (12-20); Blood Urea Nitrogen 9 mg/dL (9-16); Calcium 10.3 mg/dL (8.4-10.2); Carbon Dioxide 26 mmol/L (22-29); Chloride 103 mmol/L (96-108); Creatinine Clr Calc Pharmacy 82.5; Estimated Glomerular Filt Rate > 60; Glucose Random 102 mg/dL (60-115); Potassium 4.1 mmol/L (3.3-5.1); Sodium 139 mmol/L (135-145)
--- NOTE | 2024-05-12 16:16 | P.CNPS_ITS ---
History of Present Illness Date of Service: 05/12/24 Chief Complaint: SECTION 12 ETOH, AGGRESION AND UNCOOPERTIVE Reason for Consult: assess need for inpt admission Discussed with referring provider: No Sources of Information: patient interviewed, chart reviewed and crisis/core team assessment reviewed HPI Narrative: Patient is a 44-year-old female with history of polysubstance abuse, PTSD who presents intoxicated with neighbor saying patient was planning to hang herself. When patient 1st arrived she was irritable and detoxing. Now patient is calm, organized in speech and behavior and wanting discharge. Patient adamantly denies any suicidality at all. She is future oriented, with plans to move to [place]. She denies daily alcohol intake, saying that when she drinks she binges hard but that it is only intermittent. Patient does not want any psychiatric medications, saying that she has not taken any and feels she nneka without them. What she wants is to get into another sober living environment which is her plan, in [place]. She does not want to go to the inpatient unit, does not want help with any kind of treatment but just wants to discharge. Care team got collateral from patient's family who are concerned about her substance abuse but are not overly concerned about self-harm. Discussed further with care team and narrative writer and social human services assistants agree that this is primarily substance abuse related and although patient may have been emotionally dysregulated the night before while intoxicated, this says since resolved and she is back to baseline. Past Psychiatric History: see care team note Medical Evaluation Reviewed: Yes PMFSH Medical History Alcohol use disorder Adjustment disorder with mixed disturbance of emotions and conduct in remission Insomnia ADHD Mood disorder Alcohol abuse Surgical History History of foot surgery History of hip surgery Diagnostics Vital Signs (24Hr): Vital Signs - 24 hr 05/12/24 04:00 Temperature 98.4 F Pulse Rate 90 Respiratory Rate 16 Blood Pressure 147/101 H Pulse Oximetry 98 Oxygen Delivery Method Room Air BMI result Body Mass Index 25.6 Labs 05/11/24 14:13 05/12/24 10:49 Labs: Laboratory Results - last 48 hr 05/11/24 05/11/24 05/12/24 14:13 22:24 10:49 WBC 6.8 RBC 4.13 L Hgb 14.6 Hct 41.7 MCV 101.0 H MCH 35.4 H MCHC 35.0 RDW 13.3 Plt Count 330 D MPV 10.7 Immature Gran % (Auto) 0.3 Neut % (Auto) 71.2 Lymph % (Auto) 21.3 [place] % (Auto) 5.1 Eos % (Auto) 0.6 Baso % (Auto) 1.5 Lymph # (Auto) 1.5 [place] # (Auto) 0.4 Eos # (Auto) 0.0 Baso # (Auto) 0.1 Abs Immat Gran (auto) 0.02 Absolute Neuts (auto) 4.9 Absolute Nucleated RBC 0.000 Nucleated RBC % (auto) 0.0 Sodium 146 H 139 Potassium 2.7 L* D 4.1 D Chloride 109 H 103 Carbon Dioxide 20 L 26 Anion Gap 20 14 BUN 6 L 9 Creatinine 1.00 0.77 Estim Creat Clear Calc 63.5 82.5 Estimated GFR > 60 > 60 Random Glucose 134 H 102 Calcium 9.5 10.3 H D Total Bilirubin 0.2 AST 140 H ALT 69 H Alkaline Phosphatase 71 Total Protein 7.1 Albumin 4.4 Urine Color Yellow Urine Appearance Clear Urine pH 6.5 Ur Specific [place] 1.025 Urine Protein 30 (1+) H Urine Glucose (UA) Negative Urine Ketones Trace Urine Blood Trace H Urine Nitrite Negative Ur Leukocyte Esterase Negative Urine RBC 3-5 H Urine WBC 0-5 Ur Squamous Epith Cells 3-5 Urine Bacteria 2+ Hyaline Casts 0-2 Urine Test NEGATIVE Urine Opiates Screen Not Detected Ur Buprenorphine Scrn Not Detected Ur Oxycodone Screen Not Detected Urine Methadone Screen Not Detected Urine Fentanyl Screen Not Detected Ur Barbiturates Screen Not Detected Ur Phencyclidine Scrn Not Detected Ur Amphetamines Screen Not Detected U Benzodiazepines Scrn Not Detected Urine Cocaine Screen POSITIVE H U Marijuana (THC) Screen POSITIVE H Ethyl Alcohol 301 H* Mental Status Exam Mental Status Exam Narrative: Pt is alert and oriented; behavior is cooperative and calm; patient is not in distress; dressed in hospital attire with unkempt hair; mood is described as fine and affect constricted; eye contact appropriate; Speech is normal rate, volume and prosody and not pressured; no psychomotor agitation/retardation present; thought process is organized and goal directed; Thought content is on discharge and getting things done for her move; otherwise pertinent to relevant topics and without any delusional content, paranoid ideations or grandiosity; denies any SI/HI. There is no evidence of perceptual disturbance. Patients insight and judgment are adequate. Medications Allergies Allergies Allergy/AdvReac Type Severity Reaction Status Date / Time No Known Allergies Allergy Verified 05/11/24 14:00 [No Known Allergies*] Assessment & Plan Assessment & Plan (1) Adjustment disorder with mixed disturbance of emotions and conduct in remission: Status: Acute Code(s): F43.25 - Adjustment disorder with mixed disturbance of emotions and conduct (2) Alcohol use disorder: Status: Acute Code(s): F10.90 - Alcohol use, unspecified, uncomplicated Plan Patient is a 44-year-old female with history of polysubstance abuse, PTSD who presents intoxicated with neighbor saying patient was planning to hang herself. When patient 1st arrived she was irritable and detoxing. Now patient is calm, organized in speech and behavior and wanting discharge. Patient adamantly denies any suicidality at all. She is future oriented, with plans to move to [place]. She denies daily alcohol intake, saying that when she drinks she binges hard but that it is only intermittent. Patient does not want any psychiatric medications, saying that she has not taken any and feels she nneka without them. What she wants is to get into another sober living environment which is her plan, in [place]. She does not want to go to the inpatient unit, does not want help with any kind of treatment but just wants to discharge. Care team got collateral from patient's family who are concerned about her substance abuse but are not overly concerned about self-harm. Discussed further with care team and narrative writer and social human services assistants agree that this is primarily substance abuse related and although patient may have been emotionally dysregulated the night before while intoxicated, this says since resolved and she is back to baseline. Denies any AVH. Pt will very likely continue to struggle with substance abuse and again become dysregulared; however this is a chronic struggle for her and a part of her baseline. And as she does not want treatment of any kind (psych, meds, substance, therapy), these chronic struggles will not resolve with inpatient admission. She is not in imminent risk for harm to self or others. She does not want treatment of any kind and does not meet criteria for involuntary admission. Pt's request for discharge honored. Total time managing care of this patient today ____ minutes. Patient educated on: diagnosis, medication risk/benefits and therapeutic strategies Informed Consent: understands
--- NOTE | 2024-05-12 16:16 | PC.NURSE ---
plan for discharge, awaiting D/C orders at this time
[2024-05-12 16:17] VITALS: BP 139/91; PULSE 86; RESP 16; TEMP 36.6; O2SAT 98
[2024-05-12 17:10] VITALS: BP 134/92; PULSE 74; RESP 16; TEMP 36.9; O2SAT 97
== END 2024-05-12 17:11 | disposition home or self-care (01) ==
PROVIDERS: Emergency Medicine Emergency Medical Services; Emergency Provider Emergency Medicine Emergency Medical Services; PCP Registered Nurse
DX: F10.129 Alcohol abuse with intoxication, unspecified (principal); Y90.8 Blood alcohol level of 240 mg/100 ml or more; E87.6 Hypokalemia; E86.0 Dehydration; F43.25 Adjustment disorder with mixed disturbance of emotions and conduct; R45.851 Suicidal ideations; X83.8XXA Intentional self-harm by other specified means, initial encounter; Y93.9 Activity, unspecified; Y92.9 Unspecified place or not applicable; Y99.9 Unspecified external cause status; Z04.6 Encounter for general psychiatric examination, requested by authority; Z65.3 Problems related to other legal circumstances; Z79.899 Other long term (current) drug therapy
CPT/HCPCS: 36415; 80048; 80053; 80307; 81001; 81025; 85025; 96372; 99284; 99285; J1200; J1630; J2060; S9485

== ENCOUNTER → 2024-05-11 14:11 | Outpatient (BNV) | payer MEDICAID, SELFPAY | PROVIDERS: Emergency Provider Emergency Medicine Emergency Medical Services; PCP Registered Nurse; Visit Provider Psychiatry & Neurology Psychiatry | DX: F43.25 Adjustment disorder with mixed disturbance of emotions and conduct (principal); F10.90 Alcohol use, unspecified, uncomplicated | CPT/HCPCS: 99283 ==

== ENCOUNTER 2024-05-18 17:14 | Emergency (ER) | payer MEDICAID, SELFPAY ==
[2024-05-18] VITALS (7 sets, daily range): BP systolic 86–160; BP diastolic 47–100; PULSE 84–104; RESP 12–24; TEMP 36.6–36.9; O2SAT 92–100; BMI 24.9
--- NOTE | 2024-05-18 17:25 | ED.ALCOHOL ---
HPI - Alcohol General Chief Complaint: ETOH/Substance Use Stated Complaint: ETOH,IN PD CUSTODY,RESTRAINED Time Seen by Provider: 05/18/24 17:17 Source: patient, EMS and police Mode of arrival: EMS Limitations: other (intoxication and agitation) History of Present Illness ED Provider: Dr. Montes HPI narrative: patient comes in restrained by police for aggressive behavior, threat to herself and others. Daughter called police because she was worried that her mom was intoxicated and threatening suicidal ideation. She has had prior suicide attempts in the past. patient is being evicted from her home in a few days complaint: alcohol intoxication Last drink: Just prior to admission Chronic alcohol use: Yes Previous visits for alcohol intoxication: Yes Associated symptoms: depression Related Data Home Medications ?Medication ?Instructions ?Recorded ?Confirmed lisdexamfetamine 40 mg capsule 40 mg PO DAILY 05/11/24 05/11/24 (Vyvanse) lisdexamfetamine 60 mg capsule 60 mg PO QAM 05/11/24 05/11/24 (Vyvanse) quetiapine 50 mg tablet 50 mg PO BEDTIME PRN Insomnia 05/11/24 05/11/24 Allergies Allergy/AdvReac Type Severity Reaction Status Date / Time No Known Allergies Allergy Verified 05/18/24 17:47 [No Known Allergies*] Review of Systems Review of Systems: Yes Unobtainable due to mental status Neurologic: Denies Sensory deficit (Neuro) [facility] Past Medical History Medical History Alcohol use disorder Adjustment disorder with mixed disturbance of emotions and conduct in remission Insomnia ADHD Mood disorder Alcohol abuse Surgical History History of foot surgery History of hip surgery Family History Family History Father Heart disease Paternal Grandfather Diabetes Social History Social History Household Members: None Housing: Apartment Do you presently have visiting nurse or other home services: No Unable to assess alcohol history related to: Refusing to respond Alcohol intake: current Alcohol intake frequency: 3 or more drinks per day Patient Tobacco Use Status: Current everyday Tobacco user Tobacco use type: Cigarette Cigarettes Per Day: 5 Years Smoked: 30 Substance Use Type: Crack/Cocaine and Marijuana Advance Directives: No Advance Directives Information Provided: No service: No Physical Exam ED Vital Signs: Vital Signs - 24 hr 05/18/24 17:36 05/18/24 17:45 05/18/24 18:00 Temperature 98 F Pulse Rate 99 Respiratory Rate 24 H 24 H 20 Blood Pressure 145/100 H Pulse Oximetry 95 Oxygen Delivery Method Room Air 05/18/24 18:15 05/18/24 18:30 05/18/24 20:54 Temperature 98.5 F Pulse Rate 104 H 93 84 Respiratory Rate 16 16 12 Blood Pressure 120/63 96/47 L 86/56 L Pulse Oximetry 100 92 96 Oxygen Delivery Method Room Air Room Air Room Air 05/18/24 21:07 Temperature Pulse Rate Respiratory Rate Blood Pressure 94/62 Pulse Oximetry Oxygen Delivery Method BMI result Body Mass Index 24.9 Const Other: female trying to hit staff and police, screaming, intoxicated Orientation/consciousness: oriented to person Limitations: altered mental status HENMT Head: Yes normal to inspection Ears: external ears normal General nose exam: Normal external nose present Mouth: Normal oral and palatal mucosa present and oropharynx normal Throat: Yes posterior oropharynx normal Eyes General: appearance normal, both eyes and all related structures Neck Neck: Yes normal visual inspection Chest Chest palpation & inspection: normal inspection of the chest Resp Auscultation: clear to auscultation bilaterally Cardio Jugular venous distension: no JVD Rate: regular rate Rhythm: regular rhythm Heart sounds: S1 normal heart sound present and S2 normal heart sound present GI Inspection: Yes normal to inspection Palpation (GI): Soft to palpation, nontender and No hepatosplenomegaly present Auscultation: normal bowel sounds General: Yes no CVA tenderness Back/Spine/Pelvis Back: no CVA tenderness Skin General skin exam: no rashes or lesions noted Neuro General: oriented to person Cranial nerves: Yes CN's II-XII intact bilaterally Motor exam (neuro): 5/5 motor strength present throughout Sensory Exam: No Sensory deficit (Neuro) Extrem General: Yes normal to inspection Psych Other: violent screaming Course Reevaluation(s) Reevaluation #1: Patient was aggressive trying to hurt staff so she needed to be chemically restrained. She will need to be reevaluated after she maurice up and wakes up Time: 21:24 Reevaluation #2: physician observation starting now as patient needs time to wake up and sober up and then be asked about her suicidal statements. Currently she is sleeping Time: 21:25 Reevaluation #3: I spent 40 minutes of critical care, with interventions, assessments, speaking to patient, consultants, and family. Time: 21:28 Medical Decision Making Differential Diagnosis Differential Diagnoses: The differential diagnosis associated with the presentation includes (alcohol intoxication, polysubstance abuse, suicidal ideation) Admission/Observation Consideration of admission/observation: Escalation of care including admission/observation considered (upon arrival patient was considered for admission) Lab Data 05/18/24 19:17 05/18/24 19:17 Labs: Lab Results 05/18/24 Range/Units 19:17 WBC 5.9 (4.8-10.8) X10*3/uL RBC 3.76 L (4.20-5.50) X10*6/uL Hgb 13.4 (12.0-16.0) g/dl Hct 38.3 (37.0-47.0) % MCV 101.9 H (80.0-98.0) fL MCH 35.6 H (27.0-33.0) pg MCHC 35.0 (31.0-35.0) g/dl RDW 13.5 (11.0-16.0) % Plt Count 316 (160-400) X10*3/uL MPV 10.1 (9.4-12.3) fL Immature Gran % (Auto) 0.5 H (0.0-0.4) % Neut % (Auto) 62.3 (45-73) % Lymph % (Auto) 28.6 (20-40) % [place] % (Auto) 6.1 (2-11) % Eos % (Auto) 0.8 (0-4) % Baso % (Auto) 1.7 (0-2) % Lymph # (Auto) 1.7 (1.2-4.9) X10*3/uL [place] # (Auto) 0.4 (0.1-1.2) X10*3/uL Eos # (Auto) 0.1 (0.0-0.4) X10*3/uL Baso # (Auto) 0.1 (0.0-0.2) X10*3/uL Abs Immat Gran (auto) 0.03 (0.00-0.03) X10*3/uL Absolute Neuts (auto) 3.7 (2.0-8.3) x10*3/uL Absolute Nucleated RBC 0.000 (0.0-0.012) X10*3/uL Nucleated RBC % (auto) 0.0 (0.0-0.2) /100WBC Sodium 146 H (135-145) mmol/L Potassium 3.1 L D (3.3-5.1) mmol/L Chloride 110 H (96-108) mmol/L Carbon Dioxide 22 (22-29) mmol/L Anion Gap 17 (12-20) BUN 8 L (9-16) mg/dL Creatinine 0.73 (0.5-1.4) mg/dL Estim Creat Clear Calc 92.7 Estimated GFR > 60 Random Glucose 83 (60-115) mg/dL Calcium 8.1 L D (8.4-10.2) mg/dL Ethyl Alcohol 336 H* mg/dL Independent Historian Clinical information obtained from an independent historian. History obtained from or confirmed by: EMS and Other (police) Chronic Conditions Patient?s care impacted by: Other (alcoholism, psychiatric disease) Social Determinants Patient?s care significantly limited by Social Determinants of Health including: Low income and Alcoholism and drug addiction in family Medications Administered Discontinued Medications Generic Name Dose Route Start Last Admin Trade Name Freq PRN Reason Stop Dose Admin Haloperidol Lactate 10 mg 05/18/24 17:22 05/18/24 17:45 Haloperidol Lactate 5 Mg/Ml Vial IM 05/18/24 17:23 10 mg STAT STA Administration Lorazepam 4 mg 05/18/24 17:22 05/18/24 17:45 Lorazepam 2 Mg/Ml Vial IM 05/18/24 17:23 4 mg STAT STA Administration Discharge Plan Discharge Clinical Impression: Alcoholic intoxication, Depression Patient Disposition: Still a Patient Prescriptions: No Action quetiapine 50 mg tablet 50 mg PO BEDTIME PRN (Reason: Insomnia) lisdexamfetamine [Vyvanse] 40 mg capsule 40 mg PO DAILY lisdexamfetamine [Vyvanse] 60 mg capsule 60 mg PO QAM Print Language: [place]
[2024-05-18] MEDS: Haloperidol Lactate 5 MG/ML VIAL 10 MG IM (17:45)
[2024-05-18] MEDS: LORazepam 2 MG/ML VIAL 4 MG IM (17:45)
--- NOTE | 2024-05-18 17:50 | PC.NURSE ---
pt attempting to leave the department, she was medicated as charted
[2024-05-18 19:21] LABS: MANUAL DIFF FLAG NO
[2024-05-18 19:23] LABS: Basophils Absolute Auto 0.1 X10*3/uL (0.0-0.2); Basophils Percent Auto 1.7 % (0-2); Eosinophils Absolute Auto 0.1 X10*3/uL (0.0-0.4); Eosinophils Percent Auto 0.8 % (0-4); Hematocrit 38.3 % (37.0-47.0); Hemoglobin 13.4 g/dl (12.0-16.0); Imm Gran Abs Auto 0.03 X10*3/uL (0.00-0.03); Imm Gran Pct Auto 0.5 % (0.0-0.4); Lymphocytes Absolute Auto 1.7 X10*3/uL (1.2-4.9); Lymphocytes Percent Auto 28.6 % (20-40); Mean Corpuscular Hemoglobin 35.6 pg (27.0-33.0); Mean Corpuscular Volume 101.9 fL (80.0-98.0); Mean Platelet Volume 10.1 fL (9.4-12.3); Monocytes Absolute Auto 0.4 X10*3/uL (0.1-1.2); Monocytes Percent Auto 6.1 % (2-11); Neutrophils Absolute Auto 3.7 x10*3/uL (2.0-8.3); Neutrophils Percent Auto 62.3 % (45-73); Platelet Count 316 X10*3/uL (160-400); Red Blood Count 3.76 X10*6/uL (4.20-5.50); Red Cell Distribution Width 13.5 % (11.0-16.0); White Blood Count 5.9 X10*3/uL (4.8-10.8)
[2024-05-18 19:41] LABS: Anion Gap 17 (12-20); Blood Urea Nitrogen 8 mg/dL (9-16); Calcium 8.1 mg/dL (8.4-10.2); Carbon Dioxide 22 mmol/L (22-29); Chloride 110 mmol/L (96-108); Creatinine Clr Calc Pharmacy 92.7; Estimated Glomerular Filt Rate > 60; Ethanol 336 mg/dL; Glucose Random 83 mg/dL (60-115); Potassium 3.1 mmol/L (3.3-5.1); Sodium 146 mmol/L (135-145)
--- NOTE | 2024-05-18 20:26 | PC.NURSE ---
Pt O2 sat dropping down to 66% pt turned over onto back and sat up in bed. O2 sat improved. to 98%. pt in bed eyes closd, respiration even and unlabored. Pt sat dropped again down in the 70% range. Pt placed on 4L NC with capnography in place between 36-39 02 sat 98%.
[2024-05-18 21:57] LABS: Amphetamine Screen Urine Not Detected (Not Detect); Barbiturates, Urine Not Detected (Not Detect); Benzodiazepines Screen Urine Not Detected (Not Detect); Buprenorphine Scr Not Detected (Not Detect); Cannabinoid Screen Urine POSITIVE (Not Detect); Cocaine Screen Urine POSITIVE (Not Detect); Fentanyl, urine Not Detected (Not Detect); Methadone Screen, Urine Not Detected (Not Detect); Opiate Screen Urine Not Detected (Not Detect); Oxycodone Screen Urine Not Detected (Not Detect); Phencyclidine Screen Urine Not Detected (Not Detect)
[2024-05-19 00:20] VITALS: O2SAT 92
[2024-05-19 02:42] VITALS: BP 118/91; PULSE 95; RESP 16; TEMP 36.6; O2SAT 94
--- NOTE | 2024-05-19 02:45 | PC.NURSE ---
pt is now axox4 speaking full clear sentences. pt continues to appear drowsy and falling asleep after conversation. pt denies si/hi at this time. pt in hospital clothes belongings locked up by security. pt reports alcohol use refuses to answer how much she drinks/how often. pt states she lives at home alone and unsure why daughter reported SI comments earlier in day. per MD 1:1 order, sitter at bedside. awaiting care team consult.
[2024-05-19 06:20] VITALS: RESP 17
--- NOTE | 2024-05-19 07:38 | PC.NURSE ---
report recieved from previous RN, patient resting comfortably on stretcher at this time respirations even and unlabored, meal tray order placed by this RN, patient awaiting care team radha pruitt remains at bedside for safety after patient made SI statements while intoxicated. all safety maintained at this time.
[2024-05-19 08:39] VITALS: BP 143/95; PULSE 101; RESP 16; TEMP 37.7; O2SAT 97
== END 2024-05-19 08:42 | disposition home or self-care (01) ==
PROVIDERS: Emergency Provider Emergency Medicine
DX: F10.129 Alcohol abuse with intoxication, unspecified (principal); Y90.8 Blood alcohol level of 240 mg/100 ml or more; F33.1 Major depressive disorder, recurrent, moderate; Z79.899 Other long term (current) drug therapy
CPT/HCPCS: 36415; 80048; 80307; 85025; 96372; 99285; J1630; J2060

== ENCOUNTER 2024-10-02 16:32 | Emergency (ER) | payer MEDICAID, SELFPAY ==
[2024-10-02] VITALS (9 sets, daily range): BP systolic 106–127; BP diastolic 55–83; PULSE 86–107; RESP 12–22; TEMP 36.2–36.4; O2SAT 78–100; BMI 21.3
[2024-10-02] MEDS: Haloperidol Lactate 5 MG/ML VIAL 10 MG IM (16:45)
[2024-10-02] MEDS: diphenhydrAMINE HCL 50 MG/ML VIAL IM (16:45)
[2024-10-02] MEDS: LORazepam 2 MG/ML VIAL IM (16:45)
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
[2024-10-02 18:28] LABS: MANUAL DIFF FLAG NO
[2024-10-02 18:38] LABS: INTERNATIONAL NORM RATIO 0.8 (0.9-1.1)
--- NOTE | 2024-10-02 18:40 | PC.NURSE ---
Patient titrated down to 2L, sats 99%
[2024-10-02 18:43] LABS: Acetaminophen LAB < 3 mcg/mL (<30); Salicylate < 5.0 mg/dL (15-30)
[2024-10-02 18:45] LABS: Basophils Absolute Auto 0.1 X10*3/uL (0.0-0.2); Basophils Percent Auto 1.7 % (0-2); Eosinophils Absolute Auto 0.1 X10*3/uL (0.0-0.4); Eosinophils Percent Auto 0.9 % (0-4); Hematocrit 42.1 % (37.0-47.0); Hemoglobin 14.5 g/dl (12.0-16.0); Imm Gran Abs Auto 0.03 X10*3/uL (0.00-0.03); Imm Gran Pct Auto 0.4 % (0.0-0.4); Lymphocytes Absolute Auto 2.3 X10*3/uL (1.2-4.9); Lymphocytes Percent Auto 30.5 % (20-40); Mean Corpuscular HGB Conc 34.4 g/dl (31.0-35.0); Mean Corpuscular Hemoglobin 33.6 pg (27.0-33.0); Mean Corpuscular Volume 97.7 fL (80.0-98.0); Monocytes Absolute Auto 0.3 X10*3/uL (0.1-1.2); Monocytes Percent Auto 3.8 % (2-11); Neutrophils Absolute Auto 4.8 x10*3/uL (2.0-8.3); Neutrophils Percent Auto 62.7 % (45-73); Platelet Count 402 X10*3/uL (160-400); Red Blood Count 4.31 X10*6/uL (4.20-5.50); Red Cell Distribution Width 12.5 % (11.0-16.0); White Blood Count 7.6 X10*3/uL (4.8-10.8)
[2024-10-02 18:56] LABS: Alanine Aminotransferase 62 U/L (0-31); Albumin Level 4.3 g/dL (3.5-5.0); Alkaline Phosphatase 87 U/L (39-117); Anion Gap 16 (12-20); Aspartate Amino Transferase 54 U/L (5-31); Bilirubin Total 0.1 mg/dL (0.0-1.0); Blood Urea Nitrogen 17 mg/dL (9-16); Carbon Dioxide 23 mmol/L (22-29); Chloride 112 mmol/L (96-108); Creatinine Clr Calc Pharmacy 70.6; Estimated Glomerular Filt Rate > 60; Ethanol 370 mg/dL; Glucose Random 96 mg/dL (60-115); Lipase 70 U/L (8-78); Magnesium 2.3 mg/dL (1.6-2.6); Potassium 3.7 mmol/L (3.3-5.1); Sodium 147 mmol/L (135-145); Total Protein 7.2 g/dL (6.5-8.0)
--- NOTE | 2024-10-02 19:10 | PC.NURSE ---
Late entry: De-Sat At approximately 1712, LO Humphrey alerted this RN that pt was de-satting down to the mid 70s on room air. This RN assessed patient, attempted to raise her head and open airway further, pts O2 saturation increased to mid 80s on room air. This RN contacted MD Pinzon and linking machine operator Ann at 1715, [place] at bedside to eval pt. Pt was promptly moved from BH 1 to ED 18 for medical monitoring. Report to SAMIRA Jansen
[2024-10-02] MEDS: Folic Acid 1 MG in 0.9 % Sodium Chloride 50 ML 100.4 MG IV (22:39)
[2024-10-02] MEDS: Lactated Ringers 1,000 ML 999 ML IV ×2 (22:39)
[2024-10-02 23:15] LABS: IDNOW Serial# 6674DD1D; Strep A Nucleic Acid Negative (Negative)
[2024-10-03 00:33] VITALS: BP 120/66; PULSE 100; RESP 13; TEMP 36.7; O2SAT 96
--- NOTE | 2024-10-03 02:58 | PC.NURSE ---
this rn assumed care of p @ 2330. pt continues to bend arm delaying infusion of IVF. pt continues to remove other wood processing machine operator and spo2 monitor. pt arrousable and awakes to name answerers questions appropriately
[2024-10-03 05:01] VITALS: BP 124/79; PULSE 94; RESP 18; TEMP 36.9; O2SAT 95
--- NOTE | 2024-10-03 05:40 | PC.NURSE ---
pt awake at this time. pt cooperative. states needs to use restroom urine sample obtained and sent to lab pt repositioned in bed provided with something to eat and water no new needs at this time pt denies SI/HI at this time pt awaiting disposition
[2024-10-03 05:48] LABS: Amphetamine Screen Urine Not Detected (Not Detect); Barbiturates, Urine Not Detected (Not Detect); Benzodiazepines Screen Urine Not Detected (Not Detect); Buprenorphine Scr Not Detected (Not Detect); Cannabinoid Screen Urine POSITIVE (Not Detect); Cocaine Screen Urine POSITIVE (Not Detect); Fentanyl, urine Not Detected (Not Detect); Methadone Screen, Urine Not Detected (Not Detect); Opiate Screen Urine Not Detected (Not Detect); Oxycodone Screen Urine Not Detected (Not Detect); Phencyclidine Screen Urine Not Detected (Not Detect)
[2024-10-03 07:12] VITALS: BP 120/65; PULSE 104; RESP 16; O2SAT 95
--- NOTE | 2024-10-03 08:14 | PC.NURSE ---
Pt awake, alert and oriented. Adamantly denies any SI or HI. Denies wanting help with addicting services. Breathing even and unlabored, calm and cooperative. Agreeable to leave whenever we feel she is ready per pt.
[2024-10-03 08:44] VITALS: BP 127/84; PULSE 111; RESP 16; O2SAT 96
[2024-10-03 08:46] VITALS: BP 127/84; PULSE 111; RESP 16; TEMP 36.9; O2SAT 96
== END 2024-10-03 08:47 | disposition home or self-care (01) ==
PROVIDERS: Emergency Medicine Emergency Medical Services; Emergency Provider Emergency Medicine
DX: F10.129 Alcohol abuse with intoxication, unspecified (principal); Y90.8 Blood alcohol level of 240 mg/100 ml or more; R45.6 Violent behavior; R09.02 Hypoxemia; F17.210 Nicotine dependence, cigarettes, uncomplicated; F14.90 Cocaine use, unspecified, uncomplicated; Z51.81 Encounter for therapeutic drug level monitoring; Z79.899 Other long term (current) drug therapy
CPT/HCPCS: 36415; 80053; 80143; 80179; 80307; 82550; 83690; 83735; 85025; 85610; 87651; 96361; 96372; 96374; 99285; J1200; J1630; J2060; J7120

== ENCOUNTER 2024-10-04 13:06 | Emergency (ER) | payer MEDICAID, SELFPAY ==
[2024-10-04 13:17] VITALS: BMI 27.5
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
--- NOTE | 2024-10-04 14:59 | PC.NURSE ---
Vitals unable to be obtained d/t patient having severe agitation when attempting to obtain
--- NOTE | 2024-10-04 15:30 | PC.NURSE ---
oob ambulating to bathroom independently.
--- NOTE | 2024-10-04 15:36 | PC.NURSE ---
Patient stood up from stretcher stating she was leaving, attempted to exit ED , this RN followed patient, patient stopped by doors stating she knows scuirty will eliane her and to please give her a shot in the arm. [facility] Security at bedside. Patient again requesting IM shot to her her calm down. Provider aware, patient brought to POD
--- NOTE | 2024-10-04 15:43 | PC.NURSE ---
Addendum entered by Neela Liang 10/04/24 15:55: holding off on the IM injections at this time Original Note: pt moved over to the pod pt is currently calm and cooperative/tearful
[2024-10-04 16:04] VITALS: BP 145/99; PULSE 120; RESP 20; TEMP 37.4; O2SAT 95
--- NOTE | 2024-10-04 16:31 | PC.NURSE ---
pt denies si at this time, but keeps saying that she would like to go to respite
--- NOTE | 2024-10-04 16:52 | ECG_ITS ---
Test Reason : tachycardia Blood Pressure : / mmHG Vent. Rate : 120 BPM Atrial Rate : 120 BPM P-R Int : 182 ms QRS Dur : 082 ms QT Int : 424 ms P-R-T Axes : 081 070 065 degrees QTc Int : 599 ms Poor data quality Sinus tachycardia Prolonged QT Abnormal ECG No previous ECGs available Referred By: Abelino Jensen Electronically Signed By:JOSE BAH MD
[2024-10-04] MEDS: LORazepam 1 MG TABLET PO ×2 (16:56→18:45)
[2024-10-04] MEDS: Ondansetron ODT 4 MG TAB.RAPDIS TRANSLINGU ×2 (16:56→18:45)
--- NOTE | 2024-10-04 16:57 | PC.NURSE ---
pt comes running out of her room screaming that there is something wrong with her heart vs checked and pt is tachy ranging in the 130's pt also nausea, attempting to shove hands down her throat to make herself vomit
[2024-10-04 16:59] VITALS: PULSE 135
[2024-10-04 18:43] VITALS: BP 111/73; PULSE 109; RESP 17; TEMP 36.3; O2SAT 93
[2024-10-04 19:25] LABS: Ethanol 164 mg/dL
[2024-10-04 21:00] VITALS: BP 85/55; PULSE 137; RESP 18; O2SAT 95
--- NOTE | 2024-10-04 21:02 | MHC.CARE ---
Received a call from Pt's daughter (Quita; [phone]) who reports that she is planning to do a section 35 the morning of 10/05/24.
[2024-10-04 21:06] VITALS: BP 111/71; PULSE 118; RESP 20; O2SAT 95
[2024-10-04 21:32] LABS: MANUAL DIFF FLAG NO
[2024-10-04] MEDS: 0.9 % Sodium Chloride 1,000 ML 999 ML IV (21:32)
[2024-10-04 21:35] LABS: Basophils Absolute Auto 0.1 X10*3/uL (0.0-0.2); Eosinophils Absolute Auto 0.1 X10*3/uL (0.0-0.4); Eosinophils Percent Auto 0.9 % (0-4); Hematocrit 39.9 % (37.0-47.0); Hemoglobin 14.3 g/dl (12.0-16.0); Imm Gran Abs Auto 0.01 X10*3/uL (0.00-0.03); Imm Gran Pct Auto 0.1 % (0.0-0.4); Lymphocytes Absolute Auto 2.4 X10*3/uL (1.2-4.9); Lymphocytes Percent Auto 30.8 % (20-40); Mean Corpuscular HGB Conc 35.8 g/dl (31.0-35.0); Mean Corpuscular Hemoglobin 33.9 pg (27.0-33.0); Mean Corpuscular Volume 94.5 fL (80.0-98.0); Monocytes Absolute Auto 0.4 X10*3/uL (0.1-1.2); Monocytes Percent Auto 4.8 % (2-11); Neutrophils Absolute Auto 4.9 x10*3/uL (2.0-8.3); Neutrophils Percent Auto 62.4 % (45-73); Platelet Count 354 X10*3/uL (160-400); Red Blood Count 4.22 X10*6/uL (4.20-5.50); Red Cell Distribution Width 12.2 % (11.0-16.0); White Blood Count 7.9 X10*3/uL (4.8-10.8)
[2024-10-04] MEDS: Thiamine HCL 200 MG in 0.9 % Sodium Chloride 100 ML 204 MG IV (21:35)
[2024-10-04] MEDS: Magnesium Sulfate/H2O 2 GM/50 ML PIGGYBACK IV (21:35)
[2024-10-04 21:56] LABS: Alanine Aminotransferase 41 U/L (0-31); Alkaline Phosphatase 97 U/L (39-117); Anion Gap 16 (12-20); Aspartate Amino Transferase 31 U/L (5-31); Bilirubin Direct 0.1 mg/dL (0.0-0.5); Bilirubin Total 0.3 mg/dL (0.0-1.0); Blood Urea Nitrogen 13 mg/dL (9-16); Calcium 9.9 mg/dL (8.4-10.2); Carbon Dioxide 25 mmol/L (22-29); Chloride 103 mmol/L (96-108); Creatinine Clr Calc Pharmacy 81.3; Estimated Glomerular Filt Rate > 60; Glucose Random 153 mg/dL (60-115); HCG Quantitative < 2 mIU/mL; Lipase 98 U/L (8-78); Magnesium 1.7 mg/dL (1.6-2.6); Potassium 3.3 mmol/L (3.3-5.1); Sodium 141 mmol/L (135-145); Total Protein 7.1 g/dL (6.5-8.0)
[2024-10-04] MEDS: Potassium Chloride ER 20 MEQ TAB.ER.PRT 40 MEQ PO (22:18)
[2024-10-04 23:02] VITALS: BP 97/52; PULSE 108; RESP 20; TEMP 37.1; O2SAT 94
--- NOTE | 2024-10-05 | ECG_ITS ---
Test Reason : QTC Blood Pressure : / mmHG Vent. Rate : 098 BPM Atrial Rate : 098 BPM P-R Int : 158 ms QRS Dur : 092 ms QT Int : 332 ms P-R-T Axes : 062 068 064 degrees QTc Int : 423 ms Normal sinus rhythm Septal infarct , age undetermined Abnormal ECG When compared with ECG of 04-OCT-2024 17:04, Septal infarct is now Present Nonspecific T wave abnormality no longer evident in Lateral leads Referred By: Georgie Ball Electronically Signed By:JOSE BAH MD
--- NOTE | 2024-10-05 03:23 | PC.NURSE ---
at around 0235 pt found to be sitting upright at the foot of her stretcher, requesting help and removing her telemetry leads. Upon RN arrival to bedside the patient reported a need to void, she was directed towards the bathroom and was observed to independently ambulate without physical assistance required and offered no complaints. Pt was able to get herself back into the bed and is resting comfortably
--- NOTE | 2024-10-05 03:34 | PC.NURSE ---
pt currently awake and alert, requesting a sleeping pill. RN and MD Ball were to bedside to discuss this as it is late into the night already. Pt reports taking seroquel 100mg at baseline however, due to the time is agreeable to receiving half of that dose as she is planning to go to respite. Pt remains calm and cooperative, denies SI/HI and is without distress
[2024-10-05] MEDS: QUEtiapine Fumarate 50 MG TABLET PO (04:13)
[2024-10-05 04:16] VITALS: BP 97/52; PULSE 90; RESP 16; TEMP 36.8; O2SAT 96
[2024-10-05 08:42] VITALS: BP 112/72; PULSE 85; RESP 17; TEMP 36.8; O2SAT 97
[2024-10-05 13:04] VITALS: BP 105/70; PULSE 80; RESP 14; TEMP 36.2
== END 2024-10-05 13:08 ==
PROVIDERS: Emergency Medicine; Emergency Provider Emergency Medicine
DX: F10.120 Alcohol abuse with intoxication, uncomplicated (principal); Y90.6 Blood alcohol level of 120-199 mg/100 ml; R45.1 Restlessness and agitation; R45.6 Violent behavior; F43.25 Adjustment disorder with mixed disturbance of emotions and conduct; F17.210 Nicotine dependence, cigarettes, uncomplicated; Z79.899 Other long term (current) drug therapy
CPT/HCPCS: 36415; 80048; 80076; 80307; 83690; 83735; 84702; 85025; 93005; 96374; 96375; 99285; J3411; J3475

== ENCOUNTER → 2024-10-04 16:52 | Outpatient (BNV) | payer MEDICAID, SELFPAY | PROVIDERS: Emergency Provider Emergency Medicine; Visit Provider Internal Medicine Cardiovascular Disease | DX: R00.0 Tachycardia, unspecified (principal) | CPT/HCPCS: 93010 ==

== ENCOUNTER → 2024-10-05 | Outpatient (BNV) | payer MEDICAID, SELFPAY | PROVIDERS: Emergency Provider Emergency Medicine; Visit Provider Internal Medicine Cardiovascular Disease | DX: I45.81 Long QT syndrome (principal) | CPT/HCPCS: 93010 ==

== ENCOUNTER 2024-11-23 15:42 | Outpatient (REF) | payer MEDICAID, SELFPAY ==
[2024-11-23 17:38] LABS: MANUAL DIFF FLAG NO
[2024-11-23 17:48] LABS: Basophils Absolute Auto 0.1 X10*3/uL (0.0-0.2); Basophils Percent Auto 0.6 % (0-2); Eosinophils Absolute Auto 0.2 X10*3/uL (0.0-0.4); Hemoglobin 13.2 g/dl (12.0-16.0); Imm Gran Abs Auto 0.02 X10*3/uL (0.00-0.03); Imm Gran Pct Auto 0.3 % (0.0-0.4); Lymphocytes Percent Auto 25.7 % (20-40); Mean Corpuscular HGB Conc 34.7 g/dl (31.0-35.0); Mean Corpuscular Hemoglobin 33.3 pg (27.0-33.0); Mean Platelet Volume 10.7 fL (9.4-12.3); Monocytes Absolute Auto 0.4 X10*3/uL (0.1-1.2); Monocytes Percent Auto 5.5 % (2-11); Neutrophils Absolute Auto 5.2 x10*3/uL (2.0-8.3); Neutrophils Percent Auto 64.9 % (45-73); Platelet Count 339 X10*3/uL (160-400); Red Blood Count 3.96 X10*6/uL (4.20-5.50); Red Cell Distribution Width 12.6 % (11.0-16.0); White Blood Count 7.9 X10*3/uL (4.8-10.8)
[2024-11-23 17:56] LABS: Anion Gap 12 (12-20); Blood Urea Nitrogen 15 mg/dL (9-16); Calcium 9.3 mg/dL (8.4-10.2); Carbon Dioxide 19 mmol/L (22-29); Chloride 110 mmol/L (96-108); Estimated Glomerular Filt Rate > 60; Potassium 3.8 mmol/L (3.3-5.1); Sodium 137 mmol/L (135-145)
--- OUTSIDE RECORDS SUMMARY | 2024-11-23 19:21 | XMS_ITS | Encounter Summary ---
Author Organization [employer] Address [address] [place] [address] [place] [address] Care Team Providers Care Patient Escort Name Role Phone Hannah Brothers Primary Care Provider [phone] Reason for Visit * Reason Onset Date Comments Medication Question 01/22/2023 Encounter Details Date Type Department Care Team ([facility] st Contact Info) Description 01/22/2023 Telephone [facility] [address] [place] [address] Hannah Brothers FNP [address] [place] [address] Medication Question Social History Tobacco Use Types Packs/Day Years Used Date Smoking Tobacco: Every Day Cigarettes Alcohol Use Standard Drinks/Week Comments Not Currently 0 (1 standard drink = 0.6 oz pur e alcohol) Depression Answer Date Recorded Patient Health Questionnaire-2 Score 0 10/09/2022 Comments Unknown Sex and Gender Information Value Date Recorded Sex Assigned at Female 08/24/2022 10:40 AM EDT Legal Sex Female 10:40 AM EDT Gender Identity Female 08/24/2022 10:40 AM EDT Sexual Orientation Straight 08/24/2022 10 :40 AM EDT documented as of this encounter Miscellaneous Notes * Telephone Encounter - Carin Sen - 01/22/2023 11:27 AM EDT Tc from pt requesting a New script antibiotics regarding dentist appt and she is required to get anti biotics before any dental procedure. Please contact pt at [phone] documented in this encounter Plan of Treatment Not on file documented as of this encounter Visit Diagnoses Not on filedocumented in this encounter Care Teams Patient Escort Relationship Specialty Start Date End Date Hannah Brothers FNP [address] [place] [phone] PCP - General Family Medicine 07/24/22 documented as of this encounter
--- OUTSIDE RECORDS SUMMARY | 2024-11-23 19:22 | XMS_ITS | Clinical Summary ---
Author Organization [employer] Address [address] [place] [address] [address] [place] [address] Care Team Providers Care Behavioral Health Consultant Name Role Phone Hannah Brothers Primary Care Provider [phone] Allergies No known active allergies Medications * This document contains information received from the source organization and may not represent a complete record from that organization. amphetamine-de xtroamphetamin e (Adderall) 10 MG tablet Take 1 tablet by mouth Once per day. 09/22/20 24 Active TEGretol-XR 200 MG 12 hr tablet Take 1 tablet by mouth at bedtime. 09/22/20 24 Active Vyvanse 60 MG capsule Take 1 capsule by mouth in the morning. 09/22/20 24 Active paliperidone (Invega) 6 MG 24 hr tablet Take 1 tablet by mouth in the morning. 05/24/20 24 Active topiramate 50 MG tablet Take 1 tablet by mouth at bedtime. 01/17/20 24 Active QUEtiapine (SEROquel) 100 MG tablet Take 1 tablet by mouth at bedtime. Active QUEtiapine (SEROquel) 100 MG tabletIndicati ons:Anxiety (in addition to 100mg at bedtime) 30 tablet 12/01/19 23 025 Discontinued(Me d list cleanup (will not trigger notification to Pharmacy)) hydrOXYzine HCl (Atarax) 25 MG tablet Take 1 tablet (25 mg) by mouth if needed at bedtime for itching. 30 tablet 3 08/26/20 23 025 Discontinued(Me d list cleanup (will not trigger notification to Pharmacy)) Vyvanse 50 MG capsule Take 50 mg by mouth in the morning. 10/28/19 24 025 Discontinued(Me d list cleanup (will not trigger notification to Pharmacy)) Active Problems Problem Noted Date Diagnosed Date Mood disorder 12/10/2023 Overview (12/10/2023): Following with psychiatrist Continues with the current regimen: Vyvanse 50mg daily Seroquel 100-150mg nightly PRN Routine health maintenance 10/11/2022 Overview (12/10/2023): Mammo: 11/08/23 BIRADS 1 Assessment & Plan (10/11/2022 6:03 PM EST): Breast CA: family hx of breast cancer in mother, MGM, and maternal aunt. Mammogram ordered 07/24/22. Cervical CA: Pt reports > 10 years since last screened, due. Encouraged to schedule appt. Colon CA: routine screening starting at 46 y/o per [facility] Optometry: discuss at f/u Dental: discuss at f/u COVID vaccine: reports completed, encouraged to bring card to update in chart Outstanding IZ: pr to bring previous records for reconciliation Alcohol intake above recommended sensible limits 07/24/2022 Assessment & Plan (10/11/2022 6:06 PM EST): -Recently discharged from [facility] in [place], [place] -Reports previous trial with vivitrol inj not effective -Currently rx antabuse through [facility] program and reports helpful. Interested in discussing continuing medication through [facility] CRS program. Spoke with CRS RN who will discuss if this is possibility with [facility] AUD clinic. -Pt to bring in records from [facility] program on 10/12/22, with updated med list. [facility] agreed to bridge until initial [facility] appt. Consider bridge through primary care if needed. -Pt in agreement with plan. Encounters * This document contains information received from the source organization and may not represent a complete record from that organization. Date Type Department Care Team Description 11/23/2024 2:45 PM EST Office Visit [facility] [address] [place] [address] Ravin Gibbs MD Mood disorder (CMS/HCC) (Primary Dx); Alcohol intake above recommended sensible limits 11/23/2024 Orders Only GENERIC EXTERNAL DATA DEPARTMENT Provider, Generic External Data 11/23/2024 Travel 11/22/2024 Telephone [facility] [address] [place] [address] aRvin Gibbs MD CHART PREP 11/22/2024 Telephone [facility] [address] [place] [address] Ravin Gibbs MD 11/10/2024 Telephone [facility] [address] [place] [address] Hannah Brothers FNP Transition Of Care (Tcm) (HDF- scheduled and SDOH screening unable to complete( Direct line call) ) 11/09/2024 Patient Outreach [facility] [address] [place] [address] Hannah Brothers FNP Transition Of Care (Tcm) 10/19/2024 Telephone [facility] [address] [place] [address] Hannah Brothers FNP October10/04/2024 Orders Only GENERIC EXTERNAL DATA DEPARTMENT Provider, Generic External Data 10/03/2024 Orders Only GENERIC EXTERNAL DATA DEPARTMENT Provider, Generic External Data 10/02/2024 Orders Only GENERIC EXTERNAL DATA DEPARTMENT Provider, Generic External Data 09/26/2024 Telephone [facility] [address] [place] [address] Hannah Brothers FNP 09/26/2024 Travel from Last 3 Months Immunizations Name Administration Dates Next Due Hep B, adult 12/22/2000,11/17/2000 Pfizer Covid-19 Vaccine 12+ 04/20/2021 Tdap 04/08/2009 Family History Medical History Relation Name Comments Breast cancer Maternal Grandmother Breast cancer Mother Breast cancer Mother's Sister Glomerulonephritis Sister thyroid disorder Sister Relation Name Status Comments Maternal Grandmother Mother Mother's Sister Sister Social History Tobacco Use Types Packs/Day Years Used Date Smoking Tobacco: Every Day Cigarettes Smokeless Tobacco: Former Tobacco Cessation:Ready to Q uit: Not Asked; Counseling Given: Not Answered Alcohol Use Standard Drinks/Week Comments Not Currently 0 (1 standard drink = 0.6 oz pur e alcohol) Housing Stability Answer Date Recorded What is your housing situation today? I have uday nelson 11/15/[address] you li ve. Do you have problems with any of the following? None of the above 11/15/2023 Food Insecurity Answer Date Recorded Within the past 12 months, y ou worried that your food would run out before you got money to buy more: Never True 11/15/2023 Within the past 12 months,th e food you bought just didn't last and you didn't have enough money to get more: Never True Transportation Answer Date Recorded In the past 12 months, has l ack of transportation kept you from medical appts, meetings, work or from getting things needed for daily living? No 11/15/2023 Utilities Answer Date Recorded In the past 12 months, has t he electric, gas, oil or water company threatened to shut off services in your home? Yes 11/15/2023 Depression Answer Date Recorded Patient Health Questionnaire-2 Score 0 10/09/2022 Comments Unknown Sex and Gender Information Value Date Recorded Sex Assigned at Female 08/24/2022 10:40 AM EDT Legal Sex Female 10:40 AM EDT Gender Identity Female 08/24/2022 10:40 AM EDT Sexual Orientation Straight 08/24/2022 10 :40 AM EDT Last Filed Vital Signs Vital Sign Reading Time Taken Comments Blood Pressure 148/102 11/23/2024 2:50 PM EST Pulse 89 11/23/2024 2:50 PM EST Temperature 36.4 ??C (97.5 ??F) 11/23/2024 2:50 PM ES T Respiratory Rate 18 11/23/2024 2:50 PM EST Oxygen Saturation 98% 11/23/2024 2:50 PM EST Inhaled Oxygen Concentration - - Weight 76.9 kg (169 lb 9.6 oz) 11/23/2024 2:50 P M EST Height 157.5 cm (5' 2 ) 11/23/2024 2:50 PM EST Body Mass Index 31.02 11/23/2024 2:50 PM EST Plan of Treatment Health Maintenance Due Date Last Done Comments Alcohol/Substance Use Screening 1993 Family Planning (PISQ) 1996 Pneumococcal Vaccine: Pediatrics (0 to 5 Years) and At-Risk Patients (6 to 49) Years) (1 of 2 - PCV) 2000 Hepatitis B Vaccines (3 of 3 - 19+ 3-dose series) 05/17/2001 12/22/2000, 11/17/2000 Pap Smear 2002 Cervical Cancer Screening 2011 HPV/Cotest 2011 DTaP/Tdap/Td Vaccines (2 - T d or Tdap) 04/08/2019 04/08/2009 Depression Screening 10/09/2023 10/09/2022, 10/09/2022 COVID-19 Vaccine (2 - 2023-2 5 season) 2024 04/20/2021 Influenza Vaccine (#1) 2024 Mammogram 11/08/2024 11/08/2023, 03/23/2023 SDOH Screening 11/15/2024 11/15/2023 Tobacco Screening 11/29/2024 11/29/2023 Lipid Panel 08/18/2027 08/18/2022 Zoster Vaccines (1 of 2) 2031 RSV Patients and Patients Aged 60 years or older (1 - 1-dose 75+ series) 2056 HIV Screening Completed 08/18/2022 Hepatitis C Screening Completed 08/18/2022 HIB Vaccines Aged Out No longer eligi ble based on patient's age to complete this topic HPV Vaccines Aged Out No longer eligi ble based on patient's age to complete this topic Hepatitis A Vaccines Aged Out No long er eligible based on patient's age to complete this topic IPV Vaccines Aged Out No longer eligi ble based on patient's age to complete this topic Meningococcal Vaccine Aged Out No zacarias james eligible based on patient's age to complete this topic RSV under 20 months Aged Out No longe r eligible based on patient's age to complete this topic Rotavirus Vaccines Aged Out No longer eligible based on patient's age to complete this topic Procedures Procedure Name Priority Date/Time Associated Diagnosis Comments ECG 12-LEAD Routine 11/23/2024 3:58 PM EST Mood disorder (CMS/HCC) Alcohol intake above recommended sensible limits CALCIUM Routine 11/23/2024 3:44 PM EST CREATININE, SERUM Routine 11/23/2024 3:4 4 PM EST UREA NITROGEN (BUN) Routine 11/23/2024 3 :44 PM EST ELECTROLYTE PANEL Routine 11/23/2024 3:4 4 PM EST CBC WITH AUTO DIFFERENTIAL Routine 11/23/2024 3:44 PM EST HCG, TOTAL, QN Routine 10/04/2024 9:28 PM EST LIPASE Routine 10/04/2024 9:28 PM EST MAGNESIUM Routine 10/04/2024 9:28 PM EST BASIC METABOLIC PANEL Routine 10/04/2024 9:28 PM EST HEPATIC FUNCTION PANEL Routine 9:28 PM EST CBC WITH AUTO DIFFERENTIAL Routine 10/04/2024 9:28 PM EST ETHANOL Routine 10/04/2024 6:51 PM EST DRUG MONITOR, PANEL 1, SCREEN, URINE Routine 10/03/2024 5:33 AM EST STREP A NUCLEIC ACID Routine 10/02/2024 10:59 PM EST BI MAMMOGRAM SCREENING TOMOSYNTHESIS BILATERAL Routine 11/08/2023 12:48 PM EST ZZZ HISTORICAL HEPATITIS C AB W/REFL TO HCV RNA, QN, PCR Routine 08/18/2022 11:04 AM EDT HIV 1/2 ANTIGEN/ANTIBODY, FOURTH GENERATION W/RFL Routine 08/18/2022 11:04 AM EDT LIPID PANEL, STANDARD Routine 08/18/2022 11:04 AM EDT from Last 3 Months or Most Recently Relevant to Health Maintenance Results * ECG 12 lead (11/23/2024 3:58 PM EST) Narrative Ravin Gibbs MD - 11/23/2024 3:58 PM EST Heart rate 88 bpm. ??[place] 0 degrees. ??QTc 397 ms. ??Sinus rhythm. ??No sign of left atrial enlargement/right atrial enlargement. ??No sign of hypertrophy. ??No ST-T segment elevation depression us Ravin Gibbs MD ECG ORDERABLES Final Resul t * Creatinine, Serum (11/23/2024 3:44 PM EST) Pathologist [facility] Creatinine, Serum 0.77 0.5 - 1.4 mg/dL [facility] Estimated Glomerular Filt Rate >60 [facility] Comment:Chronic Kidney Disea se: Estimated GFR < 60 mL/min/[id number] Kidney Disease: Estimated GFR < 15 mL/min/1.73m2 11/23/2024 3:44 PM EST 11/23/2024 5:34 PM EST us Generic External Data Provider LAB BLOOD ORDERAB LES Final Result [facility] [address] [place] [address] [phone] * (ABNORMAL) CBC auto differential (11/23/2024 3:44 PM EST) Only the most recent of2 resultswithin the time period is included. White Blood Count 7.9 4.8 - 10.8 X10*3/uL [facility] Red Blood Count 3.96(L) 4.20 - 5.50 X10*6/uL [facility] Hemoglobin 13.2 12.0 - 16.0 g/dl [facility] Hematocrit 38.0 37.0 - 47.0 % [facility] Mean Corpuscular Volume 96.0 80.0 - 98.0 fL [facility] Mean Corpuscular Hemoglobin 33.3(H) 27.0 - 33.0 pg [facility] Mean Corpuscular HGB Conc 34.7 31.0 - 35.0 g/dl [facility] Red Cell Distribution Width 12.6 11.0 - 16.0 % [facility] Platelet Count 339 160 - 400 X10*3/uL [facility] Mean Platelet Volume 10.7 9.4 - 12.3 fL [facility] Neutrophils Percent Auto 64.9 45 - 73 % [facility] Imm Gran Pct Auto 0.3 0.0 - 0.4 % [facility] Lymphocytes Percent Auto 25.7 20 - 40 % [facility] Monocytes Percent Auto 5.5 2 - 11 % [facility] Eosinophils Percent Auto 3.0 0 - 4 % [facility] Basophils Percent Auto 0.6 0 - 2 % [facility] NRBC Pct Auto 0.0 0.0 - 0.2 /100WBC [facility] Neutrophils Absolute Auto 5.2 2.0 - 8.3 x10*3/uL [facility] Imm Gran Abs Auto 0.02 0.00 - 0.03 X10*3/uL [facility] Lymphocytes Absolute Auto 2.0 1.2 - 4.9 X10*3/uL [facility] Monocytes Absolute Auto 0.4 0.1 - 1.2 X10*3/uL [facility] Eosinophils Absolute Auto 0.2 0.0 - 0.4 X10*3/uL [facility] Basophils Absolute Auto 0.1 0.0 - 0.2 X10*3/uL [facility] NRBC Abs Auto 0.000 0.0 - 0.012 X10*3/uL [facility] 11/23/2024 3:44 PM EST 11/23/2024 5:34 PM EST us Generic External Data Provider LAB BLOOD ORDERAB LES Final Result [facility] [address] [place] [phone] * BUN (Blood Urea Nitrogen) (11/23/2024 3:44 PM EST) Urea Nitrogen (BUN) 15 9 - 16 mg/dL [facility] 11/23/2024 3:44 PM EST 11/23/2024 5:34 PM EST us Generic External Data Provider LAB BLOOD ORDERAB LES Final Result Performing Organization Address City/[facility]/ZIP Co de Phone Number [facility] [address] [place] [address] [phone] * Calcium (11/23/2024 3:44 PM EST) Calcium 9.3 8.4 - 10.2 mg/dL [facility] 11/23/2024 3:44 PM EST 11/23/2024 5:34 PM EST us Generic External Data Provider LAB BLOOD ORDERAB LES Final Result Performing Organization Address [facility] Co de Phone Number [facility] [address] [place] [address] [phone] * (ABNORMAL) Electrolyte Panel (11/23/2024 3:44 PM EST) Sodium 137 135 - 145 mmol/L [facility] Potassium 3.8 3.3 - 5.1 mmol/L [facility] Chloride 110(H) 96 - 108 mmol/L [facility] Carbon Dioxide 19(L) 22 - 29 mmol/L [facility] Anion Gap 12 12 - 20 [facility] 11/23/2024 3:44 PM EST 11/23/2024 5:34 PM EST us Generic External Data Provider LAB BLOOD ORDERAB LES Final Result Performing Organization Address City/[facility]/ZIP Co de Phone Number [facility] [address] [place] [address] [phone] * hCG, Total, Quantitative (10/04/2024 9:28 PM EST) [facility] HCG Quantitative <2 mIU/mL [facility] Comment:Weeks post LMP Appro ximate hCG(Last Menstrual Period) Range (mIU/ml)3 - 4 weeks 9 - 1304 - 5 weeks 75 - 2,6005 - 6 weeks 850 - 20,8006 - 7 weeks 4000 - 100,2007 - 12 weeks 11,500 - 289,85463 - 16 weeks 18,300 - 137,07140 - 29 weeks (2nd trimester) 1,400 - 53,35019 - 41 weeks (3rd trimester) 940 - 60,000The Clark B- hCG assay is used for the early detection ofpregnancy; it cannot be used to diagnose any conditionunrelated to . If a B-hCG level is not supportedby the clinical evidence, results should be confirmed by analternative method (qualitative urine hCG, for example). 10/04/2024 9:28 PM EST 10/04/2024 9:31 PM EST us Generic External Data Provider LAB BLOOD ORDERAB LES Final Result Performing Organization Address City/[facility]/ZIP Co de Phone Number [facility] [address] [place] [address] [phone] * Magnesium (10/04/2024 9:28 PM EST) [facility] Magnesium 1.7 1.6 - 2.6 mg/dL [facility] 10/04/2024 9:28 PM EST 10/04/2024 9:31 PM EST Generic External Data Provider LAB BLOOD ORDERAB LES Final Result Performing Organization Address [facility]/ZIP Co de Phone Number [facility] [address] [place] [address] [phone] * (ABNORMAL) Lipase (10/04/2024 9:28 PM EST) [facility] Lipase 98(H) 8 - 78 U/L [facility] 10/04/2024 9:28 PM EST 10/04/2024 9:31 PM EST Generic External Data Provider LAB BLOOD ORDERAB LES Final Result Performing Organization Address [facility] Co de Phone Number [facility] [address] [place] [address] [phone] * (ABNORMAL) Hepatic Function Panel (10/04/2024 9:28 PM EST) [facility] Bilirubin, Total 0.3 0.0 - 1.0 mg/dL [facility] Bilirubin, Direct 0.1 0.0 - 0.5 mg/dL [facility] Aspartate Amino Transferase 31 5 - 31 U/L [facility] Alanine Aminotransferase 41(H) 0 - 31 U/L [facility] Total Protein 7.1 6.5 - 8.0 g/dL [facility] Albumin Level 4.0 3.5 - 5.0 g/dL [facility] Alkaline Phosphatase 97 39 - 117 U/L [facility] 10/04/2024 9:28 PM EST 10/04/2024 9:31 PM EST Generic External Data Provider LAB BLOOD ORDERAB LES Final Result Performing Organization Address City/[facility] Co de Phone Number [facility] [address] [place] [address] [phone] * (ABNORMAL) Basic Metabolic Panel (10/04/2024 9:28 PM EST) Pathologist [facility] Sodium 141 135 - 145 mmol/L [facility] Potassium 3.3 3.3 - 5.1 mmol/L [facility] Chloride 103 96 - 108 mmol/L [facility] Carbon Dioxide 25 22 - 29 mmol/L [facility] Anion Gap 16 12 - 20 [facility] Urea Nitrogen (BUN) 13 9 - 16 mg/dL [facility] Creatinine, Serum 0.87 0.5 - 1.4 mg/dL [facility] Creatinine Clr Calc Pharmacy 81.3 [facility] Comment:Provided height and weight: 162.56 cm,72.575 kg.eGFR (calculated from the MDRD study equation) and eCrCl(calculated from the Cockcroft-Gault equation) are based ondifferent parameters and may not yield comparable results.If eCrCl result is absurd, please check patient'sheight/weight. Estimated Glomerular Filt Rate >60 [facility] Comment:Chronic Kidney Disea se: Estimated GFR < 60 mL/min/1.67d5Cqwshx Kidney Disease: Estimated GFR < 15 mL/min/1.73m2 Glucose 153(H) 60 - 115 mg/dL [facility] Calcium 9.9 8.4 - 10.2 mg/dL [facility] 10/04/2024 9:28 PM EST 10/04/2024 9:31 PM EST us Generic External Data Provider LAB BLOOD ORDERAB LES Final Result Performing Organization Address City/[facility]/ZIP Co de Phone Number [facility] [address] [place] [address] [phone] * Ethanol (10/04/2024 6:51 PM EST) Pathologist [facility] ETHANOL (MG/DL) IN SER/PLAS 164 mg/dL [facility] Comment:Serum/plasma ethanol results are to be used formedical/treatment purposes only. 10/04/2024 6:51 PM EST 10/04/2024 6:55 PM EST Generic External Data Provider LAB BLOOD ORDERAB LES Final Result Performing Organization Address [facility]/ZIP Co de Phone Number [facility] [address] [place] [address] [phone] * (ABNORMAL) Drug Monitoring, Panel 1, Screen, Urine (10/03/2024 5:33 AM EST) Pathologist [facility] Opiate Screen Urine Not Detected Not Detect [facility] Comment:Opiate cut-off is 30 0 ng/mL.Positive results are unconfirmed and should not be used fornon-medical purposes. Barbiturates, Urine Not Detected Not Detect [facility] Comment:Barbiturate cut-off is 200 ng/mL.Positive results are unconfirmed and should not be used fornon-medical purposes. Phencyclidine Screen Urine Not Detected Not Detect [facility] Comment:Phencyclidine cut-of f is 25 ng/mL.Positive results are unconfirmed and should not be used fornon-medical purposes. Amphetamine Screen Urine Not Detected Not Detect [facility] Comment:Amphetamine cut-off is 1000 ng/mL.Positive results are unconfirmed and should not be used fornon-medical purposes. Benzodiazepines Screen Urine Not Detected Not Detect [facility] Comment:Benzodiazepine cut-o ff is 200 ng/mL.Positive results are unconfirmed and should not be used fornon-medical purposes. Cocaine Screen Urine POSITIVE(A) Not Detect [facility] Comment:Cocaine cut-off is 3 00 ng/mL.Positive results are unconfirmed and should not be used fornon-medical purposes. Cannabinoid Screen Urine POSITIVE(A) Not Detect [facility] Comment:Cannabinoid cut-off is 50 ng/mL.Positive results are unconfirmed and should not be used fornon-medical purposes. Methadone Screen, Urine Not Detected Not Detect ng/mL [facility] Comment:Methadone cut-off is 300 ng/mL.Positive results are unconfirmed and should not be used fornon-medical purposes. FENTANYL URINE Not Detected Not Detect [facility] Comment:Fentanyl cut-off is 1 ng/mL.Positive results are unconfirmed and should not be used fornon-medical purposes. Oxycodone Urine Screen Not Detected Not Detect ng/mL [facility] Comment:Oxycodone cut-off is 100 ng/mL.Positive results are unconfirmed and should not be used fornon-medical purposes. Buprenorphine Screen Not Detected Not Detect ng/mL [facility] Comment:Buprenorphine cut-of f is 5 ng/mL.Positive results are unconfirmed and should not be used fornon-medical purposes. 10/03/2024 5:33 AM EST 10/03/2024 5:35 AM EST Generic External Data Provider LAB URINE ORDERAB LES Final Result Performing Organization Address [facility] de Phone Number [facility] [address] [place] [phone] [phone] * Strep A Nucleic Acid (10/02/2024 10:59 PM EST) [employer] SERIAL# [id number] [facility] Strep A Nucleic Acid Negative Negative [facility] Comment:All test results mus t be correlated with clinical findings.This test has not been evaluated for monitoring treatment ofinfection.Additional follow-up testing using the culture method isrequired if the result is negative and clinical symptomspersist, or in the event of an acute rheumatic feveroutbreak. 10/02/2024 10:5 9 PM EST 10/02/2024 11:06 PM EST Generic External Data Provider LAB MICROBIOLOGY - GENERAL ORDERABLES Final Result Performing Organization Address [facility] Phone Number [facility] [address] [place] [address] [phone] * BI Mammogram Screening Tomosynthesis Bilateral (11/08/2023 12:48 PM EST) Anatomical Region Laterality Modality Breast Bilateral Mammography 11/08/2023 12:4 8 PM EST Narrative 11/26/2023 4:13 PM EST ? [facility] [place] ? [address] ?[place] [address] ? Mammography Report ? Signed ? Patient: Sadaf,Rachelle M ?MR#: [id number] ?? [id number] ? : 1980 ?Acct:[id number] ? Age/Sex: 43 / F ?ADM Date: 01/15/24 ? Loc: HO.MAMMO ? Attending Dr: Hannah TEJEDA ? Ordering Physician: Hannah Brothers ?Results: 1Negat ?? samantha ? Date of Service: 11/08/23 ?Follow Up: 1 Year From Orig ?? inal Mammogram ? Procedure(s): MM tomosynthesis screening BI ?? Accession Number(s): [id number] ? cc: Hannah Brothers WAREHOUSE TEAM MEMBER ? EXAMINATION: ?? MM SCREENING DIGITAL BREAST TOMOSYNTHESIS, BILATERAL ? CLINICAL INFORMATION: ? Screening. Asymptomatic. ? COMPARISON: ?? Mammography: This study is compared with prior exams dating back to ?? 2022. ? TECHNIQUE: ?? Digital breast tomosynthesis is performed in both the craniocaudal and ?? mediolateral oblique views along with computer-aided detection (CAD). ?? Synthesized 2D images are generated from the tomosynthesis. ? FINDINGS: ?? There are scattered areas of fibroglandular density (ACR BI-RADS breast ?? composition Category b). ? There are no significant masses, abnormal calcifications, or other ?? abnormalities. ? MM/MM tomosynthesis screening BI ?? IMPRESSION: ?? No mammographic evidence of malignancy. ? ASSESSMENT: ? BI-RADS BI-RADS 1 - Negative ? RECOMMENDATION: ?? Routine annual mammography screening. ? 1 year F/U ? This examination should not preclude the clinical evaluation of a ?? suspicious palpable abnormality. ? This patient's information was entered into a reminder system with a ?? target due date for their next mammogram. ? Dictated By: ?Ngoc Mas MD ? Signed By: ?<Electronically signed by Ngoc Mas MD in OV> ? 11/26/23 1609 ? DD/ 1248 ? TD/TT: ? Veterinary Dentist: ? Procedure Note Donotuseinterpreter, Image - 11/26/2023 [place] [facility] [address] [place] [address] Mammography Report Signed Patient: Rachelle Talavera MMR#: [id number] : 1980Acct:[id number] Age/Sex: 43 / FADM Date: 11/08/23 Loc: HO.MAMMO Attending Dr: Hannah Brothers WAREHOUSE TEAM MEMBER Ordering Physician: Hannah BrothersPResults: 1Negat samantha Date of Service: 11/08/23Follow Up: 1 Year From Orig inal Mammogram Procedure(s): MM tomosynthesis screening BI Accession Number(s): [id number] cc: Hannah Brothers EXAMINATION: MM SCREENING DIGITAL BREAST TOMOSYNTHESIS, BILATERAL CLINICAL INFORMATION: Screening. Asymptomatic. COMPARISON: Mammography: This study is compared with prior exams dating back to 2022. TECHNIQUE: Digital breast tomosynthesis is performed in both the craniocaudal and mediolateral oblique views along with computer-aided detection (CAD). Synthesized 2D images are generated from the tomosynthesis. FINDINGS: There are scattered areas of fibroglandular density (ACR BI-RADS breast composition Category b). There are no significant masses, abnormal calcifications, or other abnormalities. MM/MM tomosynthesis screening BI IMPRESSION: No mammographic evidence of malignancy. ASSESSMENT: BI-RADS BI-RADS 1 - Negative RECOMMENDATION: Routine annual mammography screening. 1 year F/U This examination should not preclude the clinical evaluation of a suspicious palpable abnormality. This patient's information was entered into a reminder system with a target due date for their next mammogram. Dictated By: Ngoc Mas MD Signed By: <Electronically signed by Ngoc Mas MD in OV> 11/26/23 1609 DD/ 1248 TD/TT: Veterinary Dentist: us Hannah Brothers [facility] IMG BI PROCEDURES Final Result * HEPATITIS C AB W/REFL TO HCV RNA, QN, PCR (08/18/2022 11:04 AM EDT) HEPATITIS C ANTIBODY NON-REACTI VE NON-REACT SAMANTHA CONVERTED LEGACY LABS INDEX 0.12 <1.00 CONVERTED LEGACY LABS Comment: ?? HCV antibody was non-reactive. There is no laboratory ?? evidence of HCV infection. ?? In most cases, no further action is required. However, if recent HCV exposure is suspected, a test for HCV RNA (test code 08633) is suggested. ?? For additional information please refer to http://Ossia/faq/GGX87g7 (This link is being provided for informational/ educational purposes only.) ?? 08/18/2022 11:0 4 AM EDT Hannah Brothers [facility] HISTORICAL/NON ORDERABLE LABS Final Result CONVERTED LEGACY LABS * HIV 1/2 ANTIGEN/ANTIBODY,FOURTH GENERATION W/RFL (08/18/2022 11:04 AM EDT) HIV-1/2 ANTIGEN AND ANTIBODIES, 4TH GENERATION W/ REFLEX NON-REACT SAMANTHA NON-REACT SAMANTHA CONVERTED LEGACY LABS Comment: HIV-1 antigen and HIV-1/HIV-2 antibodies were not detected. There is no laboratory evidence of HIV infection. ?? PLEASE NOTE: This information has been disclosed to you from records whose confidentiality may be protected by state law. ??If your state requires such protection, then the state law prohibits you from making any further disclosure of the information without the specific written consent of the person to whom it pertains, or as otherwise permitted by law. A general authorization for the release of medical or other information is NOT sufficient for this purpose. ? For additional information please refer to http://BigDoor.Aconex/faq/PCZ467 (This link is being provided for informational/ educational purposes only.) ? The performance of this assay has not been clinically validated in patients less than 2 years old. ?? 08/18/2022 11:0 4 AM EDT Hannah Sandovalflaco [facility] LAB BLOOD ORDERABLES Final Res ult CONVERTED LEGACY LABS * (ABNORMAL) LIPID PANEL, STANDARD (08/18/2022 11:04 AM EDT) Chol/HDLC Ratio 4.2 <5.0 (calc) CONVERTED LEGACY LABS Cholesterol, Total 200(H) <200 mg/dL CONVERTED LEGACY LABS HDL Cholesterol 48(L) > OR = 50 mg/dL CONVERTED LEGACY LABS LDL Cholesterol 120(H) mg/dL (calc) CONVERTED LEGACY LABS Comment: Reference range: <100 ?? Desirable range <100 mg/dL for primary prevention; ?? <70 mg/dL for patients with CHD or diabetic patients ?? with > or = 2 CHD risk factors. ?? LDL-C is now calculated using the Shashank-Isaacs ?? calculation, which is a validated novel method providing ?? better accuracy than the Friedewald equation in the ?? estimation of LDL-C. ?? Shashank SANFORD et al. DINA. 2013;310(19): 1023-0352 ?? (http://education.Memeoirs.[employer]/faq/PMV900) Non-HDL Cholesterol 152(H) <130 mg/dL (calc) CONVERTED LEGACY LABS Comment: For patients with diabetes plus 1 major ASCVD risk ?? factor, treating to a non-HDL-C goal of <100 mg/dL ?? (LDL-C of <70 mg/dL) is considered a therapeutic ?? option. Triglycerides 208(H) <150 mg/dL CONVE RTED LEGACY LABS Comment: ?? If a non-fasting specimen was collected, consider repeat triglyceride testing on a fasting specimen if clinically indicated. ?? Stephanie et al. J. of Clin. Lipidol. 2015;9:129-169. ?? 08/18/2022 11:0 4 AM EDT us Hannah TEJEDA LAB BLOOD ORDERABLES Final Res ult CONVERTED LEGACY LABS from Last 3 Months or Most Recently Relevant to Health Maintenance Insurance [facility] C3 Care Teams Behavioral Health Consultant Relationship Specialty Start Date End Date Hannah Brothers FNP [address] [place] [address] PCP - General Family Medicine 07/24/22
--- OUTSIDE RECORDS SUMMARY | 2024-11-23 19:22 | XMS_ITS | Encounter Summary ---
Author Organization [employer] Address [address] [place] [address] 7 [place] [address] Care Team Providers Care Java Portal Developer Name Role Phone Hannah Brothers Primary Care Provider [phone] Reason for Visit * Reason Comments Transition Of Care (Tcm) HDF- scheduled and SDOH screening unable to complete( Direct line call) Encounter Details Date Type Department Care Team ([facility] Contact Info) Description 11/10/2024 Telephone [facility] MED & PEDS [address] [place], [place] [phone] Hannah Brothers FNP [address] [place], [place] [phone] Transition Of Care (Tcm) (HDF- scheduled and SDOH screening unable to complete( Direct line call) ) Social History Tobacco Use Types Packs/Day Years Used Date Smoking Tobacco: Every Day Cigarettes Smokeless Tobacco: Former Alcohol Use Standard Drinks/Week Comments Not Currently [...] as of this encounter Miscellaneous Notes * Significant Event - Betty Evans - 11/10/2024 3:15 PM EST 11/10/24 1514 Hospital Discharges and Admission for [facility] Type of Visit Hospital Admission Date of Admission/Visit 10/05/24 Date of Discharge 11/16/24 Facility [facility]) Diagnosis Substance use disorder Disposition Admitted Follow-Up Actions Follow-Up Needed Provider appointment Follow-Up Outcome Spoke to Caregiver;Booked Appointment Initial Contact Date 11/10/24 Received incoming call from the Direct Hospital Line. MONSE Spoke with Jeison from [facility]) [phone] and fax number is [phone]. Patient has been scheduled for an HDF appointment on 11/23/2024 at 2:45PM with Dr. Gibbs. MONSE requested discharge summaries to be faxed to the Care Management Department at [phone]. CC will follow up on discharge summary following patient's discharge. Insurance verified prior to scheduling. documented in this encounter Plan of Treatment Not on file documented as of this encounter Visit Diagnoses Not on filedocumented in this encounter Care Teams Java Portal Developer Relationship Specialty Start Date End Date Hannah Brothers FNP [address] [place] [address] PCP - General Family Medicine 07/24/22 documented as of this encounter
--- OUTSIDE RECORDS SUMMARY | 2024-11-23 19:22 | XMS_ITS | Encounter Summary ---
Author Organization [employer] Address [address] [place] [address] Care Team Providers Care Research And Evaluation Manager Name Role Phone Saud Brothersle NIKHIL Primary Care Provider [phone] Reason for Visit * Reason Onset Date Comments CHART PREP 11/22/2024 Encounter Details Date Type Department Care Team ([facility] Contact Info) Description 11/22/2024 Telephone [facility] MED & PEDS [address] [place], [place] [phone] Ravin Gibbs MD [address] [place] [address] CHART PREP Social History Tobacco Use Types Packs/Day Years Used Date Smoking Tobacco: Every Day Cigarettes Smokeless Tobacco: Former Alcohol Use Standard Drinks/Week Comments Not Currently 0 (1 standard drink = 0.6 oz pur e alcohol) Housing Stability Answer Date Recorded What is your housing situation today? I have uday leslie 11/15/[address] you li [...] encounter Miscellaneous Notes * Telephone Encounter - Cecy Alfaro [place] - 11/22/2024 11:48 AM EST Chart Prep Labs: done Images: done Vaccines due: yes Referrals: complete Screenings: mammogram , pap smear Overdue care gaps: Sbirt, SDOH, PHQ-9 documented in this encounter Plan of Treatment Not on file documented as of this encounter Visit Diagnoses Not on filedocumented in this encounter Care Teams Research And Evaluation Manager Relationship Specialty Start Date End Date Hannah Brothers FNP [address] [place] [address] PCP - General Family Medicine 07/24/22 documented as of this encounter
--- OUTSIDE RECORDS SUMMARY | 2024-11-23 19:22 | XMS_ITS | Encounter Summary ---
Author Organization [email or web address] Address [address] [place] [address] 7 [place] [address] Care Team Providers Care Internet Systems Administrator Name Role Phone Hannah Brothers Primary Care Provider [phone] Encounter Details Date Type Department Care Team ([facility] Contact Info) Description 11/22/2024 Telephone [facility] CHC MED & PEDS [address] [place], [place] [phone] Ravin Gibbs MD [address] [place] [address] Social History Tobacco Use Types Packs/Day Years [...] the past 12 months, has t he [employer], [employer], oil or water company threatened to shut [...] AM EDT documented as of this encounter Plan of Treatment Not on file documented as of this encounter Visit Diagnoses Not on filedocumented in this encounter Care Teams Internet Systems Administrator Relationship Specialty Start Date End Date Hannah Brothers FNP [address] [place] [address] PCP - General Family Medicine 07/24/22 documented as of this encounter
--- OUTSIDE RECORDS SUMMARY | 2024-11-23 19:22 | XMS_ITS | Encounter Summary ---
Author Organization [employer] Address [address] [facility] [address] [place] [address] Care Team Providers Care Job Estimator Name Role Phone JaimeHannah sam NIKHIL Primary Care Provider [phone] Encounter Details Date Type Department Care Team (Latest Contact Info) Description 11/23/2024 Travel Social History Tobacco Use Types Packs/Day Years Used Date Smoking Tobacco: Every Day Cigarettes Smokeless Tobacco: Former Alcohol Use Standard Drinks/Week Comments Not Currently 0 (1 standard drink = 0.6 oz pur e alcohol) Housing Stability Answer Date Recorded What is your housing situation today? I have uday sing 11/15/[address] you li [...] on filedocumented in this encounter Care Teams Job Estimator Relationship Specialty Start Date End Date Hannah Brothers FNP [address] [place] [phone] PCP - General Family Medicine 07/24/22 documented as of this encounter
--- OUTSIDE RECORDS SUMMARY | 2024-11-23 19:22 | XMS_ITS | Encounter Summary ---
Author Organization [employer] Address [address] [place] [address] 7t [place] [address] Care Team Providers Care Payroll And Benefits Assistant Name Role Phone Hannah Brothers Primary Care Provider [phone] Encounter Details Date Type Department Care Team (Late st Contact Info) Description 12/07/2022 Telephone [facility] MEDICINE [address] [place] [address] Hannah Brothers FNP [address] [place], [place] [phone] Social History Tobacco Use Types Packs/Day Years [...] encounter Miscellaneous Notes * Telephone Encounter - Elidia Manrique RN - 12/07/2022 12:53 PM EST Spoke with financial sales manager regarding issue and air traffic control manager spoke with pt on 12/04/22 regarding issue. * Telephone Encounter - Lakeshia Ordonez LPN - 12/07/2022 8:40 AM EST Critical result call on line this morning. Patient left message on 12/04/22 @ 5:30pm. Patient looking to get a RX for Amoxicillin for Dental work from provider. Patient yelling, and agitated on voice mail. Team tasked to address with PCP Angel TEJEDA and patient. documented in this encounter Plan of Treatment Not on file documented as of this encounter Visit Diagnoses Not on filedocumented in this encounter Care Teams Payroll And Benefits Assistant Relationship Specialty Start Date End Date Hannah Brothers FNP [address] [place] [address] PCP - General Family Medicine 07/24/22 documented as of this encounter
--- OUTSIDE RECORDS SUMMARY | 2024-11-23 19:22 | XMS_ITS | Encounter Summary ---
Author Organization [employer] Address [address] [place] [address] [address] [place] [address] Care Team Providers Care Fishing Reel Assembler Name Role Phone Hannah Brothers Primary Care Provider [phone] Reason for Visit * Reason Comments Transition Of Care (Tcm) Encounter Details Date Type Department Care Team ([facility] Contact Info) Description 11/09/2024 Patient Outreach [facility] MED & PEDS [address] [place], [place] [phone] Hannah Brothers FNP [address] [place], [place] [phone] Transition Of Care (Tcm) Social History Tobacco Use Types Packs/Day Years [...] AM EDT documented as of this encounter Progress Notes * Christina Collier RN - 11/09/2024 8:49 AM EST 11/09/24 0849 Hospital Discharges and Admission for [facility] Type of Visit Emergency Department Date of Admission/Visit 11/08/24 Date of Discharge 11/08/24 [place], [place] Diagnosis Palpitations Disposition Discharged Home documented in this encounter Plan of Treatment Not on file documented as of this encounter Visit Diagnoses Not on filedocumented in this encounter Care Teams Fishing Reel Assembler Relationship Specialty Start Date End Date Hannah Brothers FNP [address] [place] [address] PCP - General Family Medicine 07/24/22 documented as of this encounter
--- OUTSIDE RECORDS SUMMARY | 2024-11-23 19:22 | XMS_ITS | Encounter Summary ---
Author Organization [employer] Address [address] [place] [address] 7 [place] [address] Care Team Providers Care Topographic Computator Name Role Phone Hannah Brothers Primary Care Provider [phone] Reason for Visit * Reason Onset Date Comments Med Refill 10/23/2022 Encounter Details Date Type Department Care Team ([facility] st Contact Info) Description 10/23/2022 Telephone [facility] MEDICINE [address] [place] [address] Hannah Brothers FNP [address] [place], [place] [phone] Med Refill Social History Tobacco Use Types Packs/Day Years Used Date Smoking Tobacco: Every Day Cigarettes Alcohol Use Standard Drinks/Week Comments Not Currently 0 (1 standard drink = 0.6 oz pur e alcohol) Housing Stability Answer Date Recorded What is your housing situation today? I have udaymariza nelson 11/15/[address] you [...] t he electric, gas, oil or water [employer] threatened to shut off services in your home? Yes 11/15/2023 Depression Answer Date Recorded Patient Health Questionnaire-2 Score 0 10/09/2022 Comments Unknown Sex and Gender Information Value Date Recorded Sex Assigned at Female 08/24/2022 10:40 AM EDT Legal Sex Female 10:40 AM EDT Gender Identity Female 08/24/2022 10:40 AM EDT Sexual Orientation Straight 08/24/2022 10 :40 AM EDT COVID-19 Exposure Response Date Recorded In the last 10 days, have yo u been in contact with someone who was confirmed or suspected to have Coronavirus/COVID-19? No / Unsure 03/23/2023 10:15 AM EDT documented as of this encounter Miscellaneous Notes * Telephone Encounter - Ruthann Gardner - 10/29/2022 2:04 PM EST Tc from pt requesting a call back with status on script for Antibuse and Seroquel. Please see notesbelow. PCP MERCEDES Brothers * Telephone Encounter - Tiffanie Martin RN - 10/28/2022 10:55 AM EST T/C placed to pt. Advised pt of message from pcp re: Vyvanse. States that she has received Vyvanse rx. States that she was in [place] on 10/22/22 and her psych appt is scheduled for 11/22/22. Pt is requesting rx for Antibuse (states does not know dosage) and Seroquel 100mg daily at hs. States that she also usually has Seroquel 200mg prn but isn't sure if pcp will rx. Advised request will be sent to pcp. * Telephone Encounter - NIKHIL Burr - 10/24/2022 9:20 AM EST [place], [place] prescription of Vyvanse was for pt until established with psych prescriber on 10/22/22 - with plan for them to continue both of the medications requested in TC. Please call patient to see if she made that appointment. plan was for [facility] team to take over meds starting 10/22/22. Hannah Henderson * Telephone Encounter - Javierluis Long - 10/23/2022 2:53 PM EST Tc from pt requesting a med refill for vyvanse and Seroquel. Please contact at [phone] documented in this encounter Plan of Treatment Not on file documented as of this encounter Visit Diagnoses Not on filedocumented in this encounter Care Teams Topographic Computator Relationship Specialty Start Date End Date Hannah Brothers FNP [address] [place] [phone] PCP - General Family Medicine 07/24/22 documented as of this encounter
--- OUTSIDE RECORDS SUMMARY | 2024-11-23 19:22 | XMS_ITS | Encounter Summary ---
Author Organization [employer] Address [address] [place] [address] [place] [address] Care Team Providers Care Commissary Agent Name Role Phone Saud Brothersle NIKHIL Primary Care Provider [phone] Encounter Details Date Type Department Care Team ([facility] Contact Info) Description 11/23/2024 2:45 PM EST Office Visit [facility] [address], [place] [phone] Ravin Gibbs MD [address] [place], [place] [phone] Mood disorder (CMS/HCC) (Primary Dx); Alcohol intake above recommended sensible limits Social History Tobacco Use Types Packs/Day Years [...] AM EDT documented as of this encounter Last Filed Vital Signs Vital Sign Reading [...] Mass Index 31.02 11/23/2024 2:50 PM EST documented in this encounter Progress Notes * Ravin Gibbs MD - 11/23/2024 2:45 PM EST Subjective Patient ID: Rachelle Talavera is a 44 y.o. female who presents for No chief complaint on file.. HPI 2 recent hospitalization: First hospitalization at [facility] from October 04 to October 05, 2024. Patient was brought to the emergency department for evaluation of alcohol intoxication with violent behavior andacute agitation. Started on Haldol, Benadryl, added Ativan for agitation. Labs showed dehydration. Patient was started on IV fluid, folic acid and discharged to court mandated rehab. Second hospitalization at [facility] from November 09 to November 10, 2023. Patient was brought in because of manic behavior with pressured speech. Tested positive for cannabinoids and cocaine. Given Haldol and lorazepam. Imaging studies unremarkable. Diagnosed with anion gap metabolic acidosis and acute kidney injury treated with IV fluids. Nephrology consulted and concluded that the acute kidney injury was most likely secondary to renal hypoperfusion and overuse of NSAIDs. Patient left the hospital AGAINST MEDICAL ADVICE to go home. Patient was at the [facility] from October 05 of October 16 2025 for treatmentof alcohol use disorder on his severe commitment/section 35. Maintained on home medications: Antabuse, propranolol, Seroquel. Vyvanse and Adderall were discontinued on 11/08/2024, while patient was ontreatment due to cardiac concern and need for cardiology follow-up. Evaluated by cardiology yesterday because of recorded tachycardia. Had a 15 Day Loop monitor placed. Patient has a scheduled follow-up with her psychiatrist. Patient Active Problem List Diagnosis Alcohol intake above recommended sensible limits Routine health maintenance Mood disorder ([facility]) Current Outpatient Medications on File Prior to Visit Medication Sig Dispense Refill amphetamine-dextroamphetamine (Adderall) 10 MG tablet Take 1 tablet by mouth Once per day. paliperidone (Invega) 6 MG 24 hr tablet Take 1 tablet by mouth in the morning. QUEtiapine (SEROquel) 100 MG tablet Take 1 tablet by mouth at bedtime. TEGretol-XR 200 MG 12 hr tablet Take 1 tablet by mouth at bedtime. topiramate 50 MG tablet Take 1 tablet by mouth at bedtime. Vyvanse 60 MG capsule Take 1 capsule by mouth in the morning. [DISCONTINUED] hydrOXYzine HCl (Atarax) 25 MG tablet Take 1 tablet (25 mg) by mouth if needed at bedtime for itching. 30 tablet 3 [DISCONTINUED] QUEtiapine (SEROquel) 100 MG tablet (in addition to 100mg at bedtime) (Patient taking differently: Take 1 to 1.5 tablets every night at bedtime as needed) 30 tablet 0 [DISCONTINUED] Vyvanse 50 MG capsule Take 50 mg by mouth in the morning. No current facility-administered medications on file prior to visit. Review of Systems Constitutional: Negative for appetite change, chills and diaphoresis. Eyes: Negative for photophobia, pain and redness. Respiratory: Negative for cough, choking and shortness of breath. Cardiovascular: Negative for leg swelling. Gastrointestinal: Negative for abdominal pain and anal bleeding. Musculoskeletal: Negative for arthralgias and back pain. Objective Physical Exam Constitutional: General: She is not in acute distress. Appearance: Normal appearance. She is not ill-appearing, toxic-appearing or diaphoretic. Cardiovascular: Rate and Rhythm: Normal rate and regular rhythm. Pulmonary: Effort: Pulmonary effort is normal. No respiratory distress. Breath sounds: No wheezing. Neurological: General: No focal deficit present. Mental Status: She is alert. Psychiatric: Mood and Affect: Mood is anxious. Affect is labile. Assessment/Plan Diagnoses and all orders for this visit: Mood disorder (CMS/HCC) Comments: Follow-up with psychiatry EKG: Normal. No QT prolongation Orders: - ECG 12 lead Alcohol intake above recommended sensible limits Comments: Declines help to continue remaining sober Patient feels he can stop drinking by herself Orders: - ECG 12 lead documented in this encounter Plan of Treatment Scheduled Orders Name Type Priority Associated Diagnoses Orde r Schedule Basic Metabolic Panel Lab Routine Mood disorder (CMS/HCC) Expected: 11/23/2024 (Approximate), Expires: 11/23/2025 documented as of this encounter Procedures Procedure Name Priority Date/Time Associated Diagnosis Comments ECG 12-LEAD Routine 11/23/2024 3:58 PM EST Mood disorder (CMS/HCC) Alcohol intake above recommended sensible limits documented in this encounter Results * ECG 12 lead (11/23/2024 3:58 PM EST) Narrative Ravin Gibbs MD - 11/23/2024 3:58 PM EST Heart rate 88 bpm. ??[place] 0 degrees. ??QTc 397 ms. ??Sinus rhythm. ??No sign of left atrial enlargement/right atrial enlargement. ??No sign of hypertrophy. ??No ST-T segment elevation depression us Ravin Gibbs MD ECG ORDERABLES Final Resul t documented in this encounter Visit Diagnoses Diagnosis Mood disorder (CMS/HCC)- Primary Unspecified episodic mood disorder Alcohol intake above recommended sensible limits documented in this encounter Care Teams Commissary Agent Relationship Specialty Start Date End Date Hannah Brothers FNP [address] [place] [id number] PCP - General Family Medicine 07/24/22 documented as of this encounter
--- OUTSIDE RECORDS SUMMARY | 2024-11-23 19:22 | XMS_ITS | Clinical Summary ---
Author Organization [facility] ity Address [address] [place] [address] Care Team Providers Care Physical Therapy Asst Name Role Phone Unavailable Primary Care Provider Unavailabl e Social History Tobacco Use Types Packs/Day Years Used Date Smoking Tobacco: Never Assessed Sex and Gender Information Value Date Recorded Sex Assigned at Not on file Gender Identity Not on file Sexual Orientation Not on file Plan of Treatment Health Maintenance Due Date Last Done Comments Breast Cancer Screening 1981 DTaP,Tdap,and Td Vaccines (1 - Tdap) 2000 Hepatitis B Vaccines (1 of 3 - 19+ 3-dose series) 2000 Cervical Cancer Screening: P ap Smear 2002 Depression Screening 11/16/2023 HIV Screening 11/16/2023 Hepatitis C Screening 11/16/2023 Social Influencers of Health Screening 11/16/2023 COVID-19 Vaccine (2023-2 5 season) 2024 Influenza Vaccine (#1) 2024 HIB Vaccines Aged Out No longer eligi [...] on patient's age to complete this topic MMR Vaccines Aged Out No longer eligi ble based on patient's age to complete this topic Meningococcal ACWY Vaccine Aged Out N o longer eligible based on patient's age to complete this topic Pneumococcal Vaccine: Pediat rics (0 to 5 Years) and At-Risk Patients (6 to 64 Years) Aged Out No longer eligible b ased on patient's age to complete this topic RSV Immunization Patients Un kaiser 20 months Aged Out No longer eligible b ased on patient's age to complete this topic Varicella Vaccines Aged Out No longer eligible based on patient's age to complete this topic
[2024-11-24 12:33] LABS: Complement C3 154 mg/dL (83-193)
[2024-11-24 16:33] LABS: Myeloperoxidase Antibody <1.0 AI; Proteinase 3 PR3 Antibodies <1.0 AI
== END 2024-11-23 15:43 | disposition home or self-care (01) ==
LOC: HO.CHCLDS 15:42
PROVIDERS: Visit Provider Internal Medicine Nephrology
DX: N17.9 Acute kidney failure, unspecified (principal)
CPT/HCPCS: 36415; 80051; 82310; 82565; 84520; 85025; 86021; 86160; 87086